=== PATIENT | male | born 1980 | race Caucasian/White ===

== ENCOUNTER 2018-07-06 21:19 | Emergency (ER) | payer SELFPAY ==
[2018-07-06 21:27] VITALS: BP 118/73; PULSE 105; RESP 15; TEMP 36.1; O2SAT 96
--- NOTE | 2018-07-06 21:52 | ED_ITS ---
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 He states he was not wearing a vascular glasses at the time. He states he has just been closing his eyes when he did the welding. He states that he thinks that there is a different type of metal in the welding handle that was burning much hotter than normal. He states that there was not 1 specific incident that caused him to have eye pain. He states that he got home from work and had gradually worsening discomfort in both of his eyes. Related Data Previous Rx's Medication Instructions Recorded tramadol 50 mg PO Q6HP PRN #20 tab 01/11/17 carboxymethylcellulose sodium 1 drop EYE-BOTH .as needed #50 each 07/06/18 [Refresh Plus] erythromycin 0.5 inch EYE-BOTH TID 3 Days #1 07/06/18 gram Allergies Allergy/AdvReac Type Severity Reaction Status Date / Time Sulfa (Sulfonamide Allergy Unknown Unverified 05/26/17 12:13 Antibiotics) [SULFA (SULFONAMIDE ANTIBIOTICS)] Review of Systems Constitutional Denies chills, Denies fatigue and Denies headache(s) Eyes Denies eye discharge, Reports irritation, Reports eye pain, Denies seeing flashes and Reports photophobia ENT Ears, Nose, Mouth, and Throat: Denies vertigo, Denies facial pain and Denies headache(s) Cardiovascular Denies chest pain and Denies dyspnea Respiratory Denies dyspnea Integumentary/Breasts Denies rash Neurologic Denies vertigo and Denies headache(s) Endocrine Denies fatigue Hematologic/Lymphatic Denies easy bleeding and Denies easy bruising REPLACED BY [facility] Medical History Patient denies medical problems (Acute) Social History Smoking Status: Current every day smoker Social History Smoking Status: Current every day smoker Exam Initial Vital Signs Initial Vital Signs: Vital Signs Temperature 97.0 F L 07/06/18 21:27 Pulse Rate 105 H 07/06/18 21:27 Respiratory Rate 15 07/06/18 21:27 Blood Pressure 118/73 07/06/18 21:27 Pulse Oximetry 96 07/06/18 21:27 Const General: No comfortable (On comfortable) Orientation: alert, awake and oriented x3 HENMT Head: normal to inspection and normocephalic Face and sinus: normal facial exam Eyes Periorbital: periorbital findings abnormal (Redness the skin around the eyes) Eyelids: other (Redness around the eyelids) Conjunctivae: conjunctivae normal Cornea: corneas abnormal bilaterally fluorescein used and abrasion diffuse and fluorescein used Pupils: PERRL EOM: EOM intact bilaterally Resp Effort & Inspection: normal respiratory effort Cardio Rate: tachycardic Rhythm: regular rhythm Skin Other: Redness of the skin on his face and eyelids and upper chest and hands. Neuro General: alert and awake Speech: speech normal Extrem General: normal to inspection and capillary refill normal Course Orders Ordered: Discontinued Medications Hydrocodone Bitart/Acetaminophen (Vicodin Prepack) 1 bottle MISC SEEINSTR ONE Stop: 07/06/18 22:58 Last Admin: 07/06/18 23:10 Dose: 1 bottle Hydrocodone Bitart/Acetaminophen ([place] 5/325) 1 tab PO NOW ONE Stop: 07/06/18 22:58 Last Admin: 07/06/18 23:10 Dose: 1 tab Erythromycin (Erythromycin Ophth Oint) 1 applic EYE-BOTH NOW ONE Stop: 07/06/18 22:58 Last Admin: 07/06/18 23:10 Dose: 1 applic Vital Signs - 8 hr 07/06/18 21:27 07/06/18 23:06 Temperature 97.0 F L Pulse Rate 105 H 58 L Respiratory Rate 15 17 Blood Pressure 118/73 Blood Pressure [Left Arm] 129/86 Pulse Oximetry 96 100 MDM - Eye Problem MDM Narrative Medical decision making narrative: Patient was some improvement after the tetracaine eyedrops. There is no foreign bodies noted on exam. Visual acuity is noted. He does have redness of his face and upper chest and arms which I suspect is the heat from the welding today. I do suspect that he has prado to his eyes evident by the diffuse abrasions with the fluorescein staining. I did discuss the case with the on-call vacuum applicator operator at [facility] who recommended copious amounts of refresh tears and also erythromycin ointment. She stated that as long as the patient's symptoms improved in the next couple days he did not necessarily need follow-up with Ophthalmology. Patient was given the phone number for the ophthalmology group here in the area just in case. Also sent home with pain medication. Patient does not were contacts. No prior eye surgeries. He was given return precautions and follow-up instructions. He expressed understanding and agreement with plan. Discharge Plan Departure Patient Disposition: Home Clinical Impression: Bilateral corneal abrasions Qualifiers: Encounter type: initial encounter Qualified Code(s): S05.01XA - Injury of conjunctiva and corneal abrasion without foreign body, right eye, initial encounter Discharge Date/Time: 07/06/18 23:22 Interventions: ED Discharge Assessment Last Done: 07/06/18 23:20 Instructions: DI for Corneal Abrasion Activity Restrictions/Additional Instructions: Use the antibiotic ointment as directed. Also use the refresh tears as directed. If your symptoms are not improving in the next couple days please contact the ophthalmology clinic here at the hospital at [phone]. Return to the emergency department for any new or worsening symptoms Prescriptions: New erythromycin 5 mg/gram (0.5 %) ointment 0.5 inch EYE-BOTH TID 3 Days Qty: 1 RF: 0 Refresh Plus 0.5 % dropperette 1 drop EYE-BOTH .as needed Qty: 50 RF: 0 No Action tramadol 50 MG tablet 50 mg PO Q6HP PRNQty: 20 RF: 0 Referrals: Andreina Chen ARNP [Primary Care Provider] -
[2018-07-06 23:06] VITALS: BP 129/86; PULSE 58; RESP 17; O2SAT 100
[2018-07-06] MEDS: HYDROCODONE/ACET 5/325 TABLET 1 TAB PO (23:10)
[2018-07-06] MEDS: HYDROCODONE/ACET 5/325 PREPACK 1 BOTTLE MISC (23:10)
[2018-07-06] MEDS: ERYTHROMYCIN OPHTH 1 GM OINT 1 APPLIC EYE-BOTH (23:10)
== END 2018-07-06 23:22 | disposition home or self-care (01) ==
PROVIDERS: Emergency Provider Emergency Medicine; PCP Nurse Practitioner Family
DX: S05.01XA Injury of conjunctiva and corneal abrasion without foreign body, right eye, initial encounter (principal); Y93.89 Activity, other specified
CPT/HCPCS: 99283

== ENCOUNTER 2019-11-14 18:55 | Emergency (ER) | payer SELFPAY ==
[2019-11-14 18:59] VITALS: BP 125/72; PULSE 78; RESP 18; TEMP 36.3; O2SAT 99
[2019-11-14 19:33] LABS: COVID19 -Nasal RAPID Negative (Negative)
--- NOTE | 2019-11-14 20:45 | ED.GENADULT ---
HPI - General Adult General Chief complaint: Upper Respiratory Symptoms Stated complaint: COUGH THROAT SWELLING Time Seen by Provider: 11/14/19 20:40 Source: patient Mode of arrival: Ambulatory Limitations: no limitations History of Present Illness HPI narrative: 39-year-old male here for evaluation of a cough and sore throat a problems breathing. No fevers. This evening on the past couple days. Patient is asking for a COVID-19 test. Related Data Previous Rx's Medication Instructions Recorded tramadol 50 mg PO Q6HP PRN #20 tab 01/11/17 carboxymethylcellulose sodium 1 drop EYE-BOTH .as needed #50 each 07/06/18 [Refresh Plus] Allergies Allergy/AdvReac Type Severity Reaction Status Date / Time Sulfa (Sulfonamide Allergy Unknown Unverified 05/26/17 12:13 Antibiotics) [SULFA (SULFONAMIDE ANTIBIOTICS)] Review of Systems Constitutional Constitutional: Reports chills, Reports fatigue and Denies headache(s) ENT Ears, Nose, Mouth, and Throat: Denies headache(s), Denies sinus pain and Reports sore throat Cardiovascular Cardiovascular: Reports dyspnea Respiratory Respiratory: Denies cough and Reports dyspnea Musculoskeletal Musculoskeletal: Denies myalgias Integumentary/Breasts Skin/Breast: Denies lesions and Denies rash Neurologic Neurologic: Denies headache(s) Endocrine Endocrine: Reports fatigue Hematologic/Lymphatic Hematologic/Lymphatic: Denies easy bleeding and Denies easy bruising Patient History Medical History Patient denies medical problems (Acute) Social History Smoking Status: Current every day smoker Smoking Status: Current every day smoker alcohol intake frequency: holidays/special occasions only Substance Use Type: crack/cocaine and other Exam Initial Vital Signs Initial Vital Signs: Vital Signs Temperature 97.3 F L 11/14/19 18:59 Pulse Rate 78 11/14/19 18:59 Respiratory Rate 18 11/14/19 18:59 Blood Pressure 125/72 11/14/19 18:59 Pulse Oximetry 99 11/14/19 18:59 Const General: cooperative and comfortable Limitations: mental status not altered HENMT Head: normal to inspection and normocephalic Ears: TM's normal bilaterally Nose: external nose normal Teeth and gingiva: dentition normal Throat: posterior oropharynx normal Resp Effort & Inspection: normal respiratory effort Auscultation: clear to auscultation bilaterally Cardio Rate: regular rate Rhythm: regular rhythm Skin Lesions: no lesions Rashes: no rashes Extrem General: normal to inspection and capillary refill normal Psych Appearance: grossly normal and well kempt Course Orders Ordered: ED Orders 11/14/19 19:04 COVID19 -ED/INPAT/OR/L&D Stat Discontinued Medications Albuterol (Ventolin Hfa Prepack) 1 box MISC SEEINSTR ONE Stop: 11/14/19 20:46 Last Admin: 11/14/19 20:58 Dose: 1 box Documented by: KIP Vital Signs Vital signs: Vital Signs - 8 hr 11/14/19 20:56 Pulse Rate 72 Respiratory Rate 19 Blood Pressure 123/74 Pulse Oximetry 98 Medical Decision Making Lab Data Lab results reviewed: Yes I reviewed the patient's lab results. Labs: Lab Results 11/14/19 Range/Units 19:04 COVID-19 PCR Negative (Negative) MDM Narrative Medical decision making narrative: Patient has a benign exam. No objective findings concerning for infection. His COVID-19 test was negative. Patient was informed of this. Again hold on further workup for now. Patient was given return precautions and follow-up instructions. He expressed understanding and agreement. Discharge Plan Departure Patient Disposition: Home Clinical Impression: Upper respiratory infection Qualifiers: URI type: unspecified URI Qualified Code(s): J06.9 - Acute upper respiratory infection, unspecified Discharge Date/Time: 11/14/19 20:55 Activity Restrictions/Additional Instructions: Use the albuterol as needed. Your coronavirus test today was negative. I recommend that you start taking an antihistamine such as Claritin or Jasmin or Zyrtec. You can purchase these [id number]. Return to the emergency department for any new or worsening symptoms Prescriptions: No Action tramadol 50 MG tablet 50 mg PO Q6HP PRNQty: 20 RF: 0 Refresh Plus 0.5 % dropperette 1 drop EYE-BOTH .as needed Qty: 50 RF: 0 Referrals: Andreina Chen ARNP [Primary Care Provider] -
--- NOTE | 2019-11-14 20:50 | PC.NURSE ---
RT in room to give pt MDI spacer and prepack.
[2019-11-14 20:56] VITALS: BP 123/74; PULSE 72; RESP 19; O2SAT 98
[2019-11-14] MEDS: ALBUTEROL HFA PREPACK 1 BOX MISC (20:58)
== END 2019-11-14 20:55 | disposition home or self-care (01) ==
PROVIDERS: Emergency Provider Emergency Medicine; PCP Nurse Practitioner Family
DX: J06.9 Acute upper respiratory infection, unspecified (principal)
CPT/HCPCS: 87635; 99281; 99283

== ENCOUNTER 2021-03-03 19:00 | Emergency (ER) | payer OTHER, MEDICAID, SELFPAY ==
[2021-03-03 19:33] VITALS: BP 124/96; PULSE 94; RESP 18; TEMP 36.6; O2SAT 97; BMI 28.8
--- NOTE | 2021-03-03 19:53 | ED_ITS ---
HPI - Animal Bite General Chief Complaint: Animal Bite Stated Complaint: Snake Bite, Water [place] Time Seen by Provider: 03/03/21 19:50 Source: patient Mode of arrival: Ambulatory History of Present Illness HPI narrative: Patient is a 32-year-old male who presents with left hand pain. He states he drove his car up from [place] was working on the engine yesterday. He instantly felt sharp something his left pinky finger. He felt like it swelled up immediately. He said there were 2 holes. he squeezed and hard stuff came out of the holes. The truck came up from [place].The director marketing analytics thought it might be a water moccasin snake however no snake was actually seen. And that no rodent or insect was seen either. He had instant pain and is having increasing pain and numbness in his hand. No fever or chills. Both hands are extremely red and covered and engine grime. Both hands are quite erythematous, he states it is from soaking his hands in red Gatorade. He said he did not have water nearby after he was bit, so he used the red Gatoradeto soak and clean. Admits that he does smoke methamphetamine occasionally. Related Data Previous Rx's Medication Instructions Recorded tramadol 50 mg tablet 50 mg PO Q6HP PRN #20 tab 01/11/17 carboxymethylcellulose sodium 0.5 1 drop EYE-BOTH .as needed #50 each 07/06/18 % eye drops in a dropperette (Refresh Plus) doxycycline hyclate 100 mg capsule 100 mg PO BID #20 cap 03/03/21 Allergies Allergy/AdvReac Type Severity Reaction Status Date / Time Sulfa (Sulfonamide Allergy Unknown Verified 03/03/21 20:02 Antibiotics) [SULFA (SULFONAMIDE ANTIBIOTICS)] Review of Systems Review of Systems Narrative: GENERAL: Denies chills,fever HEENT: Denies throat pain RESPIRATORY: Denies dyspnea, cough, wheezing CARDIOVASCULAR: Denies chest pain, palpitations GASTROINTESTINAL: Denies nausea, vomiting MUSCULOSKELETAL: Denies extremity pain, injury SKIN: See HPI NEUROLOGIC: Denies weakness, dizziness, headache, numbness 8 point review of systems is negative except for those stated above and HPI Patient History Medical History Patient denies medical problems Social History Smoking Status: Current every day smoker Smoking Status: Current every day smoker alcohol intake frequency: holidays/special occasions only Substance Use Type: crack/cocaine and other Exam Initial Vital Signs Initial Vital Signs: Vital Signs Temperature 97.9 F 03/03/21 19:33 Pulse Rate 94 H 03/03/21 19:33 Respiratory Rate 18 03/03/21 19:33 Blood Pressure 124/96 H 03/03/21 19:33 Pulse Oximetry 97 03/03/21 19:33 GENERAL: Well-appearing, well-nourished and in no acute distress. CARDIOVASCULAR: peripheral pulses in tact, cap refill <2 sec RESPIRATORY: No respiratory distress, speaks in full sentences without difficulty EXTREMITIES: Normal range of motion, no clubbing or edema. Neurovascularly intact Left hand little finger between MCP and PIP is swollen no gross drainage he is able to move MCP and PIP and the IP however range of motion is significantly decreased. His hand is scrubbed and cleaned and soaked. No laceration NEUROLOGICAL: Cranial nerves II through XII grossly intact. Normal gait and speech. SKIN: Wound as described above. No laceration no significant fluctuation no drainage. No surrounding erythema Course Orders Ordered: Discontinued Medications Hydromorphone HCl (Hydromorphone 1 Mg Inj) 1 mg IV NOW ONE Stop: 03/03/21 19:55 Last Admin: 03/03/21 20:03 Dose: 1 mg Documented by: SHANTE Vital Signs Vital signs: Vital Signs - 8 hr 03/03/21 23:12 Pulse Rate 68 Respiratory Rate 18 Blood Pressure 119/63 Pulse Oximetry 100 MDM - Animal Bite Lab Data Result diagrams: 03/03/21 19:58 03/03/21 19:58 Labs: Lab Results 03/03/21 03/03/21 03/03/21 Range/Units 19:58 19:58 19:58 WBC 9.7 (4.5-11.0) X10^3/uL RBC 4.84 (4.5-5.9) X10^6/uL Hgb 14.9 (13.5-17.5) g/dL Hct 43.1 (41-53) % MCV 88.9 (80-100) fL MCH 30.8 (26-34) PG MCHC 34.6 (30-36) % RDW 12.9 (11.6-14.8) % Plt Count 248 (150-400) X10^3/uL Neut % (Auto) 64.5 (50-75) % Lymph % (Auto) 22.6 L (25-40) % [place] % (Auto) 7.8 (3-14) % Eos % (Auto) 4.2 H (2-4) % Baso % (Auto) 0.9 (0-2) % Neut # (Auto) 6300 (0142-1917) /uL Lymph # (Auto) 2200 (7083-1206) /uL [place] # (Auto) 800 (0-900) /uL Eos # (Auto) 400 (0-450) /uL Baso # (Auto) 100 (0-100) /uL PT 11.4 (10.1-12.7) SECONDS INR 1.0 (0.9-1.3) APTT 35 (26.4-36.2) SECONDS Fibrinogen 297 (211-428) mg/dL Sodium 137 (137-145) mmol/L Potassium 4.4 (3.4-5.1) mmol/L Chloride 102 (98-107) mmol/L Carbon Dioxide 30 (22-32) mmol/L BUN 21 H (9-20) mg/dL Creatinine 0.88 (0.66-1.25) mg/dL Estimated GFR > 60.0 (>60) mL/min BUN/Creatinine Ratio 23.9 H (6-22) Glucose 108 H (70-100) mg/dL Calcium 9.6 (8.4-10.2) mg/dL Total Bilirubin 1.3 (0.2-1.3) mg/dL AST 81 H (17-59) IU/L ALT 111 H (<50) IU/L Alkaline Phosphatase 89 (38-126) U/L Total Creatine Kinase 278 H (55-170) U/L Total Protein 8.0 (6.3-8.2) g/dL Albumin 4.3 (3.5-5.0) g/dL Globulin 3.7 (1.7-4.1) g/dL Albumin/Globulin Ratio 1.2 (1.0-2.8) MDM Narrative Medical decision making narrative: Patient does have a wound noted in his left pinky MCP on the palmar side. No abscess. No sign of flexor tenosynovitis. Blood work looks okay. Poison Control was contacted. Their recommendations were followed including blood work. At this time patient has no systemic infections of possible poisonous snake bite. Fibrinogen and coagulation and platelets are within normal limits. There are multitude of other things that this could be. Will start him on antibiotics. 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 Discharge Plan Departure Patient Disposition: Home Clinical Impression: Bite by animal Instructions: DI for Spider Bites, DI for Snake Bite Activity Restrictions/Additional Instructions: *You have been diagnosed with bite left hand *What to do: It is unclear what you were bit by. He will be started on antibiotics. Please keep arm elevated to allow for drainage. Apply ice 20-30 minutes as needed *Continue to take medications as directed Doxycycline 100 mg twice a day for or 10 days *Follow up with your primary care provider in 2-3 days or call [phone] *Return to ER if you should have increased pain her swelling in finger, decreased range of motion, inability to bend finger, fever, abnormal bruising bleeding or any new, worsening or concerning symptoms Prescriptions: New doxycycline hyclate 100 mg capsule 100 mg PO BID Qty: 20 0RF No Action tramadol 50 MG tablet 50 mg PO Q6HP PRNQty: 20 0RF Refresh Plus 0.5 % dropperette 1 drop EYE-BOTH .as needed Qty: 50 0RF
[2021-03-03] MEDS: HYDROMORPHONE 1 MG INJ IV (20:03)
[2021-03-03 20:09] LABS: Add Manual Diff / Slide Review NO; Basophils Absolute Auto 100 /uL (0-100); Basophils Percent Auto 0.9 % (0-2); Eosinophils Absolute Auto 400 /uL (0-450); Eosinophils Percent Auto 4.2 % (2-4); Hematocrit 43.1 % (41-53); Hemoglobin 14.9 g/dL (13.5-17.5); Lymphocytes Absolute Auto 2200 /uL (1100-4500); Lymphocytes Percent Auto 22.6 % (25-40); Mean Corpuscular HGB Conc 34.6 % (30-36); Mean Corpuscular Hemoglobin 30.8 PG (26-34); Mean Corpuscular Volume 88.9 fL (80-100); Monocytes Absolute Auto 800 /uL (0-900); Monocytes Percent Auto 7.8 % (3-14); Neutrophils Absolute Auto 6300 /uL (1500-7000); Neutrophils Percent Auto 64.5 % (50-75); Platelet Count 248 X10^3/uL (150-400); Red Blood Cell Count 4.84 X10^6/uL (4.5-5.9); Red Cell Distribution Width 12.9 % (11.6-14.8); White Blood Cell Count 9.7 X10^3/uL (4.5-11.0)
[2021-03-03 20:15] LABS: Prothrombin Time 11.4 SECONDS (10.1-12.7)
[2021-03-03 20:16] LABS: Alanine Aminotransferase 111 IU/L (<50); Albumin 4.3 g/dL (3.5-5.0); Albumin Globulin Ratio 1.2 (1.0-2.8); Alkaline Phosphatase 89 U/L (38-126); Aspartate Aminotransferase 81 IU/L (17-59); BUN Creatinine Ratio 23.9 (6-22); Bilirubin Total 1.3 mg/dL (0.2-1.3); Blood Urea Nitrogen 21 mg/dL (9-20); Calcium 9.6 mg/dL (8.4-10.2); Carbon Dioxide 30 mmol/L (22-32); Chloride 102 mmol/L (98-107); Creatine Kinase 278 U/L (55-170); Estimated Glomerular Filt Rate > 60.0 mL/min (>60); Fibrinogen 297 mg/dL (211-428); Globulin 3.7 g/dL (1.7-4.1); Glucose 108 mg/dL (70-100); HEMOLYSIS 22 (0-50); Potassium 4.4 mmol/L (3.4-5.1); Sodium 137 mmol/L (137-145)
[2021-03-03 20:18] LABS: PTT Partial Thromboplastin Tim 35 SECONDS (26.4-36.2)
[2021-03-03 23:12] VITALS: BP 119/63; PULSE 68; RESP 18; O2SAT 100
== END 2021-03-03 23:25 | disposition home or self-care (01) ==
PROVIDERS: Emergency Provider Emergency Medicine
DX: S61.257A Open bite of left little finger without damage to nail, initial encounter (principal); X58.XXXA Exposure to other specified factors, initial encounter
CPT/HCPCS: 36415; 80053; 82550; 85025; 85384; 85610; 85730; 96374; 99284; J1170

== ENCOUNTER 2021-03-07 00:23 | Inpatient (IN) | payer OTHER, MEDICAID, SELFPAY ==
[2021-03-07] VITALS (12 sets, daily range): BP systolic 105–170; BP diastolic 56–90; PULSE 68–88; RESP 11–99; TEMP 36.2–37.1; O2SAT 11–100; BMI 28.8
--- NOTE | 2021-03-07 00:38 | DI.CT.S_ITS ---
PROCEDURE: CT UE LT W CON INDICATIONS: 5th finger probable abcess TECHNIQUE: After the administration of intravenous contrast, 3 mm axial sections acquired of the left hand and wrist, with coronal and sagittal reformats. COMPARISON: None. FINDINGS: Image quality: Excellent. Bones: Alignment of left distal forearm, wrist and left hand is anatomic. There is no acute fracture or dislocation. Likely old healed injury involving 1st distal phalangeal tuft is seen with well corticated fragment. No gross bony erosive changes. No suspicious intraosseous lesion. Soft tissues: Significant soft tissue swelling and edema surrounding ulnar aspect of left hand extending from distal 5th metacarpal shaft through tip of 5th finger with skin thickening. No discrete drainable fluid collection is identified. No full-thickness extensor or flexor tendon rupture. IMPRESSION: 1. Cellulitis involving left 5th finger. No discrete drainable abscess collection is seen. 2. No acute left hand fracture or dislocation. No evidence of osteomyelitis. Old healed injury involving 1st distal phalangeal tuft. Dictated by: Richi No M.D. on 03/07/2021 at 1:31 Approved by: Richi No M.D. on 03/07/2021 at 1:35
[2021-03-07] MEDS: LORazepam 2 MG/ML INJ 1 MG IV (00:53)
[2021-03-07] MEDS: cefTRIAXone 1,000 MG in SODIUM CHLORIDE 0.9% 100 ML 200 ML IV ×2 (00:53→22:38)
[2021-03-07] MEDS: HYDROMORPHONE 1 MG INJ IV (00:53)
[2021-03-07 01:04] LABS: Lactate (Lactic Acid) 1.8 mmol/L (0.7-2.1)
[2021-03-07 01:09] LABS: Add Manual Diff / Slide Review NO; Basophils Absolute Auto 100 /uL (0-100); Basophils Percent Auto 0.9 % (0-2); Eosinophils Absolute Auto 400 /uL (0-450); Eosinophils Percent Auto 3.3 % (2-4); Hemoglobin 14.6 g/dL (13.5-17.5); Lymphocytes Absolute Auto 1900 /uL (1100-4500); Lymphocytes Percent Auto 16.5 % (25-40); Mean Corpuscular HGB Conc 33.9 % (30-36); Mean Corpuscular Hemoglobin 30.7 PG (26-34); Mean Corpuscular Volume 90.5 fL (80-100); Monocytes Absolute Auto 1200 /uL (0-900); Monocytes Percent Auto 10.4 % (3-14); Neutrophils Absolute Auto 8000 /uL (1500-7000); Neutrophils Percent Auto 68.9 % (50-75); Platelet Count 256 X10^3/uL (150-400); Red Blood Cell Count 4.75 X10^6/uL (4.5-5.9); Red Cell Distribution Width 12.9 % (11.6-14.8); White Blood Cell Count 11.6 X10^3/uL (4.5-11.0)
[2021-03-07 01:23] LABS: Alanine Aminotransferase 92 IU/L (<50); Albumin 4.1 g/dL (3.5-5.0); Albumin Globulin Ratio 1.2 (1.0-2.8); Alkaline Phosphatase 83 U/L (38-126); Aspartate Aminotransferase 52 IU/L (17-59); Blood Urea Nitrogen 13 mg/dL (9-20); C-Reactive Protein Quant 3.6 mg/dL (<1.0); Carbon Dioxide 33 mmol/L (22-32); Chloride 103 mmol/L (98-107); Estimated Glomerular Filt Rate > 60.0 mL/min (>60); Globulin 3.5 g/dL (1.7-4.1); Glucose 92 mg/dL (70-100); HEMOLYSIS < 15 (0-50); Potassium 4.4 mmol/L (3.4-5.1); Sodium 139 mmol/L (137-145); Total Protein 7.6 g/dL (6.3-8.2)
[2021-03-07 01:33] LABS: Erythrocyte Sedimentation Rate 10 MM/HR (0-15)
[2021-03-07 01:37] LABS: Procalcitonin 0.13 ng/mL (<0.5)
--- NOTE | 2021-03-07 01:40 | ED_ITS ---
HPI - Extremity Injury (Upper) General Chief Complaint: Extremity Injury, Upper Stated Complaint: blood clot left arm/pain cannot stand Time Seen by Provider: 03/07/21 00:30 Source: patient Mode of arrival: Wheelchair History of Present Illness HPI narrative: Patient is a 40-year-old male who had with to using methamphetamine and smoking heroin presenting today with worsening left hand pain and redness. He was initially seen and evaluated 4 days ago. He was working on his engine when he thought he was bit by a snake however is no be actually saw a snake or anything else that could have bit him. He denies injecting into that finger. He was put on doxycycline which he states he been taking, however he has had worsening pain swelling and redness. He has significant decreased range of motion in his the pinky. Pain seems to be quite a bit out of control at this time. He is not sure if he had any fever or chills. He has been smoking heroin to help with the pain. Patient has is covered and white elder he says that he has been soaking it and baking soda or baking powder. It is also washed off. Related Data Previous Rx's Medication Instructions Recorded doxycycline hyclate 100 mg capsule 100 mg PO BID #20 cap 03/03/21 Allergies Allergy/AdvReac Type Severity Reaction Status Date / Time Sulfa (Sulfonamide Allergy Unknown Verified 03/03/21 20:02 Antibiotics) [SULFA (SULFONAMIDE ANTIBIOTICS)] Review of Systems Review of Systems Narrative: GENERAL: Denies chills, fatigue, malaise, fever, sweats, travel HEENT: Denies sinus pain, ear pain, sore throat, difficulty swallowing, neck pain RESPIRATORY: Denies dyspnea, cough, wheezing, hemoptysis, sputum. CARDIOVASCULAR: Denies chest pain, palpitations, orthopnea, edema GASTROINTESTINAL: Denies nausea, vomiting, abdominal pain, diarrhea, constipation, melena. : Denies dysuria, frequency, incontinence, hematuria, urinary retention, flank pain. MUSCULOSKELETAL: Denies weakness, joint pain, or bony pain SKIN: See HPI NEUROLOGIC: Denies weakness, dizziness, headache, numbness, change in speech, confusion PSYCHIATRIC: Polysubstance use 12 point review of systems is negative except for those stated above and HPI Patient History Medical History (Updated 03/07/21 @ 01:55 by Kalyn Jimenez DO) Patient denies medical problems Social History household members: significant other Smoking Status: Current every day smoker alcohol intake: never Smoking Status: Current every day smoker alcohol intake frequency: holidays/special occasions only Substance Use Type: crack/cocaine, heroin and methamphetamine Exam Initial Vital Signs Initial Vital Signs: Vital Signs Temperature 98 F 03/07/21 00:31 Pulse Rate 88 03/07/21 00:31 Respiratory Rate 20 03/07/21 00:31 Blood Pressure 170/72 H 03/07/21 00:31 Pulse Oximetry 100 03/07/21 00:31 GENERAL: Alert 40-year-old male appears to be in severe pain HEENT: Head atraumatic,EOMI, pupils reactive, face symmetric, moist mucous membranes CARDIOVASCULAR: R no cyanosis peripheral pulses intact RESPIRATORY: No respiratory distress EXTREMITIES: Normal range of motion, no clubbing or edema. Neurovascularly intact NEUROLOGICAL: Alert and oriented x4. SKIN: Significant erythema noted on left hand mostly little finger however it is spreading over the dorsum of the hand quite a bit. Possible abscess between MCP and PIP. No actual drainage Course Orders Ordered: ED Orders 03/07/21 00:38 CT UE LT w con Stat 03/07/21 00:40 Lactate (Lactic Acid) Stat 03/07/21 00:55 Blood Culture Stat CBC Auto Diff [Complete Blood Count AUTO DIFF] Stat CMP [Comprehensive Metabolic Panel] Stat CRP [C-Reactive Protein Quant] Stat ESR [Erythrocyte Sedimentation Rate] Stat Procalcitonin Stat Discontinued Medications Hydromorphone HCl (Hydromorphone 1 Mg Inj) 1 mg IV NOW ONE Stop: 03/07/21 00:39 Last Admin: 03/07/21 00:53 Dose: 1 mg Documented by: URIAH Vancomycin HCl (Vancomycin) 1,250 mg in 250 mls @ 250 mls/hr IV NOW ONE Stop: 03/07/21 01:38 Last Infusion: 03/07/21 02:53 Dose: 0 mls/hr Documented by: Admin: 03/07/21 01:42 Dose: 250 mls/hr Documented by: LOUISE Ceftriaxone Sodium 1,000 mg/ (Sodium Chloride) 100 mls @ 200 mls/hr IV NOW ONE Stop: 03/07/21 00:39 Last Infusion: 03/07/21 01:41 Dose: 0 mls/hr Documented by: Admin: 03/07/21 00:53 Dose: 200 mls/hr Documented by: URIAH Lorazepam (Lorazepam 2 Mg/Ml Inj) 1 mg IV NOW ONE Stop: 03/07/21 00:39 Last Admin: 03/07/21 00:53 Dose: 1 mg Documented by: URIAH Vital Signs Vital signs: Vital Signs - 8 hr 03/07/21 00:31 03/07/21 01:33 Temperature 98 F Pulse Rate 88 84 Respiratory Rate 20 16 Blood Pressure 170/72 H 147/71 H Pulse Oximetry 100 98 MDM - Extremity Injury (Upper) Lab Data Result diagrams: 03/07/21 00:55 03/07/21 00:55 Labs: Lab Results 03/07/21 03/07/21 03/07/21 Range/Units 00:40 00:55 00:55 WBC 11.6 H (4.5-11.0) X10^3/uL RBC 4.75 (4.5-5.9) X10^6/uL Hgb 14.6 (13.5-17.5) g/dL Hct 43.0 (41-53) % MCV 90.5 (80-100) fL MCH 30.7 (26-34) PG MCHC 33.9 (30-36) % RDW 12.9 (11.6-14.8) % Plt Count 256 (150-400) X10^3/uL Neut % (Auto) 68.9 (50-75) % Lymph % (Auto) 16.5 L (25-40) % [place] % (Auto) 10.4 (3-14) % Eos % (Auto) 3.3 (2-4) % Baso % (Auto) 0.9 (0-2) % Neut # (Auto) 8000 H (4363-4331) /uL Lymph # (Auto) 1900 (7204-7982) /uL [place] # (Auto) 1200 H (0-900) /uL Eos # (Auto) 400 (0-450) /uL Baso # (Auto) 100 (0-100) /uL ESR 10 (0-15) MM/HR Sodium 139 (137-145) mmol/L Potassium 4.4 (3.4-5.1) mmol/L Chloride 103 (98-107) mmol/L Carbon Dioxide 33 H (22-32) mmol/L BUN 13 (9-20) mg/dL Creatinine 1.08 (0.66-1.25) mg/dL Estimated GFR > 60.0 (>60) mL/min BUN/Creatinine Ratio 12.0 (6-22) Glucose 92 (70-100) mg/dL Lactate 1.8 (0.7-2.1) mmol/L Calcium 9.0 (8.4-10.2) mg/dL Total Bilirubin 1.0 (0.2-1.3) mg/dL AST 52 (17-59) IU/L ALT 92 H (<50) IU/L Alkaline Phosphatase 83 (38-126) U/L C-Reactive Protein 3.6 H (<1.0) mg/dL Total Protein 7.6 (6.3-8.2) g/dL Albumin 4.1 (3.5-5.0) g/dL Globulin 3.5 (1.7-4.1) g/dL Albumin/Globulin Ratio 1.2 (1.0-2.8) Procalcitonin 0.13 (<0.5) ng/mL Imaging Data CT UE : Radiologist's Impression: PROCEDURE:? CT UE LT W CON ? INDICATIONS:? 5th finger probable abcess ? TECHNIQUE:? After the administration of intravenous contrast, 3 mm axial sections acquired of the left hand and wrist, with coronal and sagittal reformats. ? ? COMPARISON:? None. ? FINDINGS:? Image quality:? Excellent.? ? Bones:? Alignment of left distal forearm, wrist and left hand is anatomic.? There is no acute fracture or dislocation.? Likely old healed injury involving 1st distal phalangeal tuft is seen with well corticated fragment.? No gross bony erosive changes.? No suspicious intraosseous lesion. ? Soft tissues:? Significant soft tissue swelling and edema surrounding ulnar aspect of left hand extending from distal 5th metacarpal shaft through tip of 5th finger with skin thickening.? No discrete drainable fluid collection is identified.? No full- thickness extensor or flexor tendon rupture. ? IMPRESSION:? 1. Cellulitis involving left 5th finger.? No discrete drainable abscess collection is seen. 2. No acute left hand fracture or dislocation.? No evidence of osteomyelitis.? Old healed injury involving 1st distal phalangeal tuft.? ? Dictated by: Richi No M.D. on 03/07/2021 at 1:31 ? ? Approved by: Richi No M.D. on 03/07/2021 at 1:35? [facility] Narrative Medical decision making narrative: Patient is an pain out of proportion. He does have significant erythema and swelling of his left hand. Little finger has significantly decreased range of motion. It is held in why slight flexion concern for flexor tenosynovitis possible abscess this well. CT does not show abscess. He is afebrile with mild leukocytosis and elevated ESR. Pain is better with Dilaudid and Ativan. He is given Rocephin and vancomycin. Dr. No orthopedics has been updated on patient's symptoms test results and my concerns. At this time he agrees with IV antibiotics recommends NPO and MRI in the morning. Dr. Basilio, hospitalist updated patient's symptoms test results and orthopedic recommendations Discharge Plan Departure Patient Disposition: Admitted As Inpatient Clinical Impression: Cellulitis of hand Admit Date/Time: 03/07/21 01:59 Admit Provider: Alan Basilio
[2021-03-07] MEDS: VANCOMYCIN 1,250 MG/250 ML PIGGYBACK 250 MG IV (01:42)
[2021-03-07] MEDS: DEXTROSE 5%-0.9% NS 1,000 ML 100 ML IV (03:44)
[2021-03-07] MEDS: ZOLPIDEM 5 MG TABLET PO (03:44)
--- NOTE | 2021-03-07 03:55 | PC.NURSE ---
Pt. admitted from ER via wheelchair,diagnosed with left hand & fingers cellulitis. He was accompanied by his significant other Darline Devlin who will be staying in his room this morning. 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 C/O insomnia & pain, notified Dr. Basilio & order received, will implement orders PRN. Will cont. POC & monitor.
[2021-03-07] MEDS: HYDROMORPHONE 2 MG INJ 1 MG IV ×4 (04:39→23:55)
--- NOTE | 2021-03-07 06:09 | P.HP_ITS ---
History of Present Illness History of Present Illness Date Patient Seen: 03/07/21 Time Patient Seen: 06:09 Chief complaint: blood clot left arm/pain cannot stand Narrative: This is a 40 year old male with a left hand infection. He has no known past medical history. He has recently received Ambien and hydromorphone so is struggling to communicate at 5:00 a.m. today. His girlfriend is in the room and indicates that she is not aware of any other medical history. He does have chronically swollen hands and has been complaining to her about his hands hurting for some months. He was working on a car with his hand in an area that he could not see when he felt a sudden pain that he interpreted to be a ?bite?. No insect or snake or other animal capable of biting was seen. He was seen for this in the emergency department 5 days ago and was started on doxycycline. He returns last evening with increasing pain and swelling. His CRP is 3.6 with a white blood count of 11 and a normal ESR of 10. A CT scan of the left hand shows no discrete fluid collection. He was discussed with orthopedics who recommended that he undergo an MRI today and be kept NPO pending possible need for surgery. He has never had an infection like this before but his hands are c aked in grease and appear quite swollen bilaterally. Patient History Medical History (Updated 03/07/21 @ 06:23 by Alan Basilio MD) No pertinent past medical history Patient denies medical problems Surgical History (Updated 03/07/21 @ 06:23 by Alan Basilio MD) No significant past surgical history Family & Social History Family History (Updated 03/07/21 @ 06:24 by Alan Basilio MD) Mother No active medical problems Social History: household members significant other Prior Living Arrangements Mobile home Safety & Behavioral: Feels Safe in Current Yes Environment Been Physically Hurt or No Threatened By a Person Suicidal Ideation Description None Suicide Plan Description No Plan Tobacco & Substance use: Smoking Status Current every day smoker Smoking packs per day 1 alcohol intake never alcohol intake frequency holiday/special occasion Substance Use Type crack/cocaine,heroin,methamphetamine Comment: He lives alone in an on friend's property. His girlfriend, Darline Devlin, lives in her own home in [place]. 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 His hands are caked in grease. Meds Home Medications and Allergies Home Medications Medication Instructions Recorded Confirmed Type doxycycline hyclate 100 mg capsule 100 mg PO BID #20 cap 03/03/21 03/07/21 Rx Allergies Allergy/AdvReac Type Severity Reaction Status Date / Time Sulfa (Sulfonamide Allergy Unknown Verified 03/03/21 20:02 Antibiotics) [SULFA (SULFONAMIDE ANTIBIOTICS)] Review of Systems Review of Systems Narrative: Positive for bilateral hand swelling. Positive for left hand pain and infection Negative for fevers, chills, sweats, nausea, vomiting, abdominal pain, chest pain, dysuria, bleeding, rash, joint pain, seizures, headaches, new allergies. Exam Vital Signs (past 8 hours): - 03/07/21 00:31 03/07/21 01:33 03/07/21 03:10 Temperature 98 F 98.1 F Pulse Rate 88 84 81 Respiratory Rate 20 16 18 Blood Pressure 170/72 H 147/71 H 160/90 H Pulse Oximetry 100 98 99 Oxygen Delivery Method Room Air Narrative Exam Narrative: He is alert and oriented x3. No apparent distress He has recently received both Ambien and hydromorphone so appears quite sedated and is mumbling and difficult to understand. His girlfriend is sitting next to him and is able to interpret what he says and add to the history. Pupils are equally round and reactive to light and accommodation. Extraocular muscles are intact. Sclerae are pink and nonicteric Throat looks normal except for an enlarged tongue. No lymph nodes are felt head, neck, supraclavicular area. JVD is less than 6 cm No carotid bruits are heard Heart is regular rate and rhythm without murmur Lungs are clear to auscultation bilaterally Abdomen is soft, nontender, no organomegaly. Extremities there is no ankle edema or foot swelling Both hands are very puffy and swollen The back of the left hand as to healed scratches and has several areas of slight pink discoloration. This does not really localize well. This extends up to the forearm somewhat. He is guarding against movement of the left hand and is unable to make fist. Neurological exam. The patient is obtunded due to recent medication Cranial nerves 2-12 test intact There is no lateralizing of symmetry There is no tremor Motor function is 4/[address] Hand: Radiologist's impression: FINDINGS:? Image quality:? Excellent.? ? Bones:? Alignment of left distal forearm, wrist and left hand is anatomic.? There is no acute fracture or dislocation.? Likely old healed injury involving 1st distal phalangeal tuft is seen with well corticated fragment.? No gross bony erosive changes.? No suspicious intraosseous lesion. ? Soft tissues:? Significant soft tissue swelling and edema surrounding ulnar aspect of left hand extending from distal 5th metacarpal shaft through tip of 5th finger with skin thickening.? No discrete drainable fluid collection is identified.? No full-thickness extensor or flexor tendon rupture. ? IMPRESSION:? 1. Cellulitis involving left 5th finger.? No discrete drainable abscess collection is seen. 2. No acute left hand fracture or dislocation.? No evidence of osteomyelitis.? Old healed injury involving 1st distal phalangeal tuft.? ? Dictated by: Richi No M.D. on 03/07/2021 at 1:31 ? Labs Result Diagrams: 03/07/21 00:55 03/07/21 00:55 Labs: Laboratory Results - last 24 hr 03/07/21 03/07/21 03/07/21 00:40 00:55 00:55 WBC 11.6 H RBC 4.75 Hgb 14.6 Hct 43.0 MCV 90.5 MCH 30.7 MCHC 33.9 RDW 12.9 Plt Count 256 Neut % (Auto) 68.9 Lymph % (Auto) 16.5 L [place] % (Auto) 10.4 Eos % (Auto) 3.3 Baso % (Auto) 0.9 Neut # (Auto) 8000 H Lymph # (Auto) 1900 [place] # (Auto) 1200 H Eos # (Auto) 400 Baso # (Auto) 100 ESR 10 Sodium 139 Potassium 4.4 Chloride 103 Carbon Dioxide 33 H BUN 13 Creatinine 1.08 Estimated GFR > 60.0 BUN/Creatinine Ratio 12.0 Glucose 92 Lactate 1.8 Calcium 9.0 Total Bilirubin 1.0 AST 52 ALT 92 H Alkaline Phosphatase 83 C-Reactive Protein 3.6 H Total Protein 7.6 Albumin 4.1 Globulin 3.5 Albumin/Globulin Ratio 1.2 Procalcitonin 0.13 Assessment & Plan Assessment & Plan narrative: This is a 40-year-old previously healthy male with recent onset of bilateral hand pain and swelling who now presents with acute pain/swelling in the left hand after a ?bite? 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 Left hand cellulitis, present on admission. Active. -worsening despite 4-5 days of oral doxycycline. -CRP elevated at 3.6 with ESR of 10 and white blood count of 11. -begin vancomycin and ceftriaxone IV -hand MRI pending -orthopedic consult pending, patient is now NPO as a precaution for possible need for debridement. Bilateral hand swelling, present on admission. Active. -repeat CRP, check growth hormone -rule out rheumatologic disorder No Lovenox indicated so far as patient is mobile in the room without expected prolonged immobilization. Time Spent With Patient Critical Care time: I spent a total of [] minutes of critical care time on this patient's care today; this time is exclusive of procedural time. Quality VTE Deep Vein Thrombosis/Pulmonary Embolism Present on Admission: No
--- NOTE | 2021-03-07 06:34 | DI.MRI.S_ITS ---
PROCEDURE: MR HAND LT WO/W CON INDICATIONS: hand abscess TECHNIQUE: Noncontrast coronal T1 spin echo and STIR, sagittal T1 spin echo with fat saturation and STIR, axial T1 spin echo and T2 fast spin echo with fat saturation. After the administration of contrast, axial/sagittal/coronal T1 spin echo with fat saturation through the left hand. COMPARISON: [facility], CT, CT UE LT W CON, 03/07/2021, 0:41. [facility], CR, HAND 3V LEFT, 08/09/2014, 21:50. FINDINGS: Image quality: There is inhomogeneous fat saturation limiting evaluation. Bones: No acute fracture. There is an old fracture of the 5th distal phalanx. There is also a small chronic fracture fragment adjacent to the 1st distal phalanx. There is suspected minimal edema and enhancement within the 5th middle phalanx suspicious for osteomyelitis. No discrete bony erosions. No joint effusions. Soft tissues: There is diffuse soft tissue edema and enhancement of the 5th digit as well as the ulnar aspect of the 4th digit and the ulnar aspect of the hand consistent with cellulitis. No discrete drainable abscess collection is identified. There is mild associated edema and enhancement of the ulnar sided musculature in the hand compatible with mild myositis. Visualized flexor and extensor tendons appear intact. There is mild peritendinous edema and enhancement along the flexor tendons of the 5th digit compatible with peritendinitis. IMPRESSION: 1. Soft tissue edema and enhancement involving the 5th digit as well as the ulnar aspect of the 4th digit and ulnar aspect of the hand compatible with cellulitis. No discrete abscess collection identified. 2. Suggestion of minimal edema and enhancement within the 5th middle phalanx suspicious for osteomyelitis. No discrete bony erosions identified. Dictated by: Joshua De Luna M.D. on 03/07/2021 at 16:48 Approved by: Joshua De Luna M.D. on 03/07/2021 at 16:57
[2021-03-07] MEDS: VANCOMYCIN PER PHARMACY 1 REQUEST MISC (07:10)
[2021-03-07 07:32] LABS: Add Manual Diff / Slide Review NO; Basophils Absolute Auto 100 /uL (0-100); Basophils Percent Auto 0.7 % (0-2); Eosinophils Absolute Auto 400 /uL (0-450); Eosinophils Percent Auto 3.3 % (2-4); Hematocrit 43.3 % (41-53); Hemoglobin 14.9 g/dL (13.5-17.5); Lymphocytes Absolute Auto 1900 /uL (1100-4500); Lymphocytes Percent Auto 15.1 % (25-40); Mean Corpuscular HGB Conc 34.3 % (30-36); Mean Corpuscular Hemoglobin 30.8 PG (26-34); Mean Corpuscular Volume 89.8 fL (80-100); Monocytes Absolute Auto 1000 /uL (0-900); Monocytes Percent Auto 8.2 % (3-14); Neutrophils Absolute Auto 9300 /uL (1500-7000); Neutrophils Percent Auto 72.7 % (50-75); Platelet Count 269 X10^3/uL (150-400); Red Blood Cell Count 4.82 X10^6/uL (4.5-5.9); Red Cell Distribution Width 12.8 % (11.6-14.8); White Blood Cell Count 12.7 X10^3/uL (4.5-11.0)
[2021-03-07 07:39] LABS: C-Reactive Protein Quant 4.6 mg/dL (<1.0)
[2021-03-07] MEDS: KETOROLAC 30 MG/ML VIAL IV ×2 (07:41→16:44)
[2021-03-07] MEDS: VANCOMYCIN 1,250 MG/250 ML PIGGYBACK 200 MG IV ×2 (07:42→14:19)
--- NOTE | 2021-03-07 08:40 | P.CONS_ITS ---
History of Present Illness Consult details Date Patient Seen: 03/07/21 Time Patient Seen: 08:41 Chief complaint: left hand pain and swelling Reason for consult: Hand infection Requesting provider: Alan Basilio Narrative: Patient is very somnolent and difficult to arouse on my visit today; presume this is due to Ambien and Dilaudid he received around 0400. Based on hospital records, he presented to the ED here on 03/03/21 thinking that he may have been bitten by a snake; workup was not consistent with a poisonous bite. He has a history of IVDA. He was discharged with doxycycline - which he says he was taki ng as directed - and tramadol. He came back to the ED last night complaining of increased pain and decreased function in left hand. He was smoking heroin for pain control. He denied that the puncture site on his left fifth finger MCP was from an injection. Meds Home Medications and Allergies Home Medications Medication Instructions Recorded Confirmed Type doxycycline hyclate 100 mg capsule 100 mg PO BID #20 cap 03/03/21 03/07/21 Rx Allergies Allergy/AdvReac Type Severity Reaction Status Date / Time Sulfa (Sulfonamide Allergy Unknown Verified 03/03/21 20:02 Antibiotics) [SULFA (SULFONAMIDE ANTIBIOTICS)] Review of Systems Review of Systems Narrative: Unable to keep pt awake for more detailed interview. Exam Vital Signs (past 8 hours): - 03/07/21 01:33 03/07/21 03:10 Temperature 98.1 F Pulse Rate 84 81 Respiratory Rate 16 18 Blood Pressure 147/71 H 160/90 H Pulse Oximetry 98 99 Oxygen Delivery Method Room Air Narrative Exam Narrative: His CRP is 4.6 with a white blood count of 12.7 and a normal ESR of 10.? A CT scan of the left hand shows no discrete fluid collection.?Currently on vancomycin and ceftriaxone. Const General: cooperative and healthy appearing Orientation: oriented to person and other (Difficult to arouse, follows commands and answers questions appropriately) Extrem Other: Left hand is markedly swollen, particularly on the lateral side. Thumb and index finger are not as swollen as other digits. Swelling does not appear to involve the wrist. 5/5 palmar and dorsiflexion of wrist. Complains of little pain throughout hand, but pain to palpation around puncture site on palmar side of 5th digit MCP. Unable to feel light touch throughout rest of 5th digit. 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 Objective Labs Result Diagrams: 03/07/21 07:11 03/07/21 00:55 Labs: Laboratory Results - last 24 hr 03/07/21 03/07/21 03/07/21 00:40 00:55 00:55 WBC 11.6 H RBC 4.75 Hgb 14.6 Hct 43.0 MCV 90.5 MCH 30.7 MCHC 33.9 RDW 12.9 Plt Count 256 Neut % (Auto) 68.9 Lymph % (Auto) 16.5 L [place] % (Auto) 10.4 Eos % (Auto) 3.3 Baso % (Auto) 0.9 Neut # (Auto) 8000 H Lymph # (Auto) 1900 [place] # (Auto) 1200 H Eos # (Auto) 400 Baso # (Auto) 100 ESR 10 Sodium 139 Potassium 4.4 Chloride 103 Carbon Dioxide 33 H BUN 13 Creatinine 1.08 Estimated GFR > 60.0 BUN/Creatinine Ratio 12.0 Glucose 92 Lactate 1.8 Calcium 9.0 Total Bilirubin 1.0 AST 52 ALT 92 H Alkaline Phosphatase 83 C-Reactive Protein 3.6 H Total Protein 7.6 Albumin 4.1 Globulin 3.5 Albumin/Globulin Ratio 1.2 Procalcitonin 0.13 03/07/21 03/07/21 07:11 07:11 WBC 12.7 H RBC 4.82 Hgb 14.9 Hct 43.3 MCV 89.8 MCH 30.8 MCHC 34.3 RDW 12.8 Plt Count 269 Neut % (Auto) 72.7 Lymph % (Auto) 15.1 L [place] % (Auto) 8.2 Eos % (Auto) 3.3 Baso % (Auto) 0.7 Neut # (Auto) 9300 H Lymph # (Auto) 1900 [place] # (Auto) 1000 H Eos # (Auto) 400 Baso # (Auto) 100 ESR Sodium Potassium Chloride Carbon Dioxide BUN Creatinine Estimated GFR BUN/Creatinine Ratio Glucose Lactate Calcium Total Bilirubin AST ALT Alkaline Phosphatase C-Reactive Protein 4.6 H Total Protein Albumin Globulin Albumin/Globulin Ratio Procalcitonin [facility] Medical History (Updated 03/07/21 @ 06:23 by Alan Basilio MD) No pertinent past medical history Patient denies medical problems Surgical History (Updated 03/07/21 @ 06:23 by Alan Basilio MD) No significant past surgical history Family History (Updated 03/07/21 @ 06:24 by Alan Basilio MD) Mother No active medical problems Social History household members: significant other Tobacco & Substance Use Smoking Status: Current every day smoker alcohol intake: never substance use type: heroin, IV drugs and methamphetamine (per hospital provider notes) Assessment & Plan Assessment and plan (1) Cellulitis of hand: Status: Acute Plan MRI of left hand scheduled for 1430 today. Case discussed with Dr Cummings. Will await results and continue NPO today in the event that surgery is indicated. Time Spent With Patient Critical Care time: I spent a total of [] minutes of critical care time on this patient's care today; this time is exclusive of procedural time.
--- NOTE | 2021-03-07 11:11 | CM.DANOTE ---
DCP: Case received, EMR reviewed. Patient has been somnolent, and currently unable to interview. Was able to get some information from nursing, since his significant other was recently here, as well as further information in EMR. DCP assessment completed based upon information currently available. Patient is a 40 year old male who admitted early this morning to the care of the hospitalist team. PCP: None noted. Insurance: None, was given Apple application from admission counselors. Patient came to the hospital via private vehicle secondary to having left hand pain and redness. According to notes, patient had been seen about 4 days ago. He had been working on his engine in his car, thought that he was bitten by a snake, and did not physically see the snake. He had noted increased pain to his left hand, 5th finger. He was diagnosed with cellulitis involving left 5th finger. He is scheduled for an MRI this afternoon. Patient has history of IV drug use, and had been smoking heroin for the pain. His mother, Penelope Tran, had called and spoke to the nursing indicating that patient is developmentally delayed. He resides with his significant other, Darline Devlin. 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 Patient had been sleeping, and now is crying out from his room, and nursing is in the room. His significant other is not currently here, but expected to be back later. According to notes, patient resides alone in an on friend's property, and his girl friend lives in her own home in [place]. 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 P: DCP to continue to follow for any needs. He will be having MRI today to rule out osteomyelitis. Plan is home when medically stable. Will attempt to meet with patient or significant later on today when patient is more stable for conversation. Patricia Burris RN/Adjustment Clerk Discharge Planning/Care Management Advanced directive, confirm from FAMILY Start: 03/07/21 03:10 Freq: Q24H Status: Active Protocol: Document 03/07/21 03:10 MP (Rec: 03/07/21 04:50 MP [id number]) Advance Directive, confirm on record Time 04:50 Person contacted pt. Copy received No Copy received No Advanced directive available on record No CM Discharge Assessment Start: 03/07/21 11:09 Freq: Status: Active Protocol: Document 03/07/21 11:09 (Rec: 03/07/21 11:11 [id number]) Discharge Planning Assessment Assigned Financial Report Service Sales Agent Patricia Burris RN/Adjustment Clerk Advance Directives? No Advance Directives on File No History Provided By Patient,Family Member,Medical Record Prior Living Arrangements Mobile home Household Members significant other Type of transporation used prior to Drives own vehicle admit Independent with ADL's Yes Is patient alert and oriented? Yes Caregiver for Another No Barriers to Discharge Yes Comment Patient has no primary care provider, no insurance as well . He has history of IV Drug user. Discharge Plan Home Referrals Initiated None needed Review Status In Process Next Review Type Continued Stay Review
[2021-03-07] MEDS: HYDROCODONE/ACET 5/325 TABLET 2 TAB PO ×3 (11:27→23:01)
--- NOTE | 2021-03-07 17:09 | PM.PREOP ---
Pre-operative Note COVID-19 COVID-19 status: Negative Criteria for continued procedure: Expected advancement of disease process, Possibility delay results in more complex future surgery or treatment, Increased loss of function, Continuing or worsening of significant or severe pain, Deterioration of the patient's condition or overall health and Non-surgical alternatives not available or appropriate per current SOC Interval Note History & Physical reviewed/Exam performed by Physician: Yes Changes to H&P: No
--- NOTE | 2021-03-07 17:29 | SUR.OPER ---
Supine on padded OR bed, head on pillow, nonoperative arm secured on padded arm board at <90 degrees abduction, operative arm on hand table, legs uncrossed, safety belt at thigh, tape over blanket over lower legs.
[2021-03-07 17:41] LABS: COVID19 -Nasal RAPID POSITIVE (Negative)
[2021-03-07] MEDS: BUPIVACAINE 0.25% (PF) 30 ML, EPINEPHrine 0.15 MG INJ (18:52)
--- NOTE | 2021-03-07 19:07 | PC.NURSE ---
Pt taken for surgery via bed at 1800. NPO he states for >24 hours.
--- NOTE | 2021-03-07 19:21 | PM.OP.1 ---
Operative Date/Time/Diagnoses Date of procedure: 03/07/21 Time of procedure: 19:21 Pre-op diagnosis: 1. Flexor tenosynovitis left finger-small finger 2. Finger abscess left index finger 3. COVID-19 positive 4. History of IV drug use Post-op diagnosis: same Procedure & Clinicians Procedure: 1. Irrigation debridement and drainage flexor tendon sheath left 5th digit, small finger CPT code 34887 -F4 2. Drainage abscess left index finger CPT code 61905- F 1-59 Same procedure as scheduled: Yes Indications: Patient is a 40-year-old [id number]-[id number] male with a history of IV drug use that recently moved to the area that presents with several days history of left hand swelling and pain. He reportedly was working and reaching around the motor of his car when he felt acute sharp pain. He thought this was an animal bite because is follow-up right away but it may have been a puncture. He was seen in the emergency room for pain and swelling initially prescribed outpatient antibiotics and discharged. Return to the ER yesterday with increased pain and swelling and was admitted with cellulitis. He has been on IV antibiotics overnight without improvement. CT scan did not show any discernible drainable abscess. MRI demonstrated the same but on clinical examination the patient has fusiform swelling of the left small finger with a pointed particularly swollen area over the volar proximal phalanx region of the small finger consistent with abscess at the site of the puncture wound. Also has a focal pointed area consistent with abscess along the dorsum of the left index finger. The patient does give a history of some thick white cottage cheese like material coming out of the puncture wound a day or 2 ago when he squeezed it. Presentation is consistent with flexor tenosynovitis was separate abscess on the left index finger. Patient has been indicated for operative drainage and debridement of the small finger flexor tenosynovitis and index finger abscess. The risks and benefits of the procedure have been discussed with the patient given the opportunity to ask questions. The risks of surgery include but are not limited to infection, need for additional procedures, stiffness,persistence of pain, damage to nerves and blood vessels, posttraumatic arthritis, DVT, PE, cardiopulmonary complications and . The patient expressed a thorough understanding of the risks and benefits of surgery and has elected to proceed. Consent was signed. Surgeon: Callie Elias Click Yes if Unassisted: Yes Anesthesia Type: General and Local Operative Notes Findings: Gross purulence abscess and infectious flexor tenosynovitis left small finger-cultures were sent, no foreign body was found. Gross purulence dorsal abscess left index finger Wounds were irrigated thoroughly including the flexor tendon sheath of the 5th finger. Packing was placed. One loose suture was placed in each incision for the 5th finger Closure Type: non-primary Specimen(s): other (Culture swabs for microbiology) Estimated Blood Loss (mL): 10 Tourniquet time (min): 20 Procedure in detail: Patient was brought directly from the floor to the operating room after he was found to be COVID positive on preop testing Appropriate COVID positive patient precautions were taken. Patient was brought into the operating room where surgical consent and site markings were confirmed. Of note the patient's mental status was obtunded and markedly different from just 1/2 an hour before when he was seen on the floor. Last hospital administered narcotics were close to an hour prior. There was a visitor present in the patient's room just prior to bringing him down to the operating room. There was concern for in-hospital on authorized use of narcotics-the hospital floor was notified. The patient was positioned all bony prominences were well padded. A hand table was placed on the left side. A brachial tourniquet was placed. SCDs were on the lower extremities. Once the patient was prepped induction was completed. The patient was prepped and draped in the standard sterile fashion. Formal time-out was performed confirming the patient's side and site of surgery. Patient was on scheduled antibiotics from the floor. All were in agreement. Attention was turned to the left arm gravity exsanguination was utilized and the brachial tourniquet elevated to 250 mmHg. Incisions were marked out on the left hand. The pointed puncture wound on the volar surface of the proximal phalanx of the 5th digit was marked out and diagonal half of a Abiel limb incision fashion. This was made directly through the skin and there was immediate expression of purulence. Cultures were taken. This did go all the way down to the flexor tendon sheath which was violated and additionally was spreading subcutaneously on the volar digit. Therefore a counter incision over the A1 betty was made and the flexor tendon sheath entered. Copious irrigation was utilized and a Angiocath was administered into the flexor tendon she is due for through sheath irrigation. Flexor tendons were inspected and intact. After copious irrigation was completed the proximal and distal wounds were packed with 1 quarter-inch packing gauze and 1 loose suture was placed in each wound in order to keep them relatively open for easy drainage. Attention was then turned to the left index finger where there was a separate pointed abscess over the dorsum of the middle phalanx just proximal to the D IP joint. Longitudinal incision was made directly over the area of prominence and again purulence was immediately encountered. This was a small abscess with no apparent proximal tracking. The abscess was debrided and irrigated and again packed with quarter-inch packing. No sutures were used. Prior to placing the packing and dressing the tourniquet was released. Hemostasis was achieved. The digits pinked up well. Local anesthetic was administered. The wounds were dressed with Xeroform gauze Kerlix. Drapes were removed. The surgeon and scrub left the room and anesthesia was terminated and the patient was recovered in the OR as part of the [facility] COVID-19 positive protocol. Complications: none Post-operative Condition: stable Disposition: Acute Care Plan for aftercare: Patient will return to the floor after he has been recovered in the operating room. He will start b.i.d. warm soapy soaks and packing changes to his left hand postop day 1. He should soak for about 15 minutes in warm soapy water and then the packing should be replaced just a small wick in each wound to keep them open. He will have cultures pending. Antibiotics can be tailored to these as available. With the purulence the intraoperative appearance likely a staph. There was concern for narcotic use. Recommend close observation and the patient will require COVID 19 positive precautions.
--- NOTE | 2021-03-07 19:45 | SUR.PHASEI ---
PACU nurse recovering patient in OR [address] number 4 due to COVID positive status of patient. Report received from Anesthesia and OR nursing staff. VSS. Dressing to left hand clean, dry and intact with strong radial pulse palpated.
--- NOTE | 2021-03-07 19:53 | SUR.PHASEI ---
Patient arousable to verbal stimuli and taking ice chips without difficulty.
[2021-03-08 00:15] VITALS: BP 120/71; PULSE 78; RESP 14; TEMP 36.8; O2SAT 96
[2021-03-08] MEDS: VANCOMYCIN TROUGH 1 REQUEST MISC (01:10)
[2021-03-08] MEDS: VANCOMYCIN 1,250 MG/250 ML PIGGYBACK 200 MG IV ×4 (01:11→23:25)
[2021-03-08 01:15] VITALS: BP 124/73; PULSE 76; RESP 16; TEMP 37.1; O2SAT 96
[2021-03-08] MEDS: VANCOMYCIN PEAK 1 REQUEST MISC (03:25)
[2021-03-08] MEDS: KETOROLAC 30 MG/ML VIAL IV ×4 (03:38→23:25)
[2021-03-08 03:41] LABS: Vancomycin Peak 25.1 ug/mL (20-40)
[2021-03-08 03:52] LABS: Acinetobacter baumannii Not Detected (Not Detect); Candida albicans Not Detected (Not Detect); Candida glabrata Not Detected (Not Detect); Candida krusei Not Detected (Not Detect); Candida parapsilosis Not Detected (Not Detect); Candida tropicalis Not Detected (Not Detect); E. coli Not Detected (Not Detect); Enterobacter cloacae complex Not Detected (Not Detect); Enterobacteriaceae species Not Detected (Not Detect); Enterococcus species Not Detected (Not Detect); Haemophilus influenzae Not Detected (Not Detect); Listeria monocytogenes Not Detected (Not Detect); Neisseria meningitidis Not Detected (Not Detect); Proteus species Not Detected (Not Detect); Pseudomonas aeruginosa Not Detected (Not Detect); Serratia marcescens Not Detected (Not Detect); Staphylococcus species Not Detected (Not Detect); Streptococcus agalactiae (Gr B Not Detected (Not Detect); Streptococcus pneumonia Not Detected (Not Detect); Streptococcus pyogenes (Gr A) Not Detected (Not Detect); Streptococcus species Not Detected (Not Detect)
--- NOTE | 2021-03-08 03:56 | PC.NURSE ---
Addendum entered by Jossy Nice R.N. 03/08/21 05:49: 0530: Spoke with pt's mother, Penelope Tran, and gave post-op updates. She is concerned about what will happen when he leaves the hospital because she states pt is homeless and will have difficulty with transportation to any follow up appointments and cannot afford to pay for medications or necessary supplies for wound care. Will notify oncoming nurse at shift change and relay to social work/case management so that a safe and effective plan for discharge can be made. Addendum entered by Jossy Nice R.N. 03/08/21 03:58: 0355: Call received from lab, pt has positive blood culture in one bottle, which shows gram positive cocci in clusters. Will notify MD per protocol. Original Note: 2014: Pt returned from OR for I&D of left hand. Pt A&O,3, complains of pain in left hand, denies other complaints. Dressing intact to left hand, pulses adequate, cap refill <2 seconds.
[2021-03-08 06:53] LABS: Add Manual Diff / Slide Review NO; Basophils Absolute Auto 100 /uL (0-100); Eosinophils Absolute Auto 400 /uL (0-450); Eosinophils Percent Auto 3.7 % (2-4); Hematocrit 38.8 % (41-53); Hemoglobin 13.3 g/dL (13.5-17.5); Lymphocytes Absolute Auto 1900 /uL (1100-4500); Lymphocytes Percent Auto 19.3 % (25-40); Mean Corpuscular HGB Conc 34.3 % (30-36); Mean Corpuscular Hemoglobin 31.1 PG (26-34); Mean Corpuscular Volume 90.7 fL (80-100); Monocytes Absolute Auto 900 /uL (0-900); Monocytes Percent Auto 9.1 % (3-14); Neutrophils Absolute Auto 6600 /uL (1500-7000); Neutrophils Percent Auto 66.9 % (50-75); Platelet Count 248 X10^3/uL (150-400); Red Blood Cell Count 4.28 X10^6/uL (4.5-5.9); Red Cell Distribution Width 12.7 % (11.6-14.8); White Blood Cell Count 9.8 X10^3/uL (4.5-11.0)
[2021-03-08 07:05] LABS: Blood Urea Nitrogen 20 mg/dL (9-20); Calcium 8.8 mg/dL (8.4-10.2); Carbon Dioxide 31 mmol/L (22-32); Chloride 101 mmol/L (98-107); Estimated Glomerular Filt Rate > 60.0 mL/min (>60); Glucose 122 mg/dL (70-100); HEMOLYSIS < 15 (0-50); Potassium 3.9 mmol/L (3.4-5.1); Sodium 135 mmol/L (137-145)
[2021-03-08 08:00] VITALS: BP 133/74; PULSE 78; RESP 17; TEMP 37.3; O2SAT 98
--- NOTE | 2021-03-08 08:05 | PM.PN.1 ---
Subjective Subjective Date Patient Seen: 03/08/21 Interval history: He is seen in his room today to follow-up the left hand cellulitis, bilateral hand swelling and history of polysubstance use. He is also now diagnosed with asymptomatic COVID. My visit with him today was a visualization through the glass door to his room. He appeared to be comfortable. A dressing was observed on the left hand consistent with his recent surgical procedure. Exam Vital Signs (past 8 hours): - 03/08/21 00:15 03/08/21 01:15 Temperature 98.2 F 98.8 F Pulse Rate 78 76 Respiratory Rate 14 16 Blood Pressure 120/71 124/73 Pulse Oximetry 96 96 Oxygen Delivery Method Room Air Oxygen Flow Rate 0 Narrative Exam Narrative: He is alert, resting in bed, not experiencing any evidence of COVID pneumonia symptoms. Both hands appear less swollen The left hand is covered in an appropriate clean dressing related to his recent surgery. Objective Labs Result Diagrams: 03/08/21 05:25 03/08/21 05:25 Labs: Laboratory Results - last 24 hr 03/07/21 03/07/21 03/07/21 00:55 17:20 23:55 WBC RBC Hgb Hct MCV MCH MCHC RDW Plt Count Neut % (Auto) Lymph % (Auto) [place] % (Auto) Eos % (Auto) Baso % (Auto) Neut # (Auto) Lymph # (Auto) [place] # (Auto) Eos # (Auto) Baso # (Auto) Sodium Potassium Chloride Carbon Dioxide BUN Creatinine Estimated GFR BUN/Creatinine Ratio Glucose Calcium C-Reactive Protein Vancomycin Peak Vancomycin Trough 13.0 A. baumannii (PCR) Not detected Amira albicans (PCR) Not detected C. glabrata (PCR) Not detected C. krusei (PCR) Not detected C. parapsilosis (PCR) Not detected C. tropicalis (PCR) Not detected SARS-CoV-2 (PCR) Positive H Enterobacteriac sp PCR Not detected E. cloacae complex PCR Not detected Enterococcus sp PCR Not detected E. coli (PCR) Not detected H. influenzae (PCR) Not detected Klebsiella oxytoca PCR Not detected Klebsiella pneumoniae Not detected List. monocytogenes PCR Not detected N. meningitidis (PCR) Not detected Proteus species (PCR) Not detected Serratia marcescens PCR Not detected Staphylococcus sp PCR Not detected Staph aureus (PCR) Not detected mecA-Methicil Res Gene Not Reportable Streptococcus sp PCR Not detected Group A Strep (PCR) Not detected Strep agalactiae (PCR) Not detected Strep pneumoniae (PCR) Not detected P. aeruginosa (PCR) Not detected Cris/B-Vanco Res Genes Not Reportable KPC-Carbap Res Gene PCR Not Reportable 03/08/21 03/08/21 03/08/21 03:15 05:25 05:25 WBC 9.8 RBC 4.28 L Hgb 13.3 L Hct 38.8 L MCV 90.7 MCH 31.1 MCHC 34.3 RDW 12.7 Plt Count 248 Neut % (Auto) 66.9 Lymph % (Auto) 19.3 L [place] % (Auto) 9.1 Eos % (Auto) 3.7 Baso % (Auto) 1.0 Neut # (Auto) 6600 Lymph # (Auto) 1900 [place] # (Auto) 900 Eos # (Auto) 400 Baso # (Auto) 100 Sodium 135 L Potassium 3.9 Chloride 101 Carbon Dioxide 31 BUN 20 Creatinine 1.05 Estimated GFR > 60.0 BUN/Creatinine Ratio 19.0 Glucose 122 H Calcium 8.8 C-Reactive Protein Vancomycin Peak 25.1 Vancomycin Trough A. baumannii (PCR) Amira albicans (PCR) C. glabrata (PCR) C. krusei (PCR) C. parapsilosis (PCR) C. tropicalis (PCR) SARS-CoV-2 (PCR) Enterobacteriac sp PCR E. cloacae complex PCR Enterococcus sp PCR E. coli (PCR) H. influenzae (PCR) Klebsiella oxytoca PCR Klebsiella pneumoniae List. monocytogenes PCR N. meningitidis (PCR) Proteus species (PCR) Serratia marcescens PCR Staphylococcus sp PCR Staph aureus (PCR) mecA-Methicil Res Gene Streptococcus sp PCR Group A Strep (PCR) Strep agalactiae (PCR) Strep pneumoniae (PCR) P. aeruginosa (PCR) Cris/B-Vanco Res Genes KPC-Carbap Res Gene PCR 03/08/21 05:25 WBC RBC Hgb Hct MCV MCH MCHC RDW Plt Count Neut % (Auto) Lymph % (Auto) [place] % (Auto) Eos % (Auto) Baso % (Auto) Neut # (Auto) Lymph # (Auto) [place] # (Auto) Eos # (Auto) Baso # (Auto) Sodium Potassium Chloride Carbon Dioxide BUN Creatinine Estimated GFR BUN/Creatinine Ratio Glucose Calcium C-Reactive Protein 6.0 H Vancomycin Peak Vancomycin Trough A. baumannii (PCR) Amira albicans (PCR) C. glabrata (PCR) C. krusei (PCR) C. parapsilosis (PCR) C. tropicalis (PCR) SARS-CoV-2 (PCR) Enterobacteriac sp PCR E. cloacae complex PCR Enterococcus sp PCR E. coli (PCR) H. influenzae (PCR) Klebsiella oxytoca PCR Klebsiella pneumoniae List. monocytogenes PCR N. meningitidis (PCR) Proteus species (PCR) Serratia marcescens PCR Staphylococcus sp PCR Staph aureus (PCR) mecA-Methicil Res Gene Streptococcus sp PCR Group A Strep (PCR) Strep agalactiae (PCR) Strep pneumoniae (PCR) P. aeruginosa (PCR) Cris/B-Vanco Res Genes KPC-Carbap Res Gene PCR PFSH Medical History (Updated 03/07/21 @ 17:53 by Callie Elias MD) No pertinent past medical history Patient denies medical problems Surgical History (Updated 03/07/21 @ 06:23 by Alan Basilio MD) No significant past surgical history Family History (Updated 03/07/21 @ 06:24 by Alan Basilio MD) Mother No active medical problems Social History household members: significant other Smoking Status: Current every day smoker alcohol intake: never substance use type: heroin, IV drugs and methamphetamine (per hospital provider notes) Assessment & Plan Assessment & Plan narrative: This is a 40-year-old previously healthy male with recent onset of bilateral hand pain and swelling who now presents with acute pain/swelling in the left hand after a ?bite? 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 Left hand cellulitis, present on admission.? Active.? -worsened despite 4-5 days of oral doxycycline.? -CRP elevated at 3.6 with ESR of 10 and white blood count of 11 on admission. -CRP continues to climb, from 3.0-4.6 and now 6.0. -continue vancomycin and ceftriaxone IV: Wound culture growing Gram-positive cocci in clusters -now status post orthopedic hand incision and drainage, left 5th finger dorsum, 03/07/2021. Bilateral hand swelling, present on admission.? Active.? -repeat CRP is rising, now 6.0. Growth hormone level is pending -rule out rheumatologic disorder No Lovenox indicated so far as patient is mobile in the room without expected prolonged immobilization. Time Spent With Patient Critical Care time: I spent a total of [] minutes of critical care time on this patient's care today; this time is exclusive of procedural time. Quality VTE Deep Vein Thrombosis/Pulmonary Embolism Present on Admission: No
--- NOTE | 2021-03-08 10:09 | PM.PNPO.1 ---
Subjective Subjective Date Patient Seen: 03/08/21 Time Patient Seen: 10:10 Interval history: Pt lying in bed, follows commands and mumbles answers to questions. Dr Elias took him for I&D of left small finger d/t flexor tenosynovitis and I&D of left index finger d/t abscess. Exam Vital Signs (past 8 hours): - 03/08/21 08:00 Temperature 99.2 F Pulse Rate 78 Respiratory Rate 17 Blood Pressure 133/74 Pulse Oximetry 98 Oxygen Delivery Method Room Air Oxygen Flow Rate 0 Narrative Exam Narrative: Moves all fingers. Sensation to light touch intact to fingertips. Brisk capillary refill all fingers. Dressing CDI. Const General: comfortable Objective Labs Result Diagrams: 03/08/21 05:25 03/08/21 05:25 Labs: Laboratory Results - last 24 hr 03/07/21 03/07/21 03/07/21 00:55 17:20 23:55 WBC RBC Hgb Hct MCV MCH MCHC RDW Plt Count Neut % (Auto) Lymph % (Auto) [place] % (Auto) Eos % (Auto) Baso % (Auto) Neut # (Auto) Lymph # (Auto) [place] # (Auto) Eos # (Auto) Baso # (Auto) Sodium Potassium Chloride Carbon Dioxide BUN Creatinine Estimated GFR BUN/Creatinine Ratio Glucose Calcium C-Reactive Protein Vancomycin Peak Vancomycin Trough 13.0 A. baumannii (PCR) Not detected Amira albicans (PCR) Not detected C. glabrata (PCR) Not detected C. krusei (PCR) Not detected C. parapsilosis (PCR) Not detected C. tropicalis (PCR) Not detected SARS-CoV-2 (PCR) Positive H Enterobacteriac sp PCR Not detected E. cloacae complex PCR Not detected Enterococcus sp PCR Not detected E. coli (PCR) Not detected H. influenzae (PCR) Not detected Klebsiella oxytoca PCR Not detected Klebsiella pneumoniae Not detected List. monocytogenes PCR Not detected N. meningitidis (PCR) Not detected Proteus species (PCR) Not detected Serratia marcescens PCR Not detected Staphylococcus sp PCR Not detected Staph aureus (PCR) Not detected mecA-Methicil Res Gene Not Reportable Streptococcus sp PCR Not detected Group A Strep (PCR) Not detected Strep agalactiae (PCR) Not detected Strep pneumoniae (PCR) Not detected P. aeruginosa (PCR) Not detected Cris/B-Vanco Res Genes Not Reportable KPC-Carbap Res Gene PCR Not Reportable 03/08/21 03/08/21 03/08/21 03:15 05:25 05:25 WBC 9.8 RBC 4.28 L Hgb 13.3 L Hct 38.8 L MCV 90.7 MCH 31.1 MCHC 34.3 RDW 12.7 Plt Count 248 Neut % (Auto) 66.9 Lymph % (Auto) 19.3 L [place] % (Auto) 9.1 Eos % (Auto) 3.7 Baso % (Auto) 1.0 Neut # (Auto) 6600 Lymph # (Auto) 1900 [place] # (Auto) 900 Eos # (Auto) 400 Baso # (Auto) 100 Sodium 135 L Potassium 3.9 Chloride 101 Carbon Dioxide 31 BUN 20 Creatinine 1.05 Estimated GFR > 60.0 BUN/Creatinine Ratio 19.0 Glucose 122 H Calcium 8.8 C-Reactive Protein Vancomycin Peak 25.1 Vancomycin Trough A. baumannii (PCR) Amira albicans (PCR) C. glabrata (PCR) C. krusei (PCR) C. parapsilosis (PCR) C. tropicalis (PCR) SARS-CoV-2 (PCR) Enterobacteriac sp PCR E. cloacae complex PCR Enterococcus sp PCR E. coli (PCR) H. influenzae (PCR) Klebsiella oxytoca PCR Klebsiella pneumoniae List. monocytogenes PCR N. meningitidis (PCR) Proteus species (PCR) Serratia marcescens PCR Staphylococcus sp PCR Staph aureus (PCR) mecA-Methicil Res Gene Streptococcus sp PCR Group A Strep (PCR) Strep agalactiae (PCR) Strep pneumoniae (PCR) P. aeruginosa (PCR) Cris/B-Vanco Res Genes KPC-Carbap Res Gene PCR 03/08/21 05:25 WBC RBC Hgb Hct MCV MCH MCHC RDW Plt Count Neut % (Auto) Lymph % (Auto) [place] % (Auto) Eos % (Auto) Baso % (Auto) Neut # (Auto) Lymph # (Auto) [place] # (Auto) Eos # (Auto) Baso # (Auto) Sodium Potassium Chloride Carbon Dioxide BUN Creatinine Estimated GFR BUN/Creatinine Ratio Glucose Calcium C-Reactive Protein 6.0 H Vancomycin Peak Vancomycin Trough A. baumannii (PCR) Amira albicans (PCR) C. glabrata (PCR) C. krusei (PCR) C. parapsilosis (PCR) C. tropicalis (PCR) SARS-CoV-2 (PCR) Enterobacteriac sp PCR E. cloacae complex PCR Enterococcus sp PCR E. coli (PCR) H. influenzae (PCR) Klebsiella oxytoca PCR Klebsiella pneumoniae List. monocytogenes PCR N. meningitidis (PCR) Proteus species (PCR) Serratia marcescens PCR Staphylococcus sp PCR Staph aureus (PCR) mecA-Methicil Res Gene Streptococcus sp PCR Group A Strep (PCR) Strep agalactiae (PCR) Strep pneumoniae (PCR) P. aeruginosa (PCR) Cris/B-Vanco Res Genes KPC-Carbap Res Gene PCR PFSH Medical History (Updated 03/07/21 @ 17:53 by Callie Elias MD) No pertinent past medical history Patient denies medical problems Surgical History (Updated 03/07/21 @ 06:23 by Alan Basilio MD) No significant past surgical history Family History (Updated 03/07/21 @ 06:24 by Alan Basilio MD) Mother No active medical problems Social History household members: significant other Smoking Status: Current every day smoker alcohol intake: never substance use type: heroin, IV drugs and methamphetamine (per hospital provider notes) Assessment & Plan Post-op Postoperative Procedures: Procedures Operation Date: 03/07/21 18:00 Actual Procedure Side Surgeon p Incision and Debridement left hand infection, 2nd and 5th fingers Left Callie Elias MD Postoperative day: 1 Postoperative plan narrative: He will start b.i.d. warm soapy soaks and packing changes to his left hand today. He should soak for about 15 minutes in warm soapy water and then the packing should be replaced just a small wick in each wound to keep them open. Final antibiotic treatment pending culture and sensitivity. Quality VTE Deep Vein Thrombosis/Pulmonary Embolism Present on Admission: No
[2021-03-08] MEDS: HYDROMORPHONE 2 MG INJ 1 MG IV (10:52)
[2021-03-08 11:39] VITALS: BP 129/66; PULSE 78; RESP 14; TEMP 37.3; O2SAT 98
[2021-03-08 16:00] VITALS: BP 97/55; PULSE 77; RESP 17; TEMP 37.3; O2SAT 98
[2021-03-08] MEDS: HYDROMORPHONE 1 MG INJ IV ×2 (17:21→23:25)
[2021-03-08 18:36] LABS: Growth Hormone 0.1 ng/mL (0.0-10.0)
[2021-03-08 19:50] VITALS: BP 122/65; PULSE 62; RESP 18; TEMP 36.9; O2SAT 96
[2021-03-08] MEDS: cefTRIAXone 1,000 MG in SODIUM CHLORIDE 0.9% 100 ML 200 ML IV (22:06)
[2021-03-09 03:56] VITALS: BP 124/68; PULSE 63; RESP 18; TEMP 36.7; O2SAT 97
[2021-03-09 05:36] LABS: C-Reactive Protein Quant 4.9 mg/dL (<1.0)
[2021-03-09] MEDS: HYDROMORPHONE 1 MG INJ IV ×3 (06:49→18:31)
[2021-03-09] MEDS: KETOROLAC 30 MG/ML VIAL IV ×3 (06:49→18:31)
[2021-03-09] MEDS: VANCOMYCIN 1,250 MG/250 ML PIGGYBACK 200 MG IV ×2 (06:49→17:44)
[2021-03-09 08:58] VITALS: BP 127/68; PULSE 63; RESP 15; TEMP 36.2; O2SAT 97
--- NOTE | 2021-03-09 09:19 | DI.ECHO.S_ITS ---
[facility] +---------+ Hospital +---------+ : : [address] : : : : [id number] : : : : Phone: [phone]+ Echocardiogram Report + + :Name: MARÍA FLOWERS Study Date: 03/10/2021 Height: 69 in : :[facility] ReadingLocation: Weight: 195 lb : : Gender: Male BSA: 2.0 m2 : :: 1980 Age: 41 yrs BP: 127/68 mmHg: :Reason For Study: ENDOCARDITIS : :Ordering Physician: JAJA, : :SHANIQUA Performed By: Ashley Hua : :Referring: SHANIQUA WILKINSON : + + Interpretation Summary Normal sinus rhythm. Normal LV size, wall thickness, wall motion and LV systolic function. EF is 60-65%. No valvular abnormalities. No evidence of endocarditis. No prior study available for comparison. Procedure: A two-dimensional transthoracic echocardiogram with color flow and Doppler was performed. The study quality was technically adequate. There is no prior echocardiogram noted for this patient. The patient was in sinus rhythm with heart rates between 64-77 bpm during the exam. Left Ventricle: The left ventricle is normal in size and wall thickness. The ejection fraction is estimated to be 60-65%. Right Ventricle: The right ventricle is normal in size and function. Atria: The left atrial size is normal. Right atrial size is normal. There is no Doppler evidence for an interatrial shunt. Mitral Valve: The mitral valve is normal in structure and function. There is no mitral regurgitation noted. Aortic Valve: The aortic valve is trileaflet. The aortic valve opens well. There is no aortic valve stenosis. No aortic regurgitation is present. Tricuspid Valve: The tricuspid valve is normal in structure and function. There is trace tricuspid regurgitation. Pulmonary artery pressures cannot be estimated because of the lack of a measurable TR jet velocity but the IVC suggests a CVP of around 3 mmHg. Pulmonic Valve: The pulmonic valve leaflets are thin and pliable; valve motion is normal. There is no pulmonic valvular regurgitation. Great Vessels: The aortic root is normal size. The dimensions of the ascending aorta are normal. The IVC is of normal diameter and collapses greater than 50% with a sniff. This suggests a low right atrial pressure of 3 mm Hg. Pericardium/ Pleura There is no pericardial effusion. There is no pleural effusion. MMode/2D Measurements & Calculations LVIDd: 5.5 cm LVOT diam: 2.0 cm LVIDs: 3.6 cm Ao root diam: 2.7 cm FS: 34.8 % asc Aorta Diam: 3.0 cm IVSd: 0.77 cm Ao Arch Diam (Prox Trans): 2.6 cm LVPWd: 0.77 cm LV rosas. diameter/BSA (cm/m^2): 2.7 LV sys. diameter/BSA (cm/m^2): 1.7 LA A2 area: 18.3 cm2 RA long axis: 4.4 cm LA A4 area: 14.8 cm2 RA area: 12.6 cm2 LA length (vol): 4.6 cm RA vol: 30.9 ml LA vol: 49.6 ml RA : 15.1 ml/m2 LA vol index: 24.3 ml/m2 IVC diam: 1.6 cm RVD1 (basal): 3.6 cm RVD2 (mid): 3.3 cm TAPSE: 2.5 cm Doppler Measurements & Calculations Ao V2 max: 146.0 cm/sec LVOT Max Km: 114.4 cm/sec Ao V2 mean: 99.8 cm/sec LV V1 max P.2 mmHg Ao max P.5 mmHg LV V1 VTI: 21.1 cm Ao mean P.6 mmHg SHAUNNA(I,D): 2.3 cm2 Ao V2 VTI: 28.1 cm SHAUNNA(V,D): 2.4 cm2 sev ratio: 0.75 SHAUNNA indexed to BSA (cm^2/m^2): 1.1 MV E max km: 87.2 cm/sec PA V2 max: 105.7 cm/sec MV A max km: 46.3 cm/sec PA V2 mean: 72.0 cm/sec MV E/A: 1.9 PA mean P.4 mmHg Med Peak E' Km: 13.3 cm/sec PA pr(Accel): 24.2 mmHg E/E' med: 6.5 Lat Peak E' Km: 15.6 cm/sec E/E' lat: 5.6 E/e' average: 6.1 MV dec time: 0.30 sec SV([facility]): 64.6 ml Electronically signed by: Vicki Gonzalez M.D. on Reading Physician:03/10/2021 05:26 PM
[2021-03-09] MEDS: DOCUSATE 100 MG CAPSULE PO ×2 (09:24→21:48)
--- NOTE | 2021-03-09 10:18 | PM.PNPO.1 ---
Subjective Subjective Date Patient Seen: 03/09/21 Time Patient Seen: 10:22 Interval history: Continues to be sleepy but easy to arouse, cooperative, responds appropriately to questions and commands. Exam Vital Signs (past 8 hours): - 03/09/21 03:56 03/09/21 08:58 Temperature 98.1 F 97.1 F L Pulse Rate 63 63 Respiratory Rate 18 15 Blood Pressure 124/68 127/68 Pulse Oximetry 97 97 Oxygen Delivery Method Room Air Oxygen Flow Rate 0 Narrative Exam Narrative: Hand culture grew MRSA, he has blood cultures pending. Currently continues on IV ceftriaxone and vancomycin. More responsive today than he has been since I've seen him since admission. Significant pain with palpation of left small finger, no pain around the rest of digits or hand. Swelling decreased throughout hand, but remains hesitant with flexion and extension. Sensation to touch intact throughout. Post-op dressing with minimal blood at small finger, otherwise clean. Wound soaking was not started yesterday, should start today. Objective Labs Result Diagrams: 03/08/21 05:25 03/08/21 05:25 Labs: Laboratory Results - last 24 hr 03/07/21 03/09/21 07:11 05:08 C-Reactive Protein 4.9 H Growth Hormone (ICMA) 0.1 PFSH Medical History (Updated 03/07/21 @ 17:53 by Callie Elias MD) No pertinent past medical history Patient denies medical problems Surgical History (Updated 03/07/21 @ 06:23 by Alan Basilio MD) No significant past surgical history Family History (Updated 03/07/21 @ 06:24 by Alan Basilio MD) Mother No active medical problems Social History household members: significant other Smoking Status: Current every day smoker alcohol intake: never substance use type: heroin, IV drugs and methamphetamine (per hospital provider notes) Assessment & Plan Post-op Postoperative Procedures: Procedures Operation Date: 03/07/21 18:00 Actual Procedure Side Surgeon p Incision and Debridement left hand infection, 2nd and 5th fingers Left Callie Elias MD Postoperative day: 2 Postoperative status narrative: Recovery as expected following I&D of small and index finger abscesses on left hand. Postoperative plan narrative: He will start b.i.d. warm soapy soaks and packing changes to his left hand today. He should soak for about 15 minutes in warm soapy water and then the packing should be replaced just a small wick in each wound to keep them open. Antibiotic treatment per hospitalist. Quality VTE Deep Vein Thrombosis/Pulmonary Embolism Present on Admission: No
[2021-03-09 12:20] VITALS: BP 109/67; PULSE 68; RESP 17; TEMP 36.2; O2SAT 98
--- NOTE | 2021-03-09 13:29 | PM.PN.1 ---
Subjective Subjective Date Patient Seen: 03/09/21 Time Patient Seen: 08:00 Interval history: Today he continues to have hand swelling. His little finger is quite tender. Exam Vital Signs (past 8 hours): - 03/09/21 08:58 Temperature 97.1 F L Pulse Rate 63 Respiratory Rate 15 Blood Pressure 127/68 Pulse Oximetry 97 Oxygen Delivery Method Room Air Oxygen Flow Rate 0 Narrative Exam Narrative: GEN: no acute distress PULM: clear bilaterally EXT: L hand bandaged, left fifth finger very tender to touch and swollen Objective Labs Result Diagrams: 03/08/21 05:25 03/08/21 05:25 Labs: Laboratory Results - last 24 hr 03/07/21 03/09/21 07:11 05:08 C-Reactive Protein 4.9 H Growth Hormone (ICMA) 0.1 PFSH Medical History (Updated 03/07/21 @ 17:53 by Callie Elias MD) No pertinent past medical history Patient denies medical problems Surgical History (Updated 03/07/21 @ 06:23 by Alan Basilio MD) No significant past surgical history Family History (Updated 03/07/21 @ 06:24 by Alan Basilio MD) Mother No active medical problems Social History household members: significant other Smoking Status: Current every day smoker alcohol intake: never substance use type: heroin, IV drugs and methamphetamine (per hospital provider notes) Assessment & Plan Assessment & Plan narrative: This is a 40-year-old previously healthy male with recent onset of bilateral hand pain and swelling who now presents with acute pain/swelling in the left hand after a ?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 Left hand cellulitis, present on admission.? Active.? -worsened despite 4-5 days of oral doxycycline.? -CRP elevated at 3.6 with ESR of 10 and white blood count of 11 on admission.? -CRP continues to climb, from 3.0-4.6 and now 6.0. -continue vancomycin, stop ceftriaxone -now status post orthopedic hand incision and drainage, left 5th finger dorsum, 03/07/2021. -cultures growing back MRSA, will need minimum two weeks IV antibiotics with vanco or dapto -repeat blood cultures, order echo to rule out endocarditis Bilateral hand swelling, present on admission.? Active.? -repeat CRP is rising, now 6.0.? Growth hormone level is pending -rule out rheumatologic disorder COVID positive -no symptoms noted -no treatment indicated currently -monitor respiratory status Time Spent With Patient Critical Care time: I spent a total of [] minutes of critical care time on this patient's care today; this time is exclusive of procedural time. Quality VTE Deep Vein Thrombosis/Pulmonary Embolism Present on Admission: No
--- NOTE | 2021-03-09 15:25 | CM.DPC ---
DCP Continued: CM spoke with Dr. Schaefer this afternoon and was told that the patient has a MRSA infection and will need two weeks of IV abx. patient is an active drug user so DC planning for IV abx at home will be challenging. CM attempted to meet with the patient but he was sleeping and not waking up to CM. CM called patients mother and left her a VM to discuss DC planning. CM Called and LVM with [facility] to see if they will review the patients information for possible admission to there SNF but the patient does not have any insurance so this is a shot in the dark if the patient cannot pay for SNF placement. Patient was given Medicaid application at admission. CM department will continue to follow to help work on safe DC plan for this patient. Sophie Da Silva RNdye box operator
--- NOTE | 2021-03-09 18:26 | PC.NURSE ---
Day Shift Note Patient A&O, VSS, RA. Dressing change done at 1200 after premedication with IV Dilaudid/Toradol. Wounds soaked for 15min, able to removed packing with some resistant. Patient in severe pain, tearful and refused repacking of wounds. Hand with 3 plus edema, red, serosanguineous drainage, incision wounds tight. Patient agreeable to packing on next dressing change with premedication.
[2021-03-09 22:15] VITALS: BP 120/67; PULSE 71; RESP 14; TEMP 36.4; O2SAT 97
[2021-03-10] MEDS: KETOROLAC 30 MG/ML VIAL IV ×3 (01:47→13:13)
[2021-03-10] MEDS: VANCOMYCIN 1,250 MG/250 ML PIGGYBACK 200 MG IV ×3 (01:47→17:41)
[2021-03-10] MEDS: HYDROMORPHONE 1 MG INJ IV ×4 (01:48→20:17)
[2021-03-10 02:00] VITALS: BP 126/72; PULSE 64; RESP 14; TEMP 37.3; O2SAT 100
--- NOTE | 2021-03-10 02:56 | PC.NURSE ---
Vaco was retimed d/t late start on 1500 dose. Dressing change completed at 0200 after premedicating with IV Dilaudid/Toradol and clustering care with next dose of Vanco. Wounds soaked for 15min, Dressing came off easily after soaking, hand has 3+ edema, appears red, with dry skin throughout hand. The incision wounds are very tight and patient refused to allow this RN to attempt packing. Wound on pinkey has scant amounts of serosanguineous drainage while other wounds do not appear to have any drainage. Gauze was placed between the fingers as patient stated that it feels better to have some space between his fingers for the separation.
[2021-03-10 05:09] LABS: Hematocrit 38.5 % (41-53); Hemoglobin 13.2 g/dL (13.5-17.5); Mean Corpuscular HGB Conc 34.2 % (30-36); Mean Corpuscular Hemoglobin 30.6 PG (26-34); Mean Corpuscular Volume 89.5 fL (80-100); Platelet Count 238 X10^3/uL (150-400); Red Blood Cell Count 4.31 X10^6/uL (4.5-5.9); Red Cell Distribution Width 12.7 % (11.6-14.8); White Blood Cell Count 6.2 X10^3/uL (4.5-11.0)
[2021-03-10 05:16] LABS: BUN Creatinine Ratio 18.8 (6-22); Blood Urea Nitrogen 18 mg/dL (9-20); Calcium 8.6 mg/dL (8.4-10.2); Carbon Dioxide 30 mmol/L (22-32); Chloride 104 mmol/L (98-107); Estimated Glomerular Filt Rate > 60.0 mL/min (>60); Glucose 117 mg/dL (70-100); HEMOLYSIS < 15 (0-50); Potassium 4.2 mmol/L (3.4-5.1); Sodium 136 mmol/L (137-145)
[2021-03-10 08:00] VITALS: BP 102/47; PULSE 66; RESP 14; TEMP 36.7; O2SAT 96
[2021-03-10] MEDS: SODIUM CHLORIDE 0.9% FLUSH 10 ML IV ×2 (08:20→20:17)
[2021-03-10] MEDS: DOCUSATE 100 MG CAPSULE PO ×2 (08:20→20:17)
--- NOTE | 2021-03-10 08:42 | PM.PNPO.1 ---
Subjective Subjective Date Patient Seen: 03/10/21 Time Patient Seen: 08:42 Interval history: Lying in bed, much more awake and responsive than he has been since I have seen him. Asked to evaluate hand by nurse who started soaks yesterday and said patient had increased pain and swelling. However, on exam today both she and patient feel hand looks much better. Exam Vital Signs (past 8 hours): - 03/10/21 02:00 Temperature 99.1 F Pulse Rate 64 Respiratory Rate 14 Blood Pressure 126/72 Pulse Oximetry 100 Oxygen Delivery Method Room Air Oxygen Flow Rate 0 Narrative Exam Narrative: Swelling and erythema throughout hand have decreased. Small finger remains swollen but less so than on admission; pt states tip of this finger is numb but finger is no longer extremely painful to touch. Other digits with intact sensation throughout. Blood culture results still pending, echo ordered. Objective Labs Result Diagrams: 03/10/21 04:51 03/10/21 04:51 Labs: Laboratory Results - last 24 hr 03/10/21 03/10/21 04:51 04:51 WBC 6.2 RBC 4.31 L Hgb 13.2 L Hct 38.5 L MCV 89.5 MCH 30.6 MCHC 34.2 RDW 12.7 Plt Count 238 Sodium 136 L Potassium 4.2 Chloride 104 Carbon Dioxide 30 BUN 18 Creatinine 0.96 Estimated GFR > 60.0 BUN/Creatinine Ratio 18.8 Glucose 117 H Calcium 8.6 PFSH Medical History (Updated 03/07/21 @ 17:53 by Callie Elias MD) No pertinent past medical history Patient denies medical problems Surgical History (Updated 03/07/21 @ 06:23 by Alan Basilio MD) No significant past surgical history Family History (Updated 03/07/21 @ 06:24 by Alan Basilio MD) Mother No active medical problems Social History household members: significant other Smoking Status: Current every day smoker alcohol intake: never substance use type: heroin, IV drugs and methamphetamine (per hospital provider notes) Assessment & Plan Post-op Postoperative Procedures: Procedures Operation Date: 03/07/21 18:00 Actual Procedure Side Surgeon p Incision and Debridement left hand infection, 2nd and 5th fingers Left Callie Elias MD Postoperative day: 3 Postoperative status narrative: Recovery as expected following I&D of small and index finger abscesses on left hand. Postoperative plan narrative: Continue b.i.d. warm soapy soaks and packing changes to his left hand today. He should soak for about 15 minutes in warm soapy water and then the packing should be replaced just a small wick in each wound to keep them open. MRSA wound culture, will need to continue IV vancomycin. Quality VTE Deep Vein Thrombosis/Pulmonary Embolism Present on Admission: No
--- NOTE | 2021-03-10 09:15 | CM.DPC ---
Addendum entered by Patricia Burris R.N. 03/10/21 14:58: Left message with [facility]-u clinic here in [place] to see if they are taking new patients and if they take Gray, and left a message with [facility] on [address]. Addendum entered by Patricia Burris R.N. 03/10/21 14:44: Called some medical provider offices in [place] to see if they take Gray. Attempted the [facility] walk in on [address], and they indicated that they do not take Gray. Called [facility] on [address], and confirmed that they do not take Gray. Called [facility] in [place], and left them a message to see if they take Gray. Attempted [facility] on [address], and was kept on hold. Called [facility], spoke to Elizabeth, and they do take Gray. They are booked out until August. Asked her if nurse practitioner can see patient as long as patient has an upcoming appointment, and she indicated that this would depend upon the practitioner. Berry from [facility] called while this DC production control planner was out and stated that he did receive the referral. Addendum entered by Patricia Burris R.N. 03/10/21 13:24: It is noted that patient now has [place] [employer]/Medicaid. Called Kellie at [facility] to see if they can possibly review patient. Let her know about his insurance. Asked her about the [facility] Program, since patient does not yet have access to a primary care provider. She indicated, she can review, and if he did qualify for the [facility] program, their provider can follow for a couple of weeks, as long as he is set up with a provider. Sent Kellie over the referral, including updated face sheet, H&P,med list. Called [facility] and left Berry a message regarding patient. Went ahead and faxed over same documentation, included current labs. Addendum entered by Patricia Burris R.N. 03/10/21 11:11: Lizette, admission counselor had received permission from patient to contact his mother regarding establishing insurance. She will update this case folder as soon as it is know if patient qualifies for [employer]. Original Note: DCP Cont: It is noted that patient is now COVID positive. Sent an email to the admission counselors asking about status of [employer] application. According to notes, patient's mother had expressed concerns to nursing about discharge, since he has no PCP, and no transportation to go to see providers, as well as not having a primary care provider. Message had been left by KARLENE BarriosP production control planner, for patient's mother to call back. Lizette, admission counselor, responded and indicate that the [employer] application was given when patient was in the ER, and she is processing it. She indicated that if he does not qualify for insurance, then a hailee application would be given. Asked Lizette to update this production control planner on status, in order to move forward with assisting patient in getting provider, and so he can get his medications. The barrier is the need for patient to have two weeks of ABO, secondary to not having insurance, and his drug history. If patient does qualify for Medicaid, is would also be challenging, to locate a Medic[facility] bed, and many swing beds are full. P: DCP to continue to follow and work on discharge plan. Will be able to work on plans once it is known if patient qualifies for insurance. Patricia Burris RN/Dirt Shoveler
[2021-03-10] MEDS: ENOXAPARIN 40 MG/0.4 ML SYRINGE SUBCUT (13:13)
[2021-03-10] MEDS: MAGNESIUM HYDROXIDE 30 ML UDC PO (13:13)
--- NOTE | 2021-03-10 13:16 | PM.PN.1 ---
Subjective Subjective Date Patient Seen: 03/10/21 Time Patient Seen: 08:00 Interval history: He notes today he has quite a bit less pain in his hand. Exam Vital Signs (past 8 hours): - 03/10/21 08:00 Temperature 98.0 F Pulse Rate 66 Respiratory Rate 14 Blood Pressure 102/47 L Pulse Oximetry 96 Oxygen Delivery Method Room Air Oxygen Flow Rate 0 Narrative Exam Narrative: GEN: no acute distress PULM: clear bilaterally EXT: L hand bandaged, left fifth still swollen but improving and no longer very tender to touch Objective Labs Result Diagrams: 03/10/21 04:51 03/10/21 04:51 Labs: Laboratory Results - last 24 hr 03/10/21 03/10/21 04:51 04:51 WBC 6.2 RBC 4.31 L Hgb 13.2 L Hct 38.5 L MCV 89.5 MCH 30.6 MCHC 34.2 RDW 12.7 Plt Count 238 Sodium 136 L Potassium 4.2 Chloride 104 Carbon Dioxide 30 BUN 18 Creatinine 0.96 Estimated GFR > 60.0 BUN/Creatinine Ratio 18.8 Glucose 117 H Calcium 8.6 PFSH Medical History (Updated 03/07/21 @ 17:53 by Callie Elias MD) No pertinent past medical history Patient denies medical problems Surgical History (Updated 03/07/21 @ 06:23 by Alan Basilio MD) No significant past surgical history Family History (Updated 03/07/21 @ 06:24 by Alan Basilio MD) Mother No active medical problems Social History household members: significant other Smoking Status: Current every day smoker alcohol intake: never substance use type: heroin, IV drugs and methamphetamine (per hospital provider notes) Assessment & Plan Assessment & Plan narrative: This is a 40-year-old previously healthy male with recent onset of bilateral hand pain and swelling who now presents with acute pain/swelling in the left hand after a ?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 Left hand cellulitis, present on admission.? Active.? -worsened despite 4-5 days of oral doxycycline.? -CRP elevated at 3.6 with ESR of 10 and white blood count of 11 on admission.? -CRP continues to climb, from 3.0-4.6 and now 6.0. -continue vancomycin, stop ceftriaxone -now status post orthopedic hand incision and drainage, left 5th finger dorsum, 03/07/2021. -cultures growing back MRSA, will need minimum two weeks IV antibiotics with vanco or dapto -repeat blood cultures, order echo to rule out endocarditis Bilateral hand swelling, present on admission.? Active.? -repeat CRP is rising, now 6.0.? Growth hormone level is pending -rule out rheumatologic disorder COVID positive -no symptoms noted -no treatment indicated currently -monitor respiratory status Time Spent With Patient Critical Care time: I spent a total of [] minutes of critical care time on this patient's care today; this time is exclusive of procedural time. Quality VTE Deep Vein Thrombosis/Pulmonary Embolism Present on Admission: No
[2021-03-10 15:22] LABS: Vancomycin Trough 16.8 ug/mL (10-20)
[2021-03-10 16:00] VITALS: BP 122/59; PULSE 62; RESP 20; TEMP 36.8; O2SAT 97
[2021-03-10] MEDS: HYDROCODONE/ACET 5/325 TABLET 2 TAB PO (17:41)
[2021-03-10 19:21] VITALS: O2SAT 97
--- NOTE | 2021-03-10 19:32 | PC.NURSE ---
Evening Shift Note This RN requested PA to assess patients wound due to increase swelling and inability to repack wounds on prior dressing change on 03/09. PA at bedside with this RN, during assessment it was noted that swelling had dramatically decreased from the prior dressing change. This RN unable to repack wounds due to swelling and pain despite premedication. PA aware that this RN unable to pack wounds, per PA RN to continue to soak wounds BID and redress without packing.
[2021-03-10 21:45] LABS: Vancomycin Peak 23.1 ug/mL (20-40)
--- NOTE | 2021-03-10 21:52 | PC.NURSE ---
Unable to repack wounds due to swelling and patient not tolerating pain. Pain medication given per MAR, repack attempted again, and was unsuccessful. Soaking and redressing completed.
[2021-03-11 00:11] VITALS: BP 113/59; PULSE 65; RESP 18; TEMP 36.8; O2SAT 97
[2021-03-11] MEDS: KETOROLAC 30 MG/ML VIAL IV ×3 (00:26→18:17)
[2021-03-11] MEDS: VANCOMYCIN 1,250 MG/250 ML PIGGYBACK 200 MG IV ×3 (01:31→18:16)
--- NOTE | 2021-03-11 02:01 | PC.NURSE ---
Patient yelling out get this f-ing thing out of me, get it out repeatedly. Went into room and patient stated the IV was making him feel awful and like he couldn't get up and breathe. Vancomycin was running at the time. Stopped IV and flushed, half remaining. O2 95%, RR 28, HR 101. HR and RR decreased over two or three minutes as I talked with and calmed patient down. Patient stated they just wanted to be left alone to which I complied. Patient now resting comfortably. Continuing to monitor.
--- NOTE | 2021-03-11 05:16 | PC.NURSE ---
Pt shouting and could be heard from nurses station with door to room closed. Clinical Study Manager entered room and asked pt if he had concerns that needed addressed. Pt was on the telephone speaking with his mother, Penelope Tran. Pt then began shouting at freelance copywriter, saying I am not getting the same meds I got when I came in, I can taste the difference. I am ready to get the fuck out of here because they're not treating me for covid and not giving me the same medications. I want to leave this place. Clinical Study Manager explained to patient that he is not receiving covid treatments because he is asymptomatic. Clinical Study Manager explained that he is being treated for sepsis related to the severe infection in his hand. Clinical Study Manager explained that leaving against medical advice could be potentially life-threatening and that patient needs to continue receiving IV antibiotic therapy for the infection. Clinical Study Manager offered to review the medications he has received during his hospital stay and pt refused. Clinical Study Manager asked if there was anything the pt needed to address his concerns and pt refused. Clinical Study Manager asked if there was anything she could do to make pt feel at ease with his hospital stay and pt said get me out of here. Clinical Study Manager again explained rationale for admission and administration of IV antibiotics. Pt appeared calmer at this point and freelance copywriter exited room. Pt's mother then called and spoke with freelance copywriter, stating that pt is afraid and expresses feelings of fear and anxiety thru angry outbursts. Pt's mother also said he has not been sleeping well and asked that care be clustered during daytime hours so he may rest at night. Pt's mother said pt suffers from emotional lability (mood swings, according to mother) and asked that staff be gentle when dealing with him. She said pt will agree to stay another day in the hospital and asked that staff notify her of any changes during the day today.
[2021-03-11 08:00] VITALS: BP 129/75; PULSE 64; RESP 18; TEMP 37.4; O2SAT 98
--- NOTE | 2021-03-11 09:57 | P.PN_ITS ---
Subjective Subjective Date Patient Seen: 03/11/21 Time Patient Seen: 09:59 Interval history: Patient denies pain. No fever chills. He notes the swelling and redness in the finger has diminished. Otherwise without complaints. Exam Vital Signs (past 8 hours): - 03/11/21 08:00 Temperature 99.4 F Pulse Rate 64 Respiratory Rate 18 Blood Pressure 129/75 Pulse Oximetry 98 Oxygen Delivery Method Room Air Oxygen Flow Rate 0 Narrative Exam Narrative: 41-year-old male resting comfortably in bed in no apparent distress. Left 5th finger is mildly swollen and erythematous over the dorsum. He is nontender to palpation. With gentle flexion and extension of the finger he has no pain. Sensation grossly intact distally. Const General: cooperative Objective Labs Result Diagrams: 03/10/21 04:51 03/10/21 04:51 Labs: Laboratory Results - last 24 hr 03/10/21 03/10/21 14:31 21:10 Vancomycin Peak 23.1 Vancomycin Trough 16.8 ORDERED: WOUND Cx and GS COMMENTS: Comment culture & sensitivity, gram stain Procedure Result Verified Site Gram Stain Final 03/07/21- 2157 No Organism Seen No organisms seen White blood cells Occasional WBC seen Epithelial cells None seen Aerobic Culture for wounds Final 03/09/21- 41 Organism 1 Methicillin Resis Staph Aureus Growth MODERATE Called To: DARCY MRSA? YES 1. Methicillin Resis Staph Aureus M.I.C. RX --------- --- * Daptomycin 0.25 S * Vancomycin 1 S * Ciprofloxacin >=8 R * Clindamycin >=4 R * Doxycycline 2 S * Erythromycin >=8 R * Gentamicin <=0.5 S * Levofloxacin 4 I * Linezolid 2 S * Moxifloxacin 1 S * Oxacillin Mckinley >=4 R * Rifampin <=0.5 S * Tetracycline >=16 R * Trimethoprim/Sulfamethoxazole >=320 R Anaerobic Culture Final 03/11/21- 927 No growth. [facility] Medical History No pertinent past medical history Patient denies medical problems Surgical History No significant past surgical history Family History Mother No active medical problems Social History household members: significant other Smoking Status: Current every day smoker alcohol intake: never substance use type: heroin, IV drugs and methamphetamine (per hospital provider notes) Assessment & Plan Post-op Postoperative Procedures: Procedures Operation Date: 03/07/21 18:00 Actual Procedure Side Surgeon p Incision and Debridement left hand infection, 2nd and 5th fingers Left Callie Elias MD Postoperative day: 4 Postoperative status narrative: Improving Postoperative plan narrative: b.i.d. warm soapy soaks and packing changes to his left hand. He should soak for about 15 minutes in warm soapy water cultures growing back MRSA, will need minimum two weeks IV antibiotics with vanco. Disposition to be determined Quality VTE Deep Vein Thrombosis/Pulmonary Embolism Present on Admission: No
[2021-03-11 10:03] LABS: Vancomycin Trough 10.8 ug/mL (10-20)
--- NOTE | 2021-03-11 10:07 | CM.DPC ---
Addendum entered by Patricia Burris R.N. 03/11/21 15:19: Contacted Kellie at [facility] and she indicated, due to drug history, will not be able to see patient. Addendum entered by Patricia Burris R.N. 03/11/21 15:15: Called Medicaid transport through [facility]. The number is: . Spoke to Dov. He indicated, patient will be eligible for benefits. He stated that he can take advantage of free bus service in [facility]. Let him know that he may possibly need to go to [place] or [place] for primary provider, and patient can call this number. He will be eligible for gas vouchers, as well as bus passes, or taxis if needed. Addendum entered by Patricia Burris R.N. 03/11/21 14:32: Called [facility] and spoke to Gaye at the wound clinic. Asked her if they take Gray, she indicated that they would need to get the auth, or through the primary care. Let her know that patient does not yet have a primary care provider, have attempted most providers in [place], and attempted [facility]. Let her know that [facility] takes [facility], has appointments as soon as Mar 31. Gaye indicated, patient needs to be established with a primary care provider before they can see him. Addendum entered by Patricia Burris R.N. 03/11/21 13:09: Hallie from [facility], called back. She confirmed that they do take Gray, and they are booked up until approximately the Mar. Their provider is SUKHDEV Humphreys. She indicated that if patient is interested, he can go to the web site and fill out a form for new patient. Socialize, and can fill out new provider form and email back. It is unclear at this time if patient has any type of internet where he is. Can also disclose their phone number for them. It is questionable if patient will follow up to establish a new provider, but want to have thr resource available for him. It is noted that he received a PICC line today. Addendum entered by Patricia Burris R.N. 03/11/21 12:42: Called [facility] in [place], [place]. They no longer take swing beds. Addendum entered by Patricia Burris R.N. 03/11/21 11:33: Called [facility] in [place], they have primary care and walk in there. They are accepting new patients, but do not take Gray. Called [facility] on [facility], and was placed on hold for a while, and tried [facility] in [facility] and was placed on hold. Can try again later. Addendum entered by Patricia Burris R.N. 03/11/21 11:13: Berry from [facility] called and spoke to assistant Nuris, as this rehabilitation case coordinator was out of the office. He indicated that their nurse reviewed patient and can't accept due to drug use. Original Note: DCP Cont: Called [facility] in [place], and spoke to new admissions staff, Eriberto. Asked him if he had any beds available. He indicated, they have a long wait list of over a week. He did indicated that they do take Gray. Discussed patient during team rounds and hospitalist indicated, patient will need IV ABO until next Wednesday, which is the Mar. In the meantime, will continue to look for placement. Consulted with Kathrin GRECO, and indicated that [facility] may be a place to look into for primary care needs, as well as [facility]. P: DCP to continue to work on placement for IV therapy. Patricia Burris RN/Paper Folding Machine Operator
--- NOTE | 2021-03-11 10:20 | DI.RAD.S_ITS ---
PROCEDURE: XR CHEST 1V INDICATIONS: PIC Line placement TECHNIQUE: One view of the chest was acquired. COMPARISON: None. FINDINGS: Surgical changes and devices: Right upper extremity PICC is visualized with the distal tip projecting near the lower SVC. Lungs and pleura: Visualized portions of the lungs are clear. No right-sided pleural effusion or pneumothorax. Bones and chest wall: No suspicious bony lesions. Overlying soft tissues appear unremarkable. IMPRESSION: Right upper extremity PICC appears in place with the distal tip projecting over the lower SVC. Dictated by: Jamel Jin M.D. on 03/11/2021 at 11:24 Approved by: Jamel Jin M.D. on 03/11/2021 at 11:26
[2021-03-11] MEDS: DOCUSATE 100 MG CAPSULE PO ×2 (10:27→22:08)
[2021-03-11] MEDS: ENOXAPARIN 40 MG/0.4 ML SYRINGE SUBCUT (10:27)
[2021-03-11] MEDS: SODIUM CHLORIDE 0.9% FLUSH 10 ML IV ×2 (10:28→22:09)
[2021-03-11] MEDS: HYDROMORPHONE 1 MG INJ IV ×2 (11:20→18:17)
[2021-03-11 12:00] VITALS: BP 139/70; PULSE 63; RESP 18; TEMP 36.6; O2SAT 97
[2021-03-11] MEDS: NICOTINE 21 MG PATCH TOP (12:00)
[2021-03-11] MEDS: BISACODYL 5 MG TABLET 10 MG PO ×2 (15:50→18:16)
[2021-03-11] MEDS: MAGNESIUM HYDROXIDE 30 ML UDC PO (15:50)
[2021-03-11 17:00] VITALS: BP 136/82; PULSE 64; RESP 18; TEMP 36.4; O2SAT 98
--- NOTE | 2021-03-11 17:01 | P.PN_ITS ---
Subjective Subjective Date Patient Seen: 03/11/21 Time Patient Seen: 08:00 Interval history: Today he felt his hand pain is improving. He really wants to go home. Exam Vital Signs (past 8 hours): - 03/11/21 12:00 Temperature 97.8 F Pulse Rate 63 Respiratory Rate 18 Blood Pressure 139/70 Pulse Oximetry 97 Oxygen Delivery Method Room Air Oxygen Flow Rate 0 Narrative Exam Narrative: GEN: no acute distress PULM: clear bilaterally EXT: L hand bandaged, left fifth still swollen but improving and no longer very tender to touch Objective Labs Result Diagrams: 03/10/21 04:51 03/10/21 04:51 Labs: Laboratory Results - last 24 hr 03/10/21 03/11/21 21:10 09:25 Vancomycin Peak 23.1 Vancomycin Trough 10.8 PFSH Medical History No pertinent past medical history Patient denies medical problems Surgical History No significant past surgical history Family History Mother No active medical problems Social History household members: significant other Smoking Status: Current every day smoker alcohol intake: never substance use type: heroin, IV drugs and methamphetamine (per hospital provider notes) Assessment & Plan Assessment & Plan narrative: This is a 40-year-old previously healthy male with recent onset of bilateral hand pain and swelling who now presents with acute pain/swelling in the left hand after a ?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 Left hand cellulitis, present on admission.? Active.? -worsened despite 4-5 days of oral doxycycline.? -CRP elevated at 3.6 with ESR of 10 and white blood count of 11 on admission.? -CRP continues to climb, from 3.0-4.6 and now 6.0. -continue vancomycin, stop ceftriaxone -now status post orthopedic hand incision and drainage, left 5th finger dorsum, 03/07/2021. -cultures growing back MRSA, will need minimum two weeks IV antibiotics with van co or dapto -repeat blood cultures, order echo to rule out endocarditis Bilateral hand swelling, present on admission.? Active.? -repeat CRP is rising, now 6.0.? Growth hormone level is pending -rule out rheumatologic disorder COVID positive -no symptoms noted -no treatment indicated currently -monitor respiratory status Time Spent With Patient Critical Care time: I spent a total of [] minutes of critical care time on this patient's care today; this time is exclusive of procedural time. Quality VTE Deep Vein Thrombosis/Pulmonary Embolism Present on Admission: No MIPS - Admit I confirm the patient?s Advance Care Plan is present, Code status is documented, Surrogate decision maker is in patient?s record [If Yes, STOP here]: Yes
--- NOTE | 2021-03-11 18:41 | PC.NURSE ---
GI: Reporting constipation. made aware. Pt received mom and ducolox, had sm hard results. Given another dose of ducolox. Hopefully will have some results now or in the am. SUKHDEV Chang changed dressing to the lt hand. Cont with same care for now. Ortho will check pt again in the am.
[2021-03-11 20:10] VITALS: O2SAT 98
[2021-03-11] MEDS: HYDROCODONE/ACET 5/325 TABLET 2 TAB PO (22:08)
[2021-03-12] MEDS: HYDROMORPHONE 1 MG INJ IV ×4 (00:32→19:48)
[2021-03-12 01:00] VITALS: BP 143/85; PULSE 68; RESP 18; TEMP 36.3; O2SAT 98
[2021-03-12] MEDS: VANCOMYCIN 1,250 MG/250 ML PIGGYBACK 200 MG IV ×3 (01:28→19:05)
[2021-03-12 07:25] VITALS: BP 107/52; PULSE 64; RESP 18; TEMP 36.6; O2SAT 96
--- NOTE | 2021-03-12 10:30 | PM.PNPO.1 ---
Subjective Subjective Date Patient Seen: 03/12/21 Time Patient Seen: 10:30 Interval history: Patient's pain has been [id number]. Denies fever or chills. No nausea or vomiting. Exam Vital Signs (past 8 hours): Oxygen Delivery Method Room Air Oxygen Flow Rate 0 Narrative Exam Narrative: 41-year-old male resting comfortably in bed in no apparent distress. Dressing is removed. Very scant serosanguineous drainage noted. Left fifth finger is slightly swollen and less erythematous than yesterday. There is no fluctuance or new areas of concern about the left hand and fingers. Fingers are nontender to palpation. He is able to move all fingers without pain. Const General: cooperative and comfortable Orientation: alert Objective Labs Result Diagrams: 03/10/21 04:51 03/10/21 04:51 Labs: [facility] CLIA ID [id number] [address] [place] [id number] RUN DATE: 03/12/21 Specimen Inquiry PAGE 1 RUN TIME: 1033 Name: Remy Ramirez Jr Age/Sex: 41/M Attend Dr: Alan Basilio MD Unit#: [id number] : 1980Location: 224-1 Re03/07/21 Disch: Status: ADM IN SPEC #: [id number] REINA: 03/07/21 STATUS: COMP REQ #: [id number] SPDESC: RECD: 03/07/[address]: Callie Elias MD SOURCE: Hand Lt ENTR: 03/07/[address]: Alan Basilio MD FAX TO: ORDERED: WOUND Cx and GS COMMENTS: Comment culture & sensitivity, gram stain Procedure Result Verified Site Gram Stain Final 03/07/21-2157 No Organism Seen No organisms seen White blood cells Occasional WBC seen Epithelial cells None seen Aerobic Culture for wounds Final 03/09/21-840 Organism 1 Methicillin Resis Staph Aureus Growth MODERATE Called To: DARCY MRSA? YES 1. Methicillin Resis Staph Aureus M.I.C. RX --------- --- * Daptomycin 0.25 S * Vancomycin 1 S * Ciprofloxacin >=8 R * Clindamycin >=4 R * Doxycycline 2 S * Erythromycin >=8 R * Gentamicin <=0.5 S * Levofloxacin 4 I * Linezolid 2 S * Moxifloxacin 1 S * Oxacillin Mckinley >=4 R * Rifampin <=0.5 S * Tetracycline >=16 R * Trimethoprim/Sulfamethoxazole >=320 R Anaerobic Culture Final 03/11/21-927 No growth. [facility] Medical History No pertinent past medical history Patient denies medical problems Surgical History No significant past surgical history Family History Mother No active medical problems Social History household members: significant other Smoking Status: Current every day smoker alcohol intake: never substance use type: heroin, IV drugs and methamphetamine (per hospital provider notes) Assessment & Plan Post-op Postoperative Procedures: Procedures Operation Date: 03/07/21 18:00 Actual Procedure Side Surgeon p Incision and Debridement left hand infection, 2nd and 5th fingers Left Callie Elias MD Postoperative status: doing well Postoperative status narrative: Patient improving, status post irrigation debridement and drainage flexor tendon sheath left 5th digit, drainage abscess left index finger March 07, 2021 Postoperative plan narrative: Continue IV antibiotics B.i.d. warm soapy soaks and packing changes left hand Disposition to be determined Quality VTE Deep Vein Thrombosis/Pulmonary Embolism Present on Admission: No
[2021-03-12] MEDS: HYDROCODONE/ACET 5/325 TABLET 2 TAB PO (11:01)
[2021-03-12] MEDS: DOCUSATE 100 MG CAPSULE PO ×2 (11:01→20:59)
[2021-03-12] MEDS: SODIUM CHLORIDE 0.9% FLUSH 10 ML IV ×2 (11:02→20:59)
[2021-03-12] MEDS: ENOXAPARIN 40 MG/0.4 ML SYRINGE SUBCUT (11:02)
[2021-03-12 12:09] LABS: Vancomycin Trough 11.9 ug/mL (10-20)
--- NOTE | 2021-03-12 14:03 | PM.PN.1 ---
Subjective Subjective Date Patient Seen: 03/12/21 Time Patient Seen: 08:00 Interval history: Today he has no complaints. His pain is well controlled. Exam Vital Signs (past 8 hours): - 03/12/21 07:25 Temperature 97.8 F Pulse Rate 64 Respiratory Rate 18 Blood Pressure 107/52 L Pulse Oximetry 96 Oxygen Delivery Method Room Air Oxygen Flow Rate 0 Narrative Exam Narrative: GEN: no acute distress PULM: clear bilaterally EXT: L hand bandaged, left fifth still swollen but improving and no longer very tender to touch Objective Labs Result Diagrams: 03/10/21 04:51 03/10/21 04:51 Labs: Laboratory Results - last 24 hr 03/12/21 10:30 Vancomycin Trough 11.9 PFSH Medical History No pertinent past medical history Patient denies medical problems Surgical History No significant past surgical history Family History Mother No active medical problems Social History household members: significant other Smoking Status: Current every day smoker alcohol intake: never substance use type: heroin, IV drugs and methamphetamine (per hospital provider notes) Assessment & Plan Assessment & Plan narrative: This is a 40-year-old previously healthy male with recent onset of bilateral hand pain and swelling who now presents with acute pain/swelling in the left hand after a ?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 Left hand cellulitis, present on admission.? Active.? -worsened despite 4-5 days of oral doxycycline.? -CRP elevated at 3.6 with ESR of 10 and white blood count of 11 on admission.? -CRP continues to climb, from 3.0-4.6 and now 6.0. -continue vancomycin, stop ceftriaxone -now status post orthopedic hand incision and drainage, left 5th finger dorsum, 03/07/2021. -ECHO shows no evidence of endocarditis -cultures growing back MRSA, will need minimum two weeks IV antibiotics with vanco or dapto -repeat blood cultures, order echo to rule out endocarditis no growth to date Bilateral hand swelling, present on admission.? Active.? -repeat CRP is rising, now 6.0.? Growth hormone level is pending COVID positive -no symptoms noted -no treatment indicated currently -monitor respiratory status Patient is medically stable to discharge with IV antibiotics with vancomycin or daptomycin through 03/22. Dispo pending due to history of substance abuse. Time Spent With Patient Critical Care time: I spent a total of [] minutes of critical care time on this patient's care today; this time is exclusive of procedural time. Quality VTE Deep Vein Thrombosis/Pulmonary Embolism Present on Admission: No
[2021-03-12 15:11] LABS: Vancomycin Peak 24.2 ug/mL (20-40)
[2021-03-12 16:00] VITALS: BP 119/53; PULSE 60; RESP 18; TEMP 36.3; O2SAT 97
[2021-03-12 20:15] VITALS: BP 111/67; PULSE 67; RESP 20; TEMP 36.6; O2SAT 97
[2021-03-13] VITALS (7 sets, daily range): BP systolic 104–120; BP diastolic 47–72; PULSE 62–73; RESP 16–18; TEMP 36.2–36.7; O2SAT 96–98
[2021-03-13] MEDS: HYDROCODONE/ACET 5/325 TABLET 2 TAB PO ×2 (00:27→13:31)
[2021-03-13] MEDS: VANCOMYCIN 1,250 MG/250 ML PIGGYBACK 200 MG IV ×3 (01:13→17:54)
[2021-03-13] MEDS: DOCUSATE 100 MG CAPSULE PO ×2 (08:51→21:00)
[2021-03-13] MEDS: ENOXAPARIN 40 MG/0.4 ML SYRINGE SUBCUT (08:51)
[2021-03-13] MEDS: HYDROMORPHONE 1 MG INJ IV ×2 (08:51→17:54)
[2021-03-13] MEDS: SODIUM CHLORIDE 0.9% FLUSH 10 ML IV ×2 (08:52→21:00)
--- NOTE | 2021-03-13 08:57 | PM.PNPO.1 ---
Subjective Subjective Date Patient Seen: 03/13/21 Time Patient Seen: 08:57 Interval history: Doing well. Would like to discharge. States he has someone who can bring him to the hospital daily for IV antibiotic treatment. Exam Vital Signs (past 8 hours): - 03/13/21 02:34 Temperature 97.2 F L Pulse Rate 62 Respiratory Rate 18 Blood Pressure 120/53 L Pulse Oximetry 98 Oxygen Delivery Method Room Air Oxygen Flow Rate 0 Narrative Exam Narrative: Continued decreased in swelling and erythema of hand. Left small finger with open wound, able to express a minimal amount of purulent drainage. Pain only with palpation. Unable to fully flex or extend fingers, but movement and sensation grossly intact. Says he feels like there is a 'boot' on tip of small finger. Objective Labs Result Diagrams: 03/10/21 04:51 03/10/21 04:51 Labs: Laboratory Results - last 24 hr 03/12/21 03/12/21 10:30 13:20 Vancomycin Peak 24.2 Vancomycin Trough 11.9 PFSH Medical History No pertinent past medical history Patient denies medical problems Surgical History No significant past surgical history Family History Mother No active medical problems Social History household members: significant other Smoking Status: Current every day smoker alcohol intake: never substance use type: heroin, IV drugs and methamphetamine (per hospital provider notes) Assessment & Plan Post-op Postoperative Procedures: Procedures Operation Date: 03/07/21 18:00 Actual Procedure Side Surgeon p Incision and Debridement left hand infection, 2nd and 5th fingers Left Callie Elias MD Postoperative day: 6 Postoperative status: doing well Postoperative status narrative: Per medicine, stable to discharge with IV vanco or daptomycin through 03/22/2021. Quality VTE Deep Vein Thrombosis/Pulmonary Embolism Present on Admission: No
--- NOTE | 2021-03-13 11:07 | PM.PN.1 ---
Subjective Subjective Date Patient Seen: 03/13/21 Time Patient Seen: 08:00 Interval history: His hand continues to improve. He has minimal pain. Exam Vital Signs (past 8 hours): - 03/13/21 09:25 Temperature 97.4 F L Pulse Rate 69 Respiratory Rate 16 Blood Pressure 104/56 L Pulse Oximetry 96 Oxygen Delivery Method Room Air Oxygen Flow Rate 0 Narrative Exam Narrative: GEN: no acute distress EXT: L hand slightly swollen but improved, incision clean and dry, hand with no tenderness, and good range of motion Objective Labs Result Diagrams: 03/10/21 04:51 03/10/21 04:51 Labs: Laboratory Results - last 24 hr 03/12/21 03/12/21 10:30 13:20 Vancomycin Peak 24.2 Vancomycin Trough 11.9 PFSH Medical History No pertinent past medical history Patient denies medical problems Surgical History No significant past surgical history Family History Mother No active medical problems Social History household members: significant other Smoking Status: Current every day smoker alcohol intake: never substance use type: heroin, IV drugs and methamphetamine (per hospital provider notes) Assessment & Plan Assessment & Plan narrative: This is a 40-year-old previously healthy male with recent onset of bilateral hand pain and swelling who now presents with acute pain/swelling in the left hand after a ?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 Left hand cellulitis, present on admission.? Active.? -worsened despite 4-5 days of oral doxycycline.? -CRP elevated at 3.6 with ESR of 10 and white blood count of 11 on admission.? -CRP continues to climb, from 3.0-4.6 and now 6.0. -continue vancomycin, stop ceftriaxone -now status post orthopedic hand incision and drainage, left 5th finger dorsum, 03/07/2021. -ECHO shows no evidence of endocarditis -cultures growing back MRSA, will need minimum two weeks IV antibiotics with vanco or dapto -repeat blood cultures, order echo to rule out endocarditis no growth to date Bilateral hand swelling, present on admission.? Active.? -repeat CRP is rising, now 6.0.? Growth hormone level is pending COVID positive -no symptoms noted -no treatment indicated currently -monitor respiratory status Patient is medically stable to discharge with IV antibiotics with vancomycin or daptomycin through 03/22. Dispo pending due to history of substance abuse to find appropriate outpatient plan. Time Spent With Patient Critical Care time: I spent a total of [] minutes of critical care time on this patient's care today; this time is exclusive of procedural time. Quality VTE Deep Vein Thrombosis/Pulmonary Embolism Present on Admission: No
[2021-03-14] MEDS: HYDROMORPHONE 1 MG INJ IV ×4 (00:11→21:33)
[2021-03-14 01:53] VITALS: BP 131/89; PULSE 65; RESP 18; TEMP 36.2; O2SAT 98
[2021-03-14] MEDS: VANCOMYCIN 1,250 MG/250 ML PIGGYBACK 200 MG IV ×3 (02:38→18:50)
[2021-03-14] MEDS: HYDROCODONE/ACET 5/325 TABLET 2 TAB PO ×3 (02:46→18:59)
[2021-03-14 08:20] VITALS: BP 92/54; PULSE 66; RESP 16; TEMP 36.5; O2SAT 97
[2021-03-14] MEDS: ENOXAPARIN 40 MG/0.4 ML SYRINGE SUBCUT (09:51)
[2021-03-14] MEDS: DOCUSATE 100 MG CAPSULE PO ×2 (09:51→20:54)
[2021-03-14] MEDS: SODIUM CHLORIDE 0.9% FLUSH 10 ML IV ×2 (09:52→20:54)
--- NOTE | 2021-03-14 13:38 | P.PN_ITS ---
Subjective Subjective Interval history: The patient is a 40 year old male with a left hand infection. He has no known past medical history. He has a chronically swollen hands and has been complaining of his hands hurting for some months. He he tought he felt a?bite? when he was working on a car. he did not see an insect or snake or other animal capable of biting him. He was seen for this in the ED 5 days CERTIFIED OPTICIAN and was started on doxycycline. He returns evening C[employer]IED OPTICIAN with increasing pain and swelling. His CRP is 3.6 with a white blood count of 11 and a normal ESR of 10. A CT scan of the left hand shows no discrete fluid collection. He was discussed with orthopedics who recommended that he undergo an MRI. MRI hand reveals soft tissue edema and enhancement involving the 5th digit as well as the ulnar aspect of the 4th digit and ulnar aspect of the hand compatible with cellulitis. No discrete abscesses noted. Change of the 5th middle phalanx suspicious for osteomyelitis. Patient was seen by Orthopedics And surgical debridement of the left hand both at the 5th digit in at the dorsum of the index digit was recommended. The patient was taken to the OR 03/07/2021 for I and D of the flexor tendon sheath left 5th digit, and drainage abscess of left index finger When seen by this practitioner this morning and there are no new issues no new complaints. The pain of the hand had this markedly decreased. Exam Vital Signs (past 8 hours): - 03/14/21 08:20 Temperature 97.7 F Pulse Rate 66 Respiratory Rate 16 Blood Pressure 92/54 L Pulse Oximetry 97 Oxygen Delivery Method Room Air Oxygen Flow Rate 0 Narrative Exam Narrative: CONSTITUTIONAL: NAD HEENT: N/C A/T EOMI PERRLA SCLERA NONICTERIC CONJUNCTIVA CLEAR OROPHARYNX CLEAR Oropharynx clear NECK: Supple without thyromegaly bruits or jugular venous distention CARDIAC: Heart is regular rate and rhythm without murmur PULMONARY: Lungs are clear to auscultation bilaterally GASTROINTESTINAL: Abdomen is soft, nontender, no organomegaly. MUSCULOSKELETAL: L hand slightly swollen but improved, good range of motion, bandage is dry clean and intact NEUROLOGIC: Grossly physiologic Motor function is 4/5 throughout PSYCH: Mood and affect normal. Awake, alert, oriented x3. SKIN: Unremarkable other than as affected hand Objective Labs Result Diagrams: 03/10/21 04:51 03/10/21 04:51 [facility] Medical History No pertinent past medical history Patient denies medical problems Surgical History No significant past surgical history Family History Mother No active medical problems Social History household members: significant other Smoking Status: Current every day smoker alcohol intake: never substance use type: heroin, IV drugs and methamphetamine (per hospital provider notes) Assessment & Plan Assessment & Plan narrative: This is a 40-year-old previously healthy male with recent onset of bilateral hand pain and swelling who now presents with acute pain/swelling in the left hand after a ?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 Left hand cellulitis, present on admission.? Active.? -worsened despite 4-5 days of oral doxycycline.? -CRP elevated at 3.6 with ESR of 10 and white blood count of 11 on admission.? -CRP continues to climb, from 3.0-4.6 and now 6.0. -continue vancomycin, stop ceftriaxone -now status post orthopedic hand incision and drainage, left 5th finger dorsum, 03/07/2021. -ECHO shows no evidence of endocarditis -cultures growing back MRSA, will need minimum two weeks IV antibiotics with vanco or dapto -repeat blood cultures, no growth to date Bilateral hand swelling, present on admission.? Active.? -repeat CRP is rising, now 6.0.? Growth hormone level is pending COVID positive -no symptoms noted -no treatment indicated currently -monitor respiratory status No Lovenox indicated so far as patient is mobile in the room without expected prolonged immobilization. Time Spent With Patient Critical Care time: I spent a total of [] minutes of critical care time on this patient's care today; this time is exclusive of procedural time. Quality VTE Deep Vein Thrombosis/Pulmonary Embolism Present on Admission: No
--- NOTE | 2021-03-14 14:43 | P.PN_ITS ---
Subjective Subjective Date Patient Seen: 03/14/21 Time Patient Seen: 14:43 Interval history: Lying in bed, excited to talk about the [place] he's planning to rebuild. Exam Vital Signs (past 8 hours): - 03/14/21 08:20 Temperature 97.7 F Pulse Rate 66 Respiratory Rate 16 Blood Pressure 92/54 L Pulse Oximetry 97 Oxygen Delivery Method Room Air Oxygen Flow Rate 0 Narrative Exam Narrative: Left small finger continues to have some purulent drainage and erythema but otherwise hand is minimally swollen and not erythematous. Sensation to touch intact throughout. Continuing BID soaks himself.. Objective Labs Result Diagrams: 03/10/21 04:51 03/10/21 04:51 [facility] Medical History No pertinent past medical history Patient denies medical problems Surgical History No significant past surgical history Family History Mother No active medical problems Social History household members: significant other Smoking Status: Current every day smoker alcohol intake: never substance use type: heroin, IV drugs and methamphetamine (per hospital provider notes) Assessment & Plan Post-op Postoperative Procedures: Procedures Operation Date: 03/07/21 18:00 Actual Procedure Side Surgeon p Incision and Debridement left hand infection, 2nd and 5th fingers Left Callie Elias MD Postoperative day: 7 Postoperative status narrative: Continues on IV antibiotics for MRSA. Postoperative plan narrative: Continuing IV antibiotics until 03/22/2021. Remove sutures on 03/19/2021 if pt still hospitalized. Can follow up in orthopedic clinic w/ Dr Elias or a physician regional administrative assistant 2 weeks after discharge for wound check. Ortho will sign off; please reconsult if necessary. Quality VTE Deep Vein Thrombosis/Pulmonary Embolism Present on Admission: No
[2021-03-14 21:03] VITALS: BP 125/59; PULSE 65; RESP 17; TEMP 36.3; O2SAT 100
[2021-03-15] MEDS: VANCOMYCIN 1,250 MG/250 ML PIGGYBACK 200 MG IV ×2 (01:33→10:15)
[2021-03-15] MEDS: HYDROMORPHONE 1 MG INJ IV ×4 (04:01→20:16)
[2021-03-15 05:00] VITALS: BP 111/65; PULSE 64; RESP 18; TEMP 36.3; O2SAT 99
[2021-03-15] MEDS: ENOXAPARIN 40 MG/0.4 ML SYRINGE SUBCUT (09:47)
[2021-03-15] MEDS: SODIUM CHLORIDE 0.9% FLUSH 10 ML IV ×2 (09:48→20:17)
[2021-03-15] MEDS: VANCOMYCIN TROUGH 1 REQUEST MISC (09:48)
[2021-03-15 10:02] LABS: Estimated Glomerular Filt Rate > 60.0 mL/min (>60)
[2021-03-15 10:13] LABS: Vancomycin Trough 17.9 ug/mL (10-20)
[2021-03-15] MEDS: HYDROCODONE/ACET 5/325 TABLET 2 TAB PO ×3 (11:43→22:59)
[2021-03-15] MEDS: VANCOMYCIN PEAK 1 REQUEST MISC (12:25)
--- NOTE | 2021-03-15 13:01 | P.PN_ITS ---
Subjective Subjective Interval history: The patient is a 40 year old male with a left hand infection.? He has no known past medical history.? He has a chronically swollen hands and has been complaining of his hands hurting for some months.? He he tought he felt a?bite? when he was working on a car.? he did not see an insect or snake or other animal capable of biting him.? He was seen for this in the ED? 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 His CRP is 3.6 with a white blood count of 11 and a normal ESR of 10.? A CT scan of the left hand shows no discrete fluid collection.? He was discussed with orthopedics who recommended that he undergo an MRI. ? MRI hand reveals soft tissue edema and enhancement involving the 5th digit as well as the ulnar aspect of the 4th digit and ulnar aspect of the hand compatible with cellulitis.? No discrete abscesses noted.? Change of the 5th middle phalanx suspicious for osteomyelitis.? Patient was seen by Orthopedics And surgical debridement of the left hand both at the 5th digit in at the dorsum of the index digit was recommended.? The patient was taken to the OR 03/07/2021 for I and D of the flexor tendon sheath left 5th digit, and drainage abscess of left index finger 03/14 When seen by this practitioner this morning and there are no new issues no new complaints.? The pain of the hand had this markedly decreased. 03/15 he states continue improved. There is less swelling of the hand he has able to move all fingers and partially make a fist. Exam Vital Signs (past 8 hours): Oxygen Delivery Method Room Air Oxygen Flow Rate 0 Narrative Exam Narrative: CONSTITUTIONAL: NAD HEENT: N/C A/T EOMI? PERRLA SCLERA NONICTERIC CONJUNCTIVA CLEAR OROPHARYNX CLEAR? ? Oropharynx clear NECK:? Supple without thyromegaly bruits or jugular venous distention CARDIAC:? Heart is regular rate and rhythm without murmur PULMONARY:? Lungs are clear to auscultation bilaterally GASTROINTESTINAL:? Abdomen is soft, nontender, no organomegaly. MUSCULOSKELETAL: L hand slightly swollen but improved, good range of motion, bandage is dry clean and intact NEUROLOGIC:? Grossly physiologic Motor function is 4/5 throughout PSYCH:? Mood and affect normal.? Awake, alert, oriented x3. Objective Labs Result Diagrams: 03/10/21 04:51 03/15/21 09:48 Labs: Laboratory Results - last 24 hr 03/15/21 03/15/21 09:48 09:48 Creatinine 1.03 Estimated GFR > 60.0 Vancomycin Trough 17.9 PFSH Medical History No pertinent past medical history Patient denies medical problems Surgical History No significant past surgical history Family History Mother No active medical problems Social History household members: significant other Smoking Status: Current every day smoker alcohol intake: never substance use type: heroin, IV drugs and methamphetamine (per hospital provider notes) Assessment & Plan Assessment & Plan narrative: [address] [address] Progress Note Patient: Remy Ramirez Jr MR#: [id number] : 1980 Acct:[id number] Age/Sex: 41 / M ? Date of Service: 03/07/21 Provider:?Eloy Navas MD Subjective Subjective Interval history: The patient is a 40 year old male with a left hand infection.? He has no known past medical history.? He has a chronically swollen hands and has been complaining of his hands hurting for some months.? He he tought he felt a?bite? when he was working on a car.? he did not see an insect or snake or other animal capable of biting him.? He was seen for this in the ED? 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 His CRP is 3.6 with a white blood count of 11 and a normal ESR of 10.? A CT scan of the left hand shows no discrete fluid collection.? He was discussed with orthopedics who recommended that he undergo an MRI. ? MRI hand reveals soft tissue edema and enhancement involving the 5th digit as well as the ulnar aspect of the 4th digit and ulnar aspect of the hand compatible with cellulitis.? No discrete abscesses noted.? Change of the 5th middle phalanx suspicious for osteomyelitis.? Patient was seen by Orthopedics And surgical debridement of the left hand both at the 5th digit in at the dorsum of the index digit was recommended.? The patient was taken to the OR 03/07/2021 for I and D of the flexor tendon sheath left 5th digit, and drainage abscess of left index finger When seen by this practitioner this morning and there are no new issues no new complaints.? The pain of the hand had this markedly decreased. Exam Vital Signs (past 8 hours): - ? 03/14/21 08:20 Temperature 97.7 F Pulse Rate 66 Respiratory Rate 16 Blood Pressure 92/54 L Pulse Oximetry 97 Oxygen Delivery Method? Room Air? Oxygen Flow Rate? 0 ? Narrative Exam Narrative: CONSTITUTIONAL: NAD HEENT: N/C A/T EOMI? PERRLA SCLERA NONICTERIC CONJUNCTIVA CLEAR OROPHARYNX CLEAR ? ? Oropharynx clear NECK:? Supple without thyromegaly bruits or jugular venous distention CARDIAC:? Heart is regular rate and rhythm without murmur PULMONARY:? Lungs are clear to auscultation bilaterally GASTROINTESTINAL:? Abdomen is soft, nontender, no organomegaly. MUSCULOSKELETAL: L hand slightly swollen but improved, good range of motion, bandage is dry clean and intact NEUROLOGIC:? Grossly physiologic Motor function is 4/5 throughout PSYCH:? Mood and affect normal.? Awake, alert, oriented x3. SKIN:? Unremarkable other than as affected hand Objective Labs Result Diagrams: 03/10/21 04:51? 03/10/21 04:51? PFSH Medical History? No pertinent past medical history Patient denies medical problems Surgical History? No significant past surgical history Family History? Mother No active medical problems Social History? household members:? significant other Smoking Status:? Current every day smoker alcohol intake:? never substance use type:? heroin, IV drugs and methamphetamine (per hospital provider notes) Assessment & Plan Assessment & Plan narrative: This is a 40-year-old previously healthy male with recent onset of bilateral hand pain and swelling who now presents with acute pain/swelling in the left hand after a ?bite? 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 Left hand cellulitis, present on admission.? Active.? -worsened despite 4-5 days of oral doxycycline.? -CRP elevated at 3.6 with ESR of 10 and white blood count of 11 on admission.? -CRP Maximal bump 6.0 trending downward - I&D left hand infection, 2nd and 5th fingers 03/07/2021 -continue vancomycin, stop ceftriaxone -ECHO shows no evidence of endocarditis -cultures growing back MRSA, will need minimum two weeks IV antibiotics with vanco or dapto - 2 weeks of IV antibiotics last day 03/21/2019 to -Ortho will sign off; -repeat blood cultures, no growth to date Bilateral hand swelling, present on admission.? Active.? - improved COVID positive -no symptoms noted -no treatment indicated currently -monitor respiratory status DISPO per ortho.Remove sutures on 03/19/2021 if pt still hospitalized.? Can follow up in orthopedic clinic w/ Dr Elias or a physician budget assistant 2 weeks after discharge for wound check.? Time Spent With Patient Critical Care time: I spent a total of [] minutes of critical care time on this patient's care today; this time is exclusive of procedural time. Quality VTE Deep Vein Thrombosis/Pulmonary Embolism Present on Admission: No
--- NOTE | 2021-03-15 13:18 | PC.NURSE ---
repeat Covid test done at 1310
[2021-03-15 13:21] LABS: Vancomycin Peak 28.7 ug/mL (20-40)
[2021-03-15 13:57] LABS: COVID19 -Nasal RAPID Negative (Negative)
[2021-03-15 16:26] VITALS: BP 115/70; PULSE 66; RESP 19; TEMP 36.6; O2SAT 99
[2021-03-15 19:57] VITALS: O2SAT 97
[2021-03-15] MEDS: DOCUSATE 100 MG CAPSULE PO (20:17)
[2021-03-15 20:22] VITALS: BP 128/86; PULSE 71; RESP 18; TEMP 36.2; O2SAT 100
[2021-03-15] MEDS: VANCOMYCIN 1,500 MG/300 ML PIGGYBACK 200 MG IV (21:16)
[2021-03-16] MEDS: HYDROMORPHONE 1 MG INJ IV ×4 (01:59→22:21)
[2021-03-16 04:50] VITALS: BP 101/49; PULSE 63; RESP 19; TEMP 35.9; O2SAT 97
[2021-03-16] MEDS: HYDROCODONE/ACET 5/325 TABLET 2 TAB PO ×2 (06:42→15:10)
[2021-03-16 08:00] VITALS: BP 109/50; PULSE 66; RESP 18; TEMP 36.6; O2SAT 98
[2021-03-16 09:30] VITALS: PULSE 66; RESP 18; O2SAT 98
[2021-03-16] MEDS: DOCUSATE 100 MG CAPSULE PO ×2 (09:57→21:40)
[2021-03-16] MEDS: NICOTINE 21 MG PATCH TOP (09:57)
[2021-03-16] MEDS: ENOXAPARIN 40 MG/0.4 ML SYRINGE SUBCUT (09:57)
[2021-03-16] MEDS: SODIUM CHLORIDE 0.9% FLUSH 10 ML IV ×3 (09:58→21:40)
[2021-03-16] MEDS: VANCOMYCIN 1,500 MG/300 ML PIGGYBACK 200 MG IV ×2 (10:53→22:06)
[2021-03-16 11:26] LABS: COVID19 - ADMIT (NP swab/PCR) Negative (Negative)
[2021-03-16 13:00] VITALS: BP 110/70; PULSE 88; RESP 17; TEMP 36.6; O2SAT 99
--- NOTE | 2021-03-16 13:12 | PM.PN.1 ---
Subjective Subjective Interval history: The patient is a 40 year old male with a left hand infection.? He has no known past medical history.? He has a chronically swollen hands and has been complaining of his hands hurting for some months.? He he tought he felt a?bite? when he was working on a car.? he did not see an insect or snake or other animal capable of biting him.? He was seen for this in the ED? 5 days [employer]PRESENT[employer] [facility] and was started on doxycycline.? He returns evening [employer] with increasing pain and swelling.? His CRP is 3.6 with a white blood count of 11 and a normal ESR of 10.? A CT scan of the left hand shows no discrete fluid collection.? He was discussed with orthopedics who recommended that he undergo an MRI. ? MRI hand reveals soft tissue edema and enhancement involving the 5th digit as well as the ulnar aspect of the 4th digit and ulnar aspect of the hand compatible with cellulitis.? No discrete abscesses noted.? Change of the 5th middle phalanx suspicious for osteomyelitis.? Patient was seen by Orthopedics And surgical debridement of the left hand both at the 5th digit in at the dorsum of the index digit was recommended.? The patient was taken to the OR 03/07/2021 for I and D of the flexor tendon sheath left 5th digit, and drainage abscess of left index finger 03/14 When seen by this practitioner this morning and there are no new issues no new complaints.? The pain of the hand had this markedly decreased. 03/15 he? states continue improved.? There is less swelling of the hand he has able to move all fingers and partially make a fist. 03/16 under been no new issues no new problems in the past 24 hours. As before patient states pain and swelling of hand is less and he has more movement. His COVID-19 PCR was positive on 03/07/2021. It has now been negative x2 01/13/2022 and again this morning 03/16/2019 to Exam Vital Signs (past 8 hours): - 03/16/21 08:00 03/16/21 09:30 Temperature 97.8 F Pulse Rate 66 66 Respiratory Rate 18 18 Blood Pressure 109/50 L Pulse Oximetry 98 98 Oxygen Delivery Method Room Air Oxygen Flow Rate 0 Narrative Exam Narrative: CONSTITUTIONAL: NAD HEENT: N/C A/T EOMI? PERRLA SCLERA NONICTERIC CONJUNCTIVA CLEAR OROPHARYNX CLEAR? ? Oropharynx clear NECK:? Supple without thyromegaly bruits or jugular venous distention CARDIAC:? Heart is regular rate and rhythm without murmur PULMONARY:? Lungs are clear to auscultation bilaterally GASTROINTESTINAL:? Abdomen is soft, nontender, no organomegaly. MUSCULOSKELETAL: L hand slightly swollen but improved, better range of motion, bandage is dry clean and intact NEUROLOGIC:? Grossly physiologic Motor function is 4/5 throughout PSYCH:? Mood and affect normal.? Awake, alert, oriented x3. SKIN:? Unremarkable other than as affected hand Objective Labs Result Diagrams: 03/10/21 04:51 03/15/21 09:48 Labs: Laboratory Results - last 24 hr 03/15/21 03/15/21 03/16/21 12:20 13:10 10:15 Vancomycin Peak 28.7 SARS-CoV-2 (PCR) Negative Negative [facility] Medical History No pertinent past medical history Patient denies medical problems Surgical History No significant past surgical history Family History Mother No active medical problems Social History household members: significant other Smoking Status: Current every day smoker alcohol intake: never substance use type: heroin, IV drugs and methamphetamine (per hospital provider notes) Assessment & Plan Assessment & Plan narrative: This is a 40-year-old previously healthy male with recent onset of bilateral hand pain and swelling who now presents with acute pain/swelling in the left hand after a ?bite? 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 Left hand cellulitis, present on admission.? Active.? -worsened despite 4-5 days of oral doxycycline.? -CRP elevated at 3.6 with ESR of 10 and white blood count of 11 on admission.? -CRP ? Maximal bump 6.0 trending downward - I&D left hand infection, 2nd and 5th fingers? 03/07/2021 -continue vancomycin -ECHO shows no evidence of endocarditis -cultures growing back MRSA, will need minimum two weeks IV antibiotics with vanco or dapto - 2 weeks of IV antibiotics last day 03/21/2021 -Ortho hasl sign off; -repeat blood cultures, no growth to date Bilateral hand swelling, present on admission.? Active.? - improved COVID positive - his PCR was positive on admission. Two PCRs 1 yesterday and 1 today are both negative DISPO per ortho.Remove sutures on 03/19/2021 if pt still hospitalized.? Can follow up in orthopedic clinic w/ Dr Elias or a physician evaluation assistant 2 weeks after discharge for wound check.? Time Spent With Patient Critical Care time: I spent a total of [] minutes of critical care time on this patient's care today; this time is exclusive of procedural time. Quality VTE Deep Vein Thrombosis/Pulmonary Embolism Present on Admission: No
[2021-03-16 20:04] VITALS: BP 125/79; PULSE 64; RESP 16; TEMP 36.6; O2SAT 99
[2021-03-17] MEDS: HYDROMORPHONE 1 MG INJ IV ×4 (05:17→23:20)
[2021-03-17 08:00] VITALS: BP 116/56; PULSE 68; RESP 18; TEMP 36.6; O2SAT 97
[2021-03-17 08:26] VITALS: PULSE 63; RESP 20; O2SAT 96
[2021-03-17] MEDS: HYDROCODONE/ACET 5/325 TABLET 2 TAB PO ×3 (08:43→20:14)
[2021-03-17] MEDS: ENOXAPARIN 40 MG/0.4 ML SYRINGE SUBCUT (08:43)
[2021-03-17] MEDS: SODIUM CHLORIDE 0.9% FLUSH 10 ML IV ×4 (08:45→21:00)
[2021-03-17 10:07] LABS: Vancomycin Trough 11.5 ug/mL (10-20)
[2021-03-17] MEDS: VANCOMYCIN 1,500 MG/300 ML PIGGYBACK 200 MG IV ×2 (10:17→22:29)
[2021-03-17 14:03] LABS: Vancomycin Peak 29.1 ug/mL (20-40)
--- NOTE | 2021-03-17 15:05 | PM.PN.1 ---
Subjective Subjective Date Patient Seen: 03/17/21 Time Patient Seen: 08:00 Interval history: He has some moderate hand pain, primarily at the base of the fifth finger. It improves with pain medications. Exam Vital Signs (past 8 hours): - 03/17/21 08:00 03/17/21 08:26 Temperature 97.8 F Pulse Rate 68 63 Respiratory Rate 18 20 Blood Pressure 116/56 L Pulse Oximetry 97 96 Oxygen Delivery Method Room Air Oxygen Flow Rate 0 Narrative Exam Narrative: GEN: no acute distress CARDIAC:? Heart is regular rate and rhythm without murmur PULMONARY:? Lungs are clear to auscultation bilaterally MUSCULOSKELETAL: L hand slightly swollen but improved, better range of motion, no fluctuance Objective Labs Result Diagrams: 03/10/21 04:51 03/15/21 09:48 Labs: Laboratory Results - last 24 hr 03/17/21 03/17/21 09:30 13:05 Vancomycin Peak 29.1 Vancomycin Trough 11.5 PFSH Medical History No pertinent past medical history Patient denies medical problems Surgical History No significant past surgical history Family History Mother No active medical problems Social History household members: significant other Smoking Status: Current every day smoker alcohol intake: never substance use type: heroin, IV drugs and methamphetamine (per hospital provider notes) Assessment & Plan Assessment & Plan narrative: 40-year-old previously healthy male with recent onset of bilateral hand pain and swelling who now presents with acute pain/swelling in the left hand after a ?bite? 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 1. Left hand cellulitis, present on admission.? Active.? -worsened despite 4-5 days of oral doxycycline.? -CRP elevated at 3.6 with ESR of 10 and white blood count of 11 on admission.? -CRP maximal bump 6.0 trending downward - I&D left hand infection, 2nd and 5th fingers? 03/07/2021 -continue vancomycin -ECHO shows no evidence of endocarditis -cultures growing back MRSA, will need minimum two weeks IV antibiotics with vanco or dapto -2 weeks of IV antibiotics last day 03/22/21 -Ortho signed off -repeat blood cultures, no growth to date 2. Bilateral hand swelling, present on admission.? Active.? - improved COVID positive - his PCR was positive on admission.? Two PCRs 1 yesterday and 1 today are both negative DISPO needs to finish IV antibiotics through 03/22 for 14 day course. At this point it has been unable to be arranged to get this antibiotic outside the hospital. Time Spent With Patient Critical Care time: I spent a total of [] minutes of critical care time on this patient's care today; this time is exclusive of procedural time. Quality VTE Deep Vein Thrombosis/Pulmonary Embolism Present on Admission: No
[2021-03-17 16:00] VITALS: BP 119/66; PULSE 68; RESP 18; TEMP 36.6; O2SAT 96
[2021-03-17 19:50] VITALS: BP 118/66; PULSE 70; RESP 18; TEMP 36.2; O2SAT 97
[2021-03-17 20:34] VITALS: PULSE 93; RESP 20; O2SAT 98
[2021-03-17] MEDS: ALBUTEROL 2.5 MG/3 ML NEB (ADULT) INH (20:34)
[2021-03-17] MEDS: DOCUSATE 100 MG CAPSULE PO (21:00)
[2021-03-18] MEDS: HYDROCODONE/ACET 5/325 TABLET 2 TAB PO ×4 (03:18→23:40)
[2021-03-18] MEDS: SODIUM CHLORIDE 0.9% FLUSH 10 ML IV ×3 (07:16→21:14)
[2021-03-18] MEDS: HYDROMORPHONE 1 MG INJ IV ×3 (07:16→20:19)
--- NOTE | 2021-03-18 07:34 | PC.NURSE ---
mounting inspector RN had reported that patient had showered early this morning and he changed to dressing and wrapped it with gauze. Upon this RN's arrival patient had removed bandage and again had two incisions open to air with sutures in place. Patient states pain is severe again this morning with itching and burning to his left hand. Patient reports swelling is better than before, and patient can move all fingers with +cap refill. Medicated with dilaudid as ordered prn, and given warm blankets as patient would like to continue to rest at this time.
[2021-03-18 09:49] VITALS: BP 112/70; PULSE 80; RESP 18; TEMP 36.6; O2SAT 99
[2021-03-18] MEDS: ENOXAPARIN 40 MG/0.4 ML SYRINGE SUBCUT (09:59)
[2021-03-18] MEDS: VANCOMYCIN 1,500 MG/300 ML PIGGYBACK 200 MG IV ×2 (09:59→21:13)
[2021-03-18 17:00] VITALS: BP 109/76; PULSE 69; RESP 17; TEMP 36.6; O2SAT 100
--- NOTE | 2021-03-18 17:40 | PM.PN.1 ---
Subjective Subjective Interval history: Patient reports continued improvement in the ROM of his left hand and fingers. He reports daily improvement in the swelling and tenseness of the hand, too. Denies any other complaints. Exam Vital Signs (past 8 hours): - 03/18/21 09:49 Temperature 97.8 F Pulse Rate 80 Respiratory Rate 18 Blood Pressure 112/70 Pulse Oximetry 99 Oxygen Delivery Method Room Air Oxygen Flow Rate 0 Narrative Exam Narrative: GEN: no acute distress CARDIAC:?RRR, S1 and S2 heart sounds normal PULMONARY: lungs are clear to auscultation bilaterally MUSCULOSKELETAL: left hand slightly swollen but improved, better range of motion, no fluctuance noted Objective Labs Result Diagrams: 03/10/21 04:51 03/15/21 09:48 [facility] Medical History No pertinent past medical history Patient denies medical problems Surgical History No significant past surgical history Family History Mother No active medical problems Social History household members: significant other Smoking Status: Current every day smoker alcohol intake: never substance use type: heroin, IV drugs and methamphetamine (per hospital provider notes) Assessment & Plan Assessment & Plan narrative: 40-year-old previously healthy male with recent onset of bilateral hand pain and swelling who now presents with acute pain/swelling in the left hand after a ?bite? 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 1. Left hand cellulitis, present on admission, active -worsened despite 4-5 days of oral doxycycline -CRP elevated at 3.6 with ESR of 10 and white blood count of 11 on admission.? -CRP maximal bump 6.0 trending downward -I&D left hand infection, 2nd and 5th fingers? 03/07/2021 -continue vancomycin -ECHO shows no evidence of endocarditis -cultures growing back MRSA, will need minimum two weeks IV antibiotics with vanco -2 weeks of IV antibiotics last day 03/22/21 -Ortho signed off -repeat blood cultures, no growth to date 2. Bilateral hand swelling, present on admission.? Active.? - improved COVID positive - his PCR was positive on admission.? Two PCRs 1 yesterday and 1 today are both negative DISPO needs to finish IV antibiotics through 03/22 for 14 day course. At this point it has been unable to be arranged to get this antibiotic outside the hospital. Time Spent With Patient Critical Care time: I spent a total of [] minutes of critical care time on this patient's care today; this time is exclusive of procedural time. Quality VTE Deep Vein Thrombosis/Pulmonary Embolism Present on Admission: No MIPS - Admit I confirm the patient?s Advance Care Plan is present, Code status is documented, Surrogate decision maker is in patient?s record [If Yes, STOP here]: Yes
[2021-03-18 20:00] VITALS: BP 140/69; PULSE 66; RESP 16; TEMP 37.1; O2SAT 96
[2021-03-18] MEDS: DOCUSATE 100 MG CAPSULE PO (20:20)
[2021-03-19 04:00] VITALS: BP 131/54; RESP 16; O2SAT 98
[2021-03-19] MEDS: HYDROMORPHONE 1 MG INJ IV ×3 (05:10→19:41)
[2021-03-19 08:25] VITALS: PULSE 67; RESP 16; O2SAT 96
[2021-03-19] MEDS: DOCUSATE 100 MG CAPSULE PO ×2 (09:23→21:43)
[2021-03-19] MEDS: HYDROCODONE/ACET 5/325 TABLET 2 TAB PO ×3 (09:23→17:11)
[2021-03-19] MEDS: ENOXAPARIN 40 MG/0.4 ML SYRINGE SUBCUT (09:24)
[2021-03-19] MEDS: SODIUM CHLORIDE 0.9% FLUSH 10 ML IV ×3 (09:25→21:43)
[2021-03-19] MEDS: VANCOMYCIN 1,500 MG/300 ML PIGGYBACK 200 MG IV ×2 (09:38→21:35)
[2021-03-19 11:33] VITALS: BP 107/57; PULSE 68; RESP 17; TEMP 36.7; O2SAT 96
--- NOTE | 2021-03-19 13:30 | PC.NURSE ---
PA removed stitches and placed a wic but pt reported it fell off. placed another wic, was not really able to place it in the middle because pt refused.
--- NOTE | 2021-03-19 18:28 | DIET.PN1 ---
Dietary Progress Note RD Note: 41y M admitted for L hand infection screened by RD for LOS day 12. Pt appears to be progressing with treatment. Pts POs excellent, consuming 100% meal trays. No nutrition concerns at this time. Ht: 175.26 cm Wt: 88.451 kg BMI: 28.8 UBW: Last BM: 03/16/21 (03/16/21 09:30) MNA: Rubin Score: 22 Diet: 03/08/21 Breakfast General (Regular) Diet Diet Modifications: Nutrition Percent Meal Consumed 100% 03/19/21 12:30 Percent Meal Consumed 100% 03/19/21 09:00 Percent Meal Consumed 100% 03/18/21 18:00 Percent Meal Consumed 100% 03/18/21 14:15 Percent Meal Consumed 100% 03/18/21 09:00 Labs: RBC 4.31 X10^6/uL (4.5-5.9) L 03/10/21 04:51 Hgb 13.2 g/dL (13.5-17.5) L 03/10/21 04:51 Hct 38.5 % (41-53) L 03/10/21 04:51 Creatinine 1.03 mg/dL (0.66-1.25) 03/15/21 09:48 Lactate 1.8 mmol/L (0.7-2.1) 03/07/21 00:40 Electronically Signed by: Karla Azar 03/19/21 18:28 Clinical Dietitian [address] [address]
[2021-03-19 19:00] VITALS: BP 127/72; PULSE 69; RESP 18; TEMP 36.6; O2SAT 98
[2021-03-19 19:27] VITALS: O2SAT 97
--- NOTE | 2021-03-19 19:47 | PM.PN.1 ---
Subjective Subjective Interval history: The patient denies any acute complaints this morning. He does complain of some itchiness around the suture site. Reports good PO intake and good output. Exam Vital Signs (past 8 hours): - 03/19/21 19:27 Pulse Oximetry 97 Oxygen Delivery Method Room Air Oxygen Flow Rate 0 Narrative Exam Narrative: GEN: no acute distress CARDIAC:?RRR, S1 and S2 heart sounds normal PULMONARY: lungs are clear to auscultation bilaterally MUSCULOSKELETAL: left hand slightly swollen but improved, better range of motion, no fluctuance noted Objective Labs Result Diagrams: 03/10/21 04:51 03/15/21 09:48 [facility] Medical History No pertinent past medical history Patient denies medical problems Surgical History No significant past surgical history Family History Mother No active medical problems Social History household members: significant other Smoking Status: Current every day smoker alcohol intake: never substance use type: heroin, IV drugs and methamphetamine (per hospital provider notes) Assessment & Plan Assessment & Plan narrative: 40-year-old previously healthy male with recent onset of bilateral hand pain and swelling who now presents with acute pain/swelling in the left hand after a ?bite? 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 1. Left hand cellulitis, present on admission, active -worsened despite 4-5 days of oral doxycycline -CRP elevated at 3.6 with ESR of 10 and white blood count of 11 on admission.? -CRP maximal bump 6.0 trending downward -I&D left hand infection, 2nd and 5th fingers? 03/07/2021 -continue vancomycin -ECHO shows no evidence of endocarditis -cultures growing back MRSA, will need minimum two weeks IV antibiotics with vanco -2 weeks of IV antibiotics last day 03/22/21 -Ortho signed off -repeat blood cultures, no growth to date 2. Bilateral hand swelling, present on admission.? Active.? - improved COVID positive - his PCR was positive on admission.? Two PCRs 1 yesterday and 1 today are both negative DISPO needs to finish IV antibiotics through Mar 22 for 14 day course. At this point it has been unable to be arranged to get this antibiotic outside the hospital. Time Spent With Patient Critical Care time: I spent a total of [] minutes of critical care time on this patient's care today; this time is exclusive of procedural time. Quality VTE Deep Vein Thrombosis/Pulmonary Embolism Present on Admission: No
[2021-03-20] MEDS: HYDROCODONE/ACET 5/325 TABLET 2 TAB PO ×4 (05:10→23:15)
[2021-03-20] MEDS: HYDROMORPHONE 1 MG INJ IV ×3 (07:41→21:13)
[2021-03-20 08:00] VITALS: BP 134/90; PULSE 63; RESP 18; TEMP 36.5; O2SAT 97
[2021-03-20] MEDS: DOCUSATE 100 MG CAPSULE PO ×2 (08:33→21:14)
[2021-03-20] MEDS: SODIUM CHLORIDE 0.9% FLUSH 10 ML IV ×2 (08:33→21:14)
[2021-03-20] MEDS: ENOXAPARIN 40 MG/0.4 ML SYRINGE SUBCUT (08:33)
[2021-03-20] MEDS: VANCOMYCIN 1,500 MG/300 ML PIGGYBACK 200 MG IV ×2 (09:27→21:18)
--- NOTE | 2021-03-20 09:33 | PC.NURSE ---
applied new wic/dressing to lt. hand. Again, the patient only wanted me to lay the wic on top of his incision, I told the patient that the provider does not want the wound to completely close.
[2021-03-20 12:36] LABS: Add Manual Diff / Slide Review NO; Basophils Absolute Auto 100 /uL (0-100); Basophils Percent Auto 1.4 % (0-2); Eosinophils Absolute Auto 500 /uL (0-450); Eosinophils Percent Auto 7.7 % (2-4); Hematocrit 38.4 % (41-53); Hemoglobin 13.2 g/dL (13.5-17.5); Lymphocytes Absolute Auto 2200 /uL (1100-4500); Lymphocytes Percent Auto 36.3 % (25-40); Mean Corpuscular HGB Conc 34.3 % (30-36); Mean Corpuscular Hemoglobin 31.1 PG (26-34); Mean Corpuscular Volume 90.6 fL (80-100); Monocytes Absolute Auto 500 /uL (0-900); Monocytes Percent Auto 8.8 % (3-14); Neutrophils Absolute Auto 2800 /uL (1500-7000); Neutrophils Percent Auto 45.8 % (50-75); Platelet Count 240 X10^3/uL (150-400); Red Blood Cell Count 4.24 X10^6/uL (4.5-5.9); Red Cell Distribution Width 12.9 % (11.6-14.8)
[2021-03-20 12:51] LABS: BUN Creatinine Ratio 16.3 (6-22); Blood Urea Nitrogen 17 mg/dL (9-20); Calcium 9.1 mg/dL (8.4-10.2); Carbon Dioxide 30 mmol/L (22-32); Chloride 104 mmol/L (98-107); Estimated Glomerular Filt Rate > 60.0 mL/min (>60); Glucose 130 mg/dL (70-100); HEMOLYSIS 33 (0-50); Magnesium 1.7 mg/dL (1.6-2.3); Potassium 4.1 mmol/L (3.4-5.1); Sodium 139 mmol/L (137-145)
--- NOTE | 2021-03-20 14:08 | PM.PN.1 ---
Exam Vital Signs (past 8 hours): - 03/20/21 08:00 Temperature 97.7 F Pulse Rate 63 Respiratory Rate 18 Blood Pressure 134/90 Pulse Oximetry 97 Oxygen Delivery Method Room Air Oxygen Flow Rate 0 Const Other: Sitting up in bed upon my entering the room, wathcing TV, and in no apparent, acute distress. Eyes Other: No scleral icterus appreciated. Resp Other: Lungs clear to auscultation bilaterally. Cardio Other: RRR. Normal S1 and S2 heart sounds. No extra heart sounds or murmurs appreciated. GI Other: Soft, non-distended, non-tender. Bowel sounds present. Skin Other: No grossly abnormal skin lesions appreciated. Extrem Other: Left hand with bandage that is clean, dry and intact. Left hand ROM is full. Palpable and equal bilaterally radial and dorsalis pedis pulses. Objective Labs Result Diagrams: 03/20/21 12:13 03/20/21 12:13 Labs: Laboratory Results - last 24 hr 03/20/21 03/20/21 12:13 12:13 WBC 6.0 RBC 4.24 L Hgb 13.2 L Hct 38.4 L MCV 90.6 MCH 31.1 MCHC 34.3 RDW 12.9 Plt Count 240 Neut % (Auto) 45.8 L Lymph % (Auto) 36.3 Tillman % (Auto) 8.8 Eos % (Auto) 7.7 H Baso % (Auto) 1.4 Neut # (Auto) 2800 Lymph # (Auto) 2200 Tillman # (Auto) 500 Eos # (Auto) 500 H Baso # (Auto) 100 Sodium 139 Potassium 4.1 Chloride 104 Carbon Dioxide 30 BUN 17 Creatinine 1.04 Estimated GFR > 60.0 BUN/Creatinine Ratio 16.3 Glucose 130 H Calcium 9.1 Magnesium 1.7 PFSH Medical History No pertinent past medical history Patient denies medical problems Surgical History No significant past surgical history Family History Mother No active medical problems Social History household members: significant other Smoking Status: Current every day smoker alcohol intake: never substance use type: heroin, IV drugs and methamphetamine (per hospital provider notes) Assessment & Plan Assessment & Plan narrative: 40-year-old previously healthy male with recent onset of bilateral hand pain and swelling who now presents with acute pain/swelling in the left hand after a ?bite? 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 1. Left hand cellulitis, present on admission, active -worsened despite 4-5 days of oral doxycycline -CRP elevated at 3.6 with ESR of 10 and white blood count of 11 on admission.? -CRP maximal bump 6.0 trending downward -I&D left hand infection, 2nd and 5th fingers? 03/07/2021 -continue vancomycin -ECHO shows no evidence of endocarditis -cultures growing back MRSA, will need minimum two weeks IV antibiotics with vanco -2 weeks of IV antibiotics last day 03/22/21 -Ortho signed off -repeat blood cultures, no growth to date 2. Bilateral hand swelling, present on admission.? Active.? - improved COVID positive - his PCR was positive on admission.? Two PCRs 1 yesterday and 1 today are both negative DISPO needs to finish IV antibiotics through Mar 22 for 14 day course. At this point it has been unable to be arranged to get this antibiotic outside the hospital. Time Spent With Patient Critical Care time: I spent a total of [] minutes of critical care time on this patient's care today; this time is exclusive of procedural time. Quality VTE Deep Vein Thrombosis/Pulmonary Embolism Present on Admission: No
[2021-03-20 16:00] VITALS: BP 113/55; PULSE 67; RESP 16; TEMP 36.3; O2SAT 98
[2021-03-21] MEDS: HYDROMORPHONE 1 MG INJ IV ×4 (03:15→21:30)
[2021-03-21] MEDS: HYDROCODONE/ACET 5/325 TABLET 2 TAB PO ×3 (05:34→18:14)
[2021-03-21 05:36] VITALS: BP 124/82; PULSE 67; RESP 16; TEMP 36.5; O2SAT 98
[2021-03-21] MEDS: ENOXAPARIN 40 MG/0.4 ML SYRINGE SUBCUT (09:17)
[2021-03-21] MEDS: DOCUSATE 100 MG CAPSULE PO ×2 (09:17→21:30)
[2021-03-21] MEDS: SODIUM CHLORIDE 0.9% FLUSH 10 ML IV ×2 (09:19→21:30)
[2021-03-21] MEDS: VANCOMYCIN 1,500 MG/300 ML PIGGYBACK 200 MG IV ×2 (11:00→21:30)
[2021-03-21 11:46] VITALS: BP 118/77; PULSE 70; RESP 16; TEMP 36.6; O2SAT 99
--- NOTE | 2021-03-21 16:45 | PM.PN.1 ---
Subjective Subjective Interval history: The patient denies any acute complaints. He reports feeling well overall. Reports good PO intake. He is excited for discharge tomorrow. Exam Vital Signs (past 8 hours): - 03/21/21 11:46 Temperature 98 F Pulse Rate 70 Respiratory Rate 16 Blood Pressure 118/77 Pulse Oximetry 99 Oxygen Delivery Method Room Air Oxygen Flow Rate 0 Narrative Exam Narrative: Const Other: Sitting up in bed upon my entering the room, wathcing TV, and in no apparent, acute distress. Eyes Other: No scleral icterus appreciated. Resp Other: Lungs clear to auscultation bilaterally. Cardio Other: RRR. Normal S1 and S2 heart sounds. No extra heart sounds or murmurs appreciated. GI Other: Soft, non-distended, non-tender. Bowel sounds present. Skin Other: No grossly abnormal skin lesions appreciated. Extrem Other: Left hand with bandage that is clean, dry and intact. Left hand ROM is full. Palpable and equal bilaterally radial and dorsalis pedis pulses. Objective Labs Result Diagrams: 03/20/21 12:13 03/20/21 12:13 [facility] Medical History No pertinent past medical history Patient denies medical problems Surgical History No significant past surgical history Family History Mother No active medical problems Social History household members: significant other Smoking Status: Current every day smoker alcohol intake: never substance use type: heroin, IV drugs and methamphetamine (per hospital provider notes) Assessment & Plan Assessment & Plan narrative: 40-year-old previously healthy male with recent onset of bilateral hand pain and swelling who now presents with acute pain/swelling in the left hand after a ?bite? 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 1. Left hand cellulitis, present on admission, active -worsened despite 4-5 days of oral doxycycline -CRP elevated at 3.6 with ESR of 10 and white blood count of 11 on admission.? -CRP maximal bump 6.0 trending downward -I&D left hand infection, 2nd and 5th fingers? 03/07/2021 -continue vancomycin -ECHO shows no evidence of endocarditis -cultures growing back MRSA, will need minimum two weeks IV antibiotics with vanco -2 weeks of IV antibiotics last day 03/22/21 -Ortho signed off -repeat blood cultures, no growth to date 2. Bilateral hand swelling, present on admission.? Active.? - improved COVID positive - his PCR was positive on admission.? Two PCRs 1 yesterday and 1 today are both negative DISPO needs to finish IV antibiotics through Mar 22 for 14 day course. At this point it has been unable to be arranged to get this antibiotic outside the hospital. Time Spent With Patient Critical Care time: I spent a total of [] minutes of critical care time on this patient's care today; this time is exclusive of procedural time. Quality VTE Deep Vein Thrombosis/Pulmonary Embolism Present on Admission: No
[2021-03-21] MEDS: MAGNESIUM HYDROXIDE 30 ML UDC PO (18:38)
[2021-03-21 20:02] VITALS: BP 119/56; PULSE 66; RESP 18; TEMP 36.2; O2SAT 97
[2021-03-21 20:50] VITALS: PULSE 66; RESP 18; O2SAT 97
[2021-03-22] MEDS: HYDROCODONE/ACET 5/325 TABLET 2 TAB PO ×2 (03:45→08:22)
[2021-03-22] MEDS: HYDROMORPHONE 1 MG INJ IV ×2 (03:46→10:34)
[2021-03-22 04:06] VITALS: BP 97/55; PULSE 60; RESP 18; TEMP 36.6; O2SAT 98
--- NOTE | 2021-03-22 07:55 | P.DS_ITS ---
History of Present Illness History of Present Illness Date Patient Seen: 03/22/21 Chief complaint: left hand pain and swelling Narrative: This is a 40 year old male with a left hand infection. He has no known past medical history. He has recently received Ambien and hydromorphone so is struggling to communicate at 5:00 a.m. today. His girlfriend is in the room and indicates that she is not aware of any other medical history. He does have chronically swollen hands and has been complaining to her about his hands hurting for some months. He was working on a car with his hand in an area that he could not see when he felt a sudden pain that he interpreted to be a ?bite?. No insect or snake or other animal capable of biting was seen. He was seen for this in the emergency department 5 days ago and was started on doxycycline. He returns last evening with increasing pain and swelling. His CRP is 3.6 with a white blood count of 11 and a normal ESR of 10. A CT scan of the left hand shows no discrete fluid collection. He was discussed with orthopedics who recommended that he undergo an MRI today and be kept NPO pending possible need for surgery. He has never had an infection like this before but his hands are caked in grease and appear quite swollen bilaterally. Discharge Providers Provider Date of admission: 03/07/21 01:59 Discharge Date: 03/22/21 Primary care physician: Cherie Diggs MD Consults: 03/07/21 06:13 Consult to Orthopedic Surgery Routine Comment: Consulting Provider: Obdulia Cummings Reason for consultation: Hand Cellulitis Has provider been notified: Yes Discharge provider: Alan Basilio MD Summary Hospital Course Discharge Diagnosis: 1. Left hand cellulitis 2. Bilateral hand swelling COVID positive Hospital Course: 40-year-old previously healthy male with recent onset of bilateral hand pain and swelling who now presents with acute pain/swelling in the left hand after a ?bite? 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 1. Left hand cellulitis, present on admission, active He was treated for 14 days with IV vancomycin for the MRSA hand abscess/cellulitis. I saw him 14 days ago when he was admitted and compared to today he looks much, much better. His caked in grease in his hands is completely resolved. He looks like a new person, without the general sense of illness and distraction that he came in with. -worsened despite 4-5 days of oral doxycycline -CRP elevated at 3.6 with ESR of 10 and white blood count of 11 on admission.? -CRP maximal bump 6.0 trending downward -I&D left hand infection, 2nd and 5th fingers? 03/07/2021 -ECHO shows no evidence of endocarditis -Ortho signed off -repeat blood cultures, no growth to date 2. Bilateral hand swelling, present on admission.? Active.? - improved COVID positive - his PCR was positive on admission.? Status at Discharge Cognitive/behavioral status at discharge: at baseline, oriented Functional status at discharge: independent ambulation Overall status at discharge: patient is back to baseline Time Spent with Patient Time spent: Greater than 30 minutes Exam Vital Signs (past 8 hours): - 03/22/21 04:06 Temperature 97.9 F Pulse Rate 60 Respiratory Rate 18 Blood Pressure 97/55 L Pulse Oximetry 98 Oxygen Delivery Method Room Air Oxygen Flow Rate 0 Narrative Exam Narrative: Heart is regular rate and rhythm without murmur Lungs are clear to auscultation bilaterally Extremities have no ankle edema His hands now look nearly normal with most of the swelling resolved and all of the dirt and grime that was imbedded in his skin completely gone. Objective Labs Result Diagrams: 03/20/21 12:13 03/20/21 12:13 [facility] Medical History No pertinent past medical history Patient denies medical problems Surgical History No significant past surgical history Family History Mother No active medical problems Social History household members: significant other Smoking Status: Current every day smoker alcohol intake: never substance use type: heroin, IV drugs and methamphetamine (per hospital provider notes) Discharge Plan Discharge Plan Patient Disposition: Home Provider Discharge Comment: Make an appointment and follow up this week with a new primary physician at the [facility]. Discharge orders & Medications Prescriptions: New hydrocodone-acetaminophen 5-325 mg Tablet 1 tab PO Q4-8H PRN (Reason: Pain, Severe (7-10)) Qty: 35 7RF Discontinued doxycycline hyclate 100 mg capsule 100 mg PO BID Qty: 20 0RF Follow up/Referrals: Cherie Diggs MD [Primary Care Provider] - Diet/Activity/Treatments Diet: Diet as Tolerated Visit Report/Discharge Packet Instructions: DI for Incision and Drainage of a Joint, DI for Peripherally Inserted Central Catheter Removal, DI for COVID-19 (Suspected or Confirmed ) Discharge Data Primary Care Provider: Cherie Diggs Quality VTE Deep Vein Thrombosis/Pulmonary Embolism Present on Admission: No
[2021-03-22] MEDS: DOCUSATE 100 MG CAPSULE PO (08:22)
[2021-03-22] MEDS: SODIUM CHLORIDE 0.9% FLUSH 10 ML IV (08:23)
[2021-03-22 08:43] VITALS: BP 112/63; PULSE 63; RESP 16; TEMP 37.1; O2SAT 97
--- NOTE | 2021-03-22 12:23 | PC.NURSE ---
Discharge. Pt feels ready to d/c to home. D/c instructions reviewed with pt. Hand is much inmproved and he feels he can care for same at home. PICC removed intact. Rx given for vicodin. Questions answered.
== END 2021-03-22 12:05 | disposition home or self-care (01) | DRG 316 ==
LOC: ED 01:55 → AC 02:00
PROVIDERS: Internal Medicine; Orthopaedic Surgery Foot and Ankle Surgery; Student in an Organized Health Care Education/Training Program; Admitting Provider Family Medicine; Emergency Provider Emergency Medicine; PCP Family Medicine; Referring Provider Emergency Medicine; Visit Provider Family Medicine
PROC: 0LD80ZZ Extraction of Left Hand Tendon, Open Approach (ICD-10-PCS; principal; 2021-03-07 18:00)
DX: M65.142 Other infective (teno)synovitis, left hand (principal); U07.1 COVID-19; L03.114 Cellulitis of left upper limb; B95.62 Methicillin resistant Staphylococcus aureus infection as the cause of diseases classified elsewhere; F17.200 Nicotine dependence, unspecified, uncomplicated
CPT/HCPCS: 36415; 36592; 71045; 73201; 73220; 80048; 80053; 80202; 82565; 83605; 83735; 84145; 85025; 85027; 85651; 86140; 86277; 87040; 87070; 87075; 87077; 87147; 87150; 87186; 87205; 87635; 93306; 94640; 94760; 96365; 96367; 96375; 99284; 99406; C9803; A9579; J0171; J0696; J1170; J1642; J1650; J1885; J2060; J2310; J2704; J3010; J7613; Q9967

== ENCOUNTER 2021-07-17 18:30 | Observation (INO) | payer OTHER, MEDICAID, SELFPAY ==
[2021-03-07 02:43] VITALS: BMI 28.8
[2021-07-17 18:51] VITALS: BP 114/69; PULSE 92; RESP 18; TEMP 35.5; O2SAT 99; BMI 29.5
--- NOTE | 2021-07-17 18:55 | DI.RAD.S_ITS ---
PROCEDURE: XR FINGER RT MIN 2V INDICATIONS: smashed finger, swollen and infected TECHNIQUE: AP hand, 2 views of the 5th finger(s) acquired. COMPARISON: [facility], , FINGER LT, 04/22/2014, 8:13. FINDINGS: Bones: No fractures or dislocations. No suspicious bony lesions. Soft tissues: No suspicious soft tissue calcifications. Soft tissue swelling surrounding distal portion of 5th digit is seen. IMPRESSION: No gross acute 5th finger fracture or dislocation. Diffuse soft tissue swelling surrounding 5th finger. Dictated by: Richi No M.D. on 07/17/2021 at 19:14 Approved by: Richi No M.D. on 07/17/2021 at 19:15
[2021-07-17 20:32] LABS: Add Manual Diff / Slide Review NO; Basophils Absolute Auto 100 /uL (0-100); Basophils Percent Auto 0.6 % (0-2); Eosinophils Absolute Auto 400 /uL (0-450); Eosinophils Percent Auto 3.1 % (2-4); Hematocrit 43.3 % (41-53); Lymphocytes Absolute Auto 1800 /uL (1100-4500); Lymphocytes Percent Auto 14.5 % (25-40); Mean Corpuscular HGB Conc 34.6 % (30-36); Mean Corpuscular Hemoglobin 30.9 PG (26-34); Mean Corpuscular Volume 89.3 fL (80-100); Monocytes Absolute Auto 1000 /uL (0-900); Monocytes Percent Auto 7.8 % (3-14); Neutrophils Absolute Auto 9300 /uL (1500-7000); Platelet Count 290 X10^3/uL (150-400); Red Blood Cell Count 4.85 X10^6/uL (4.5-5.9); Red Cell Distribution Width 13.4 % (11.6-14.8); White Blood Cell Count 12.5 X10^3/uL (4.5-11.0)
[2021-07-17 20:43] LABS: Lactate (Lactic Acid) 1.2 mmol/L (0.7-2.1)
[2021-07-17 20:44] LABS: Alanine Aminotransferase 75 IU/L (<50); Albumin 4.4 g/dL (3.5-5.0); Albumin Globulin Ratio 1.1 (1.0-2.8); Alkaline Phosphatase 103 U/L (38-126); Aspartate Aminotransferase 54 IU/L (17-59); BUN Creatinine Ratio 15.5 (6-22); Bilirubin Total 0.7 mg/dL (0.2-1.3); Blood Urea Nitrogen 16 mg/dL (9-20); Carbon Dioxide 31 mmol/L (22-32); Chloride 101 mmol/L (98-107); Estimated Glomerular Filt Rate > 60 mL/min (>60); Globulin 4.1 g/dL (1.7-4.1); Glucose 114 mg/dL (70-100); HEMOLYSIS < 15 (0-50); Potassium 4.1 mmol/L (3.4-5.1); Sodium 138 mmol/L (137-145); Total Protein 8.5 g/dL (6.3-8.2)
[2021-07-17 21:01] LABS: Procalcitonin 0.12 ng/mL (<0.5)
--- NOTE | 2021-07-17 22:14 | ED_ITS ---
HPI - Wound/Laceration General Chief Complaint: Wound/Laceration Stated Complaint: Non traumatic rt hand infection Time Seen by Provider: 07/17/21 20:06 History of Present Illness HPI narrative: Patient is a 41-year-old male history of IVDA previous MRSA infection presenting today with right 5th finger drainage and redness. He says he smashed it between the tire and something else while working on a car. He passed out for an unknown amount of time. His significant other has been working but now sees his finger and brought him to the emergency department. He is currently afebrile. He has significant pain and swelling in his right hand in little finger. Patient is currently very sleepy overall a poor historian. He previously was admitted to the hospital February 2021 for something similar, at that time initially said he was bit by a snake but later confessed that he injected it. He was admitted for 14 days with MRSA and he did 14 days of IV vancomycin. Related Data Previous Rx's Medication Instructions Recorded hydrocodone 5 mg-acetaminophen 325 1 tab PO Q4-8H PRN #35 tab 03/22/21 mg tablet Allergies Allergy/AdvReac Type Severity Reaction Status Date / Time Sulfa (Sulfonamide Allergy Unknown Verified 07/17/21 18:54 Antibiotics) [SULFA (SULFONAMIDE ANTIBIOTICS)] Review of Systems Review of Systems ROS Unobtainable: All systems reviewed & are unremarkable except as noted in HPI and below Patient History Medical History No pertinent past medical history Patient denies medical problems Surgical History No significant past surgical history Family History Mother No active medical problems Social History household members: significant other Smoking Status: Current every day smoker alcohol intake: never substance use type: heroin, IV drugs and methamphetamine (per hospital provider notes) Smoking Status: Current every day smoker alcohol intake frequency: holidays/special occasions only Substance Use Type: crack/cocaine, heroin and methamphetamine Exam Initial Vital Signs Initial Vital Signs: Vital Signs Temperature 96 F L 07/17/21 18:51 Pulse Rate 92 H 07/17/21 18:51 Respiratory Rate 18 06/02/22 18:51 Blood Pressure 114/69 07/17/21 18:51 Pulse Oximetry 99 07/17/21 18:51 GENERAL: Sleepy but arousable 41-year-old male HEENT: Head atraumatic,EOMI, pupils reactive, face symmetric, moist mucous membranes CARDIOVASCULAR: Regular rate and rhythm without murmurs, rubs or gallops. RESPIRATORY: Breath sounds equal bilaterally, no wheezes rales or rhonchi. EXTREMITIES: Normal range of motion, no clubbing or edema. Neurovascularly intact Right hand 5th finger is held in extension significantly tender to touch NEUROLOGICAL: Alert and oriented x3, no gross deficits SKIN: Right hand is swollen 5th finger is completely erythematous. He has drainage distally and laterally next to the 4th finger. With palpation more drainage comes out more. finger is exquisitely tender Course Orders Ordered: ED Orders 07/17/21 22:36 Urine Drug Screen, Rapid Stat 07/17/21 22:48 COVID19 -Nasal RAPID/Pre-Proc Stat Wound Culture and Gram Stain Stat Acetaminophen (Acetaminophen 325 Mg Tablet) 650 mg PO Q6HR [facility] Last Admin: 07/18/21 06:02 Dose: 650 mg Documented by: NEHAL Hydrocodone Bitart/Acetaminophen (Hydrocodone/Acet 5/325 Tablet) 1 tab PO Q4HR PRN PRN Reason: Pain, Moderate (4-6) Last Admin: 07/18/21 03:00 Dose: 1 tab Documented by: NEHAL Gabapentin (Gabapentin 100 Mg Capsule) 100 mg PO Q12HR [facility] Hydromorphone HCl (Hydromorphone 1 Mg Inj) 1 mg IV Q4H PRN PRN Reason: Pain, Moderate (4-6) Last Admin: 07/18/21 03:59 Dose: 1 mg Documented by: NEHAL Sodium Chloride (Normal Saline 0.9%) 1,000 mls @ 100 mls/hr IV CONT [facility] Last Admin: 07/18/21 01:39 Dose: 100 mls/hr Documented by: NEHAL Piperacillin Sod/Tazobactam (Sod 3.375 gm/ Sodium Chloride) 100 mls @ 25 mls/hr IV Q8H [facility] Last Infusion: 07/18/21 05:52 Dose: 0 mls/hr Documented by: Admin: 07/18/21 01:44 Dose: 25 mls/hr Documented by: NEHAL Morphine Sulfate (Morphine 2 Mg/Ml Inj) 2 mg IV Q4H PRN PRN Reason: Breakthrough pain only (8-10) Last Admin: 07/18/21 01:34 Dose: 2 mg Documented by: NEHAL Naloxone HCl (Naloxone 0.4 Mg/Ml Vial) 0.2 mg IV Q2MIN PRN PRN Reason: Opiate Reversal Ondansetron HCl (Ondansetron 4 Mg/2 Ml Inj) 4 mg IV Q8HR PRN PRN Reason: Nausea And Vomiting Pantoprazole Sodium (Pantoprazole Dr 20 Mg Tablet) 20 mg PO 0600 [facility] Last Admin: 07/18/21 06:02 Dose: 20 mg Documented by: NEHAL Discontinued Medications Ceftriaxone Sodium 2,000 mg/ (Sodium Chloride) 100 mls @ 200 mls/hr IV NOW ONE Stop: 07/17/21 22:35 Last Infusion: 07/17/21 23:14 Dose: 0 mls/hr Documented by: Admin: 07/17/21 22:43 Dose: 200 mls/hr Documented by: ANAMARIA Vancomycin HCl (Vancomycin) 1,250 mg in 250 mls @ 250 mls/hr IV NOW ONE Stop: 07/17/21 23:35 Last Admin: 07/17/21 23:21 Dose: Not Given Documented by: NEHAL Vancomycin HCl 1,750 mg/ (Sodium Chloride) 500 mls @ 250 mls/hr IV NOW ONE Stop: 07/17/21 23:08 Last Admin: 07/17/21 23:33 Dose: Not Given Documented by: NEHAL Vancomycin HCl (Vancomycin) 1,000 mg in 200 mls @ 200 mls/hr IV NOW ONE Stop: 07/18/21 00:29 Last Infusion: 07/18/21 00:49 Dose: 0 mls/hr Documented by: Admin: 07/17/21 23:32 Dose: 200 mls/hr Documented by: NEHAL Vancomycin HCl (Vancomycin) 750 mg in 150 mls @ 150 mls/hr IV NOW ONE Stop: 07/18/21 01:29 Last Infusion: 07/18/21 02:31 Dose: 0 mls/hr Documented by: Admin: 07/18/21 00:49 Dose: 150 mls/hr Documented by: NEHAL Vital Signs Vital signs: Vital Signs - 8 hr 07/17/21 23:42 07/18/21 00:00 Pulse Rate 75 70 Pulse Oximetry 98 98 MDM - Wound/Laceration Lab Data Result diagrams: 07/17/21 20:20 07/17/21 20:20 Labs: Lab Results 07/17/21 07/17/21 07/17/21 Range/Units 20:20 20:20 20:20 WBC 12.5 H (4.5-11.0) X10^3/uL RBC 4.85 (4.5-5.9) X10^6/uL Hgb 15.0 (13.5-17.5) g/dL Hct 43.3 (41-53) % MCV 89.3 (80-100) fL MCH 30.9 (26-34) PG MCHC 34.6 (30-36) % RDW 13.4 (11.6-14.8) % Plt Count 290 (150-400) X10^3/uL Neut % (Auto) 74.0 (50-75) % Lymph % (Auto) 14.5 L (25-40) % [place] % (Auto) 7.8 (3-14) % Eos % (Auto) 3.1 (2-4) % Baso % (Auto) 0.6 (0-2) % Neut # (Auto) 9300 H (1703-9495) /uL Lymph # (Auto) 1800 (1029-7395) /uL [place] # (Auto) 1000 H (0-900) /uL Eos # (Auto) 400 (0-450) /uL Baso # (Auto) 100 (0-100) /uL Sodium 138 (137-145) mmol/L Potassium 4.1 (3.4-5.1) mmol/L Chloride 101 (98-107) mmol/L Carbon Dioxide 31 (22-32) mmol/L BUN 16 (9-20) mg/dL Creatinine 1.03 (0.66-1.25) mg/dL Estimated GFR > 60 (>60) mL/min BUN/Creatinine Ratio 15.5 (6-22) Glucose 114 H (70-100) mg/dL Lactate 1.2 (0.7-2.1) mmol/L Calcium 9.0 (8.4-10.2) mg/dL Total Bilirubin 0.7 (0.2-1.3) mg/dL AST 54 (17-59) IU/L ALT 75 H (<50) IU/L Alkaline Phosphatase 103 (38-126) U/L Total Protein 8.5 H (6.3-8.2) g/dL Albumin 4.4 (3.5-5.0) g/dL Globulin 4.1 (1.7-4.1) g/dL Albumin/Globulin Ratio 1.1 (1.0-2.8) Procalcitonin (<0.5) ng/mL SARS-CoV-2 (PCR) (Negative) 07/17/21 07/17/21 Range/Units 20:20 22:48 WBC (4.5-11.0) X10^3/uL RBC (4.5-5.9) X10^6/uL Hgb (13.5-17.5) g/dL Hct (41-53) % MCV (80-100) fL MCH (26-34) PG MCHC (30-36) % RDW (11.6-14.8) % Plt Count (150-400) X10^3/uL Neut % (Auto) (50-75) % Lymph % (Auto) (25-40) % [place] % (Auto) (3-14) % Eos % (Auto) (2-4) % Baso % (Auto) (0-2) % Neut # (Auto) (6355-4863) /uL Lymph # (Auto) (0872-8881) /uL [place] # (Auto) (0-900) /uL Eos # (Auto) (0-450) /uL Baso # (Auto) (0-100) /uL Sodium (137-145) mmol/L Potassium (3.4-5.1) mmol/L Chloride (98-107) mmol/L Carbon Dioxide (22-32) mmol/L BUN (9-20) mg/dL Creatinine (0.66-1.25) mg/dL Estimated GFR (>60) mL/min BUN/Creatinine Ratio (6-22) Glucose (70-100) mg/dL Lactate (0.7-2.1) mmol/L Calcium (8.4-10.2) mg/dL Total Bilirubin (0.2-1.3) mg/dL AST (17-59) IU/L ALT (<50) IU/L Alkaline Phosphatase (38-126) U/L Total Protein (6.3-8.2) g/dL Albumin (3.5-5.0) g/dL Globulin (1.7-4.1) g/dL Albumin/Globulin Ratio (1.0-2.8) Procalcitonin 0.12 (<0.5) ng/mL SARS-CoV-2 (PCR) Negative (Negative) Imaging Data Extremity x-ray #1: Radiologist's Impression: tient: Remy Payne MR#: [id number] : 1980 Acct:[id number] Age/Sex: 41 / M Date of Service: 07/17/21 Loc: ED Accession Number: [id number] ?? Procedure: XR finger RT min 2V Ordering Provider: Kalyn Jimenez D.O. PROCEDURE:? XR FINGER RT MIN 2V ? INDICATIONS:? smashed finger, swollen and infected ? TECHNIQUE:? AP hand, 2 views of the 5th finger(s) acquired.? ? COMPARISON:? [facility], , FINGER LT, 04/22/2014, 8:13. ? FINDINGS:? ? Bones:? No fractures or dislocations.? No suspicious bony lesions.? ? Soft tissues:? No suspicious soft tissue calcifications.? Soft tissue swelling surrounding distal portion of 5th digit is seen. ? IMPRESSION:? No gross acute 5th finger fracture or dislocation.? Diffuse soft tissue swelling surrounding 5th finger. ? ? Dictated by: Richi No M.D. on 07/17/2021 at 19:14 ? ? Approved by: Richi No M.D. on 07/17/2021 at 19:15 ? [facility] Narrative Medical decision making narrative: Patient has infection in right little finger. Concern for flexor tenosynovitis along with finger abscess. He presented with a similar presentation previously who requiring OR drainage. 1130pm Dr. Elias OR tomorrow, end of day. Also states that previous visitor probably brought him medication during his last visits and cautions allowing visitors. No concern for compartment Dr. Mackey, accepts patient Discharge Plan Departure Patient Disposition: Admitted As Inpatient Clinical Impression: Flexor tenosynovitis of finger, Abscess Admit Date/Time: 07/18/21 00:13 Admit Provider: Jennifer Mackey
[2021-07-17] MEDS: cefTRIAXone 2,000 MG in SODIUM CHLORIDE 0.9% 100 ML 200 MG IV (22:43)
[2021-07-17 23:18] LABS: COVID19 -Nasal RAPID Negative (Negative)
[2021-07-17] MEDS: VANCOMYCIN 1,000 MG/200 ML PIGGYBACK 200 MG IV (23:32)
[2021-07-17 23:42] VITALS: PULSE 75; O2SAT 98
[2021-07-18] VITALS (17 sets, daily range): BP systolic 117–150; BP diastolic 68–91; PULSE 60–82; RESP 10–18; TEMP 36.1–36.8; O2SAT 96–100; BMI 31.8
[2021-07-18] MEDS: VANCOMYCIN 750 MG/150 ML PIGGYBACK 150 MG IV (00:49)
--- NOTE | 2021-07-18 01:12 | PM.HP.1 ---
History of Present Illness History of Present Illness Date Patient Seen: 07/18/21 Date of Onset of Symptoms: 07/15/21 Chief complaint: Non traumatic rt hand infection Narrative: 41-year-old male came to the ER with worsening of the right hand swelling, noted to have significant ulcer and also pus draining. Patient is a poor historian, not interested in having long conversations at this time. He does seem to be very sleepy. This is this even started couple of days ago and continues to get worse, now having heparin discharge in significant pain with hand movement. Initially pain was graded at a rate of 8/10 now improving. Patient does seem to be comfortable. Probably had some fevers yesterday. Restriction of final meds because of the pain. He had similar issues in the past was appropriately drained with surgical intervention, improved. History of IV drug abuse noted. Denies any headaches, nausea, no vomiting, no chest pain. Patient History Medical History No pertinent past medical history Patient denies medical problems Surgical History No significant past surgical history Comment: Had a pyloric stenosis surgery Surgery for Broken jaw Family & Social History Family History Mother No active medical problems Social History: household members significant other Safety & Behavioral: Feels Safe in Current Yes Environment Been Physically Hurt or No Threatened By a Person Tobacco & Substance use: Smoking Status Current every day smoker alcohol intake never alcohol intake frequency holiday/special occasion Substance Use Type crack/cocaine,heroin,methamphetamine Meds Home Medications and Allergies Home Medications Medication Instructions Recorded Confirmed Type hydrocodone 5 mg-acetaminophen 325 1 tab PO Q4-8H PRN #35 tab 03/22/21 Rx mg tablet Allergies Allergy/AdvReac Type Severity Reaction Status Date / Time Sulfa (Sulfonamide Allergy Unknown Verified 07/17/21 18:54 Antibiotics) [SULFA (SULFONAMIDE ANTIBIOTICS)] Review of Systems Review of Systems Narrative: Constitutional, ENT, eyes, cardiovascular, respiratory, GI, genitourinary, skin, neurologic, psychiatric systems has been reviewed. All systems reviewed, negative as other than as mentioned above in HPI. Exam Vital Signs (past 8 hours): - 07/17/21 18:51 Temperature 96 F L Pulse Rate 92 H Respiratory Rate 18 Blood Pressure 114/69 Pulse Oximetry 99 Oxygen Delivery Method Room Air Narrative Exam Narrative: Patient does seem to be little bit uncomfortable on examination. Right upper extremity, right hand positive for swelling, redness, ulceration of the finger, drainage noted. Peripheral pulses in both hands felt. Is still able to move his fingers but limited because of the pain. Constitutional, ENT, eyes, cardiovascular, respiratory, GI, neurologic, skin, psychiatric, organ system examination done, negative other than as mentioned above. Objective Labs Result Diagrams: 07/17/21 20:20 07/17/21 20:20 Labs: Laboratory Results - last 24 hr 07/17/21 07/17/21 07/17/21 20:20 20:20 20:20 WBC 12.5 H RBC 4.85 Hgb 15.0 Hct 43.3 MCV 89.3 MCH 30.9 MCHC 34.6 RDW 13.4 Plt Count 290 Neut % (Auto) 74.0 Lymph % (Auto) 14.5 L [place] % (Auto) 7.8 Eos % (Auto) 3.1 Baso % (Auto) 0.6 Neut # (Auto) 9300 H Lymph # (Auto) 1800 [place] # (Auto) 1000 H Eos # (Auto) 400 Baso # (Auto) 100 Sodium 138 Potassium 4.1 Chloride 101 Carbon Dioxide 31 BUN 16 Creatinine 1.03 Estimated GFR > 60 BUN/Creatinine Ratio 15.5 Glucose 114 H Lactate 1.2 Calcium 9.0 Total Bilirubin 0.7 AST 54 ALT 75 H Alkaline Phosphatase 103 Total Protein 8.5 H Albumin 4.4 Globulin 4.1 Albumin/Globulin Ratio 1.1 Procalcitonin SARS-CoV-2 (PCR) 07/17/21 07/17/21 20:20 22:48 WBC RBC Hgb Hct MCV MCH MCHC RDW Plt Count Neut % (Auto) Lymph % (Auto) [place] % (Auto) Eos % (Auto) Baso % (Auto) Neut # (Auto) Lymph # (Auto) [place] # (Auto) Eos # (Auto) Baso # (Auto) Sodium Potassium Chloride Carbon Dioxide BUN Creatinine Estimated GFR BUN/Creatinine Ratio Glucose Lactate Calcium Total Bilirubin AST ALT Alkaline Phosphatase Total Protein Albumin Globulin Albumin/Globulin Ratio Procalcitonin 0.12 SARS-CoV-2 (PCR) Negative Assessment & Plan Assessment and plan (1) Cellulitis of hand: Status: Acute (2) Flexor tenosynovitis of finger: Status: Acute Plan Admit patient as an inpatient status with an expected length of stay greater than 2 days Patient was already given IV vancomycin and ceftriaxone in the ER, will continue Zosyn during hospitalization Patient is high risk given drug use, IV vancomycin will be continued pharmacy to dose Blood cultures are pending. Discussed with ortho, surgery tomorrow. No further imaging needed at this time as discussed with orthopedic. SCDs for DVT prophylaxis, ppi for GI prophylaxis Appropriate pain control, concern for drug abuse, cautioned. Care plan extensively discussed with the patient, offered to talk to family member. Further discharge disposition as per Ortho after surgical intervention Patient may need long-term antibiotics. Time Spent With Patient Critical Care time: I spent a total of [] minutes of critical care time on this patient's care today; this time is exclusive of procedural time.
[2021-07-18] MEDS: MORPHINE 2 MG/ML INJ IV (01:34)
[2021-07-18] MEDS: SODIUM CHLORIDE 0.9% 1,000 ML 100 ML IV (01:39)
[2021-07-18] MEDS: PIPERACILLIN/TAZO 3.375 GM in SODIUM CHLORIDE 0.9% 100 ML IV ×3 (01:44→17:53)
[2021-07-18] MEDS: HYDROCODONE/ACET 5/325 TABLET 1 TAB PO ×2 (03:00→10:22)
[2021-07-18] MEDS: HYDROMORPHONE 1 MG INJ IV ×3 (03:59→23:47)
[2021-07-18] MEDS: ACETAMINOPHEN 325 MG TABLET 650 MG PO ×4 (06:02→23:45)
[2021-07-18] MEDS: PANTOPRAZOLE DR 20 MG TABLET PO (06:02)
[2021-07-18 07:18] LABS: INR 1.1 (0.9-1.3); Prothrombin Time 11.9 SECONDS (10.1-12.7)
--- NOTE | 2021-07-18 07:34 | P.CONS_ITS ---
History of Present Illness Consult details Date Patient Seen: 07/18/21 Time Patient Seen: 07:34 Chief complaint: Non traumatic rt hand infection Reason for consult: Flexor tenosynovitis right small finger, history of IV drug use, MRSA Requesting provider: Kalyn Jimenez Narrative: 41-year-old male drug a painful right. Been going on for at least a few worse. Patient is sleepy in the ER when seen and does not elaborate history further had mentioned to the ER he may crushed a. Of note he was previously in the hospital in February for flexor tenosynovitis of the left small finger which he 1st endorsed a snake bite and then later admitted to injection drug use. He had an I&D and IV vancomycin at that time. Endorses pain swelling and difficulty moving the finger subjective fever and chills. He is found to have a elevated white count 12.5 in the ER. Meds Home Medications and Allergies Home Medications Medication Instructions Recorded Confirmed Type hydrocodone 5 mg-acetaminophen 325 1 tab PO Q4-8H PRN #35 tab 03/22/21 Rx mg tablet Allergies Allergy/AdvReac Type Severity Reaction Status Date / Time Sulfa (Sulfonamide Allergy Unknown Verified 07/17/21 18:54 Antibiotics) [SULFA (SULFONAMIDE ANTIBIOTICS)] Review of Systems Review of Systems Narrative: Subjective fevers and chills complains of the pain related to right hand otherwise negative and limited due to patient participation ROS: Yes All systems reviewed with the patient and are negative except as otherwise documented Exam Vital Signs (past 8 hours): - 07/17/21 23:42 07/18/21 00:00 07/18/21 00:30 Pulse Rate 75 70 69 Respiratory Rate Blood Pressure Pulse Oximetry 98 98 96 07/18/21 04:30 Pulse Rate 69 Respiratory Rate 16 Blood Pressure 122/70 Pulse Oximetry 99 Oxygen Delivery Method Room Air Narrative Exam Narrative: General alert oriented but sleepy. Responds appropriately to questions, does not elaborate For history exam unlabored on room air. Lungs clear to auscultation CV regular rate and rhythm Musculoskeletal exam left upper extremity demonstrates mild flexion contracture small finger healed previous surgical incisions. No tenderness to palpation no appearance of acute infection Right upper extremity: Fusiform swelling small finger with a draining wound at the radial and distal mid axial line. Tenderness with passive stretch and along the flexor tendon sheath. Also moderate swelling dorsally. No streaking into home. Positive [place] signs. Global mild swelling of the ulnar hand without any fluctuance within the palm. Palpable radial pulses. Forearm compartments are soft. Objective Imaging X-ray right hand: My impression: No fractures. Soft tissue swelling at the 5th finger right hand Radiologist's impression: Soft tissue swelling small finger right hand Labs Result Diagrams: 07/17/21 20:20 07/17/21 20:20 Labs: Laboratory Results - last 24 hr 07/17/21 07/17/21 07/17/21 20:20 20:20 20:20 WBC 12.5 H RBC 4.85 Hgb 15.0 Hct 43.3 MCV 89.3 MCH 30.9 MCHC 34.6 RDW 13.4 Plt Count 290 Neut % (Auto) 74.0 Lymph % (Auto) 14.5 L [place] % (Auto) 7.8 Eos % (Auto) 3.1 Baso % (Auto) 0.6 Neut # (Auto) 9300 H Lymph # (Auto) 1800 [place] # (Auto) 1000 H Eos # (Auto) 400 Baso # (Auto) 100 PT INR Sodium 138 Potassium 4.1 Chloride 101 Carbon Dioxide 31 BUN 16 Creatinine 1.03 Estimated GFR > 60 BUN/Creatinine Ratio 15.5 Glucose 114 H Lactate 1.2 Calcium 9.0 Total Bilirubin 0.7 AST 54 ALT 75 H Alkaline Phosphatase 103 Total Protein 8.5 H Albumin 4.4 Globulin 4.1 Albumin/Globulin Ratio 1.1 Procalcitonin SARS-CoV-2 (PCR) 07/17/21 07/17/21 07/18/21 20:20 22:48 04:45 WBC RBC Hgb Hct MCV MCH MCHC RDW Plt Count Neut % (Auto) Lymph % (Auto) [place] % (Auto) Eos % (Auto) Baso % (Auto) Neut # (Auto) Lymph # (Auto) [place] # (Auto) Eos # (Auto) Baso # (Auto) PT 11.9 INR 1.1 Sodium Potassium Chloride Carbon Dioxide BUN Creatinine Estimated GFR BUN/Creatinine Ratio Glucose Lactate Calcium Total Bilirubin AST ALT Alkaline Phosphatase Total Protein Albumin Globulin Albumin/Globulin Ratio Procalcitonin 0.12 SARS-CoV-2 (PCR) Negative [facility] Medical History No pertinent past medical history Patient denies medical problems Surgical History No significant past surgical history Family History Mother No active medical problems Social History household members: significant other Tobacco & Substance Use Smoking Status: Current every day smoker alcohol intake: never substance use type: heroin, IV drugs and methamphetamine (per hospital provider notes) Assessment & Plan Assessment and plan (1) Flexor tenosynovitis of finger: Status: Acute Plan Patient has an exam consistent with flexor tenosynovitis of the right small finger. He previously had a flexor tenosynovitis of the left small finger 7 months ago. He has history of IV drug use. His allergy list antibiotics. Cultures were taken in the ER. He will be scheduled for I&D of his right small finger flexor tenosynovitis. Discussed risks alternatives and benefits to the surgery. Discussed with infection there may be requirement for additional debridement and or wound care. We discussed stiffness is common after these types of infections and will start early range of motion to help with this. He will be admitted to the hospital team started on IV antibiotics and these will be tailored as appropriate based on cultures. NPO for OR today. The risks and benefits of the procedure have been discussed with the patient even opportunity to ask questions. The risks of surgery include but are not limited to infection, stiffness, persistence of pain, damage to nerves and blood vessels, need for additional procedures, DVT, PE, cardiopulmonary complications and . The patient expressed a thorough understanding of the risks and benefits of surgery and has elected to proceed. Consent was signed the site was marked COVID-19 COVID-19 status: Negative Result date/Date tested (Pos, Neg/Pending): 07/17/21 Time Spent With Patient Time with patient: less than 30 minutes Critical Care time: I spent a total of [] minutes of critical care time on this patient's care today; this time is exclusive of procedural time.
[2021-07-18] MEDS: VANCOMYCIN 1,000 MG/200 ML PIGGYBACK 200 MG IV ×2 (09:04→16:32)
--- NOTE | 2021-07-18 10:24 | PC.NURSE ---
1005 pt up to restroom, ambulatory steady gate, rn asked patient for urine sample and provided cup to pt but pt refused sample. 1020 pt request pain medication, prn meds reviewed for pain and meds given
[2021-07-18] MEDS: GABAPENTIN 100 MG CAPSULE PO ×2 (12:06→23:46)
--- NOTE | 2021-07-18 17:16 | PM.PN.1 ---
Subjective Subjective Interval history: Daily hospitals visit. Main complaint is pain right hand and would like an extra dose of medication. No problems with nausea vomiting or diaphoresis. No abdominal pain constipation or diarrhea. No chest pain. Exam Vital Signs (past 8 hours): - 07/18/21 09:24 07/18/21 12:17 Temperature 98.1 F Pulse Rate 80 61 Respiratory Rate 18 17 Blood Pressure 130/74 118/74 Pulse Oximetry 98 97 Oxygen Delivery Method Room Air Oxygen Flow Rate 0 Narrative Exam Narrative: Patient alert oriented to time place and person HEENT: Pupils equal reactive to light extraocular movements normal Cardiovascular: Heart sounds normal. Respiratory: Clear to auscultation Gastrointestinal: Bowel sounds normal. Nontender. Extremities: Swelling right hand with tenderness in general. Neuro: Normal sensation of all extremities. Objective ECG Impression: Labs Result Diagrams: 07/17/21 20:20 07/17/21 20:20 Labs: Laboratory Results - last 24 hr 07/17/21 07/17/21 07/17/21 20:20 20:20 20:20 WBC 12.5 H RBC 4.85 Hgb 15.0 Hct 43.3 MCV 89.3 MCH 30.9 MCHC 34.6 RDW 13.4 Plt Count 290 Neut % (Auto) 74.0 Lymph % (Auto) 14.5 L [place] % (Auto) 7.8 Eos % (Auto) 3.1 Baso % (Auto) 0.6 Neut # (Auto) 9300 H Lymph # (Auto) 1800 [place] # (Auto) 1000 H Eos # (Auto) 400 Baso # (Auto) 100 PT INR Sodium 138 Potassium 4.1 Chloride 101 Carbon Dioxide 31 BUN 16 Creatinine 1.03 Estimated GFR > 60 BUN/Creatinine Ratio 15.5 Glucose 114 H Lactate 1.2 Calcium 9.0 Total Bilirubin 0.7 AST 54 ALT 75 H Alkaline Phosphatase 103 Total Protein 8.5 H Albumin 4.4 Globulin 4.1 Albumin/Globulin Ratio 1.1 Procalcitonin SARS-CoV-2 (PCR) 07/17/21 07/17/21 07/18/21 20:20 22:48 04:45 WBC RBC Hgb Hct MCV MCH MCHC RDW Plt Count Neut % (Auto) Lymph % (Auto) [place] % (Auto) Eos % (Auto) Baso % (Auto) Neut # (Auto) Lymph # (Auto) [place] # (Auto) Eos # (Auto) Baso # (Auto) PT 11.9 INR 1.1 Sodium Potassium Chloride Carbon Dioxide BUN Creatinine Estimated GFR BUN/Creatinine Ratio Glucose Lactate Calcium Total Bilirubin AST ALT Alkaline Phosphatase Total Protein Albumin Globulin Albumin/Globulin Ratio Procalcitonin 0.12 SARS-CoV-2 (PCR) Negative COUNT INCLUDES THE [facility] Medical History No pertinent past medical history Patient denies medical problems Surgical History No significant past surgical history Family History Mother No active medical problems Social History household members: significant other Smoking Status: Current every day smoker alcohol intake: current substance use type: heroin, IV drugs and methamphetamine (per hospital provider notes) Assessment & Plan Assessment & Plan narrative: 41-year-old male came to the ER with worsening of the right hand swelling, noted to have significant ulcer and also pus draining.? 1) pain and swelling of the right hand infected with pus discharge on presentation. Pending ortho debridement in the OR. 2) pain control. Patient indicating not completely effective. Extra dose of hydromorphone 0.5 mg IV ordered for now. 4) cultures of right hand and blood are still pending. OR procedure pending today. Follow labs in the morning and follow cultures. Time Spent With Patient Critical Care time: I spent a total of [] minutes of critical care time on this patient's care today; this time is exclusive of procedural time. Quality VTE Deep Vein Thrombosis/Pulmonary Embolism Present on Admission: No
[2021-07-18] MEDS: LACTATED RINGERS 1,000 ML 42 ML IV ×2 (19:33→21:56)
--- NOTE | 2021-07-18 19:43 | SUR.OPER ---
Supine on padded OR bed, head on pillow, arms secured on padded arm boards at <90 degrees abduction, legs uncrossed, safety belt at thigh, tape over blanket over lower legs.
--- NOTE | 2021-07-18 19:46 | PC.NURSE ---
Pt is AxOx4, independent. Pt arrived to the unit around 1130 and pt has been NPO since for possible I&D this afternoon. VSS, pt c/o pain on R hand and recieved PRN Dilaudid IV1mg around 18 with good effect. Pt started c/o hunger and threatening the RN that he'll leave if he can't have any food. Pt started yelling, cussing and screaming in the room when RN told him that he is NPO because of surger. Pt got so angry started throwing things in the room. AMA paper brought to the room and pt stated that he'll stay if he can brush his teeth. Thus, pt stayed and went for surgery around 1900. No other changes.
--- NOTE | 2021-07-18 21:46 | PM.OP.1 ---
Operative Date/Time/Diagnoses Date of procedure: 07/18/21 Time of procedure: 21:00 Pre-op diagnosis: Flexor tenosynovitis right small finger M65.9 Abscess small finger Post-op diagnosis: same Procedure & Clinicians Procedure: I&D finger abscess and irrigation flexor tendon sheath for Genex flexor tenosynovitis CPT code 34496-J2 Same procedure as scheduled: Yes Indications: The patient is a 41-year-old male history of IV drug use though denies presents with right small finger swelling pain and purulence drainage. States has been this way for a few days. Not sure how was injured thinks he might have crush did or passed out. Does have a history of MRSA left finger infection with flexor tenosynovitis approximately 4 months ago that required I&D at this facility. He is allergic to sulfa. He was seen in the ER found to have finger infection concern for flexor tenosynovitis. Orthopedics was called. The patient was admitted to the medicine service cultures were taken in the ER and IV antibiotics were started and patient was made NPO for the OR. Orthopedic evaluation was consistent with flexor tenosynovitis with can able signs additionally there was a pointing abscess was the in the mid axial line ulnarly on the digit and tracked both volar and dorsal. The patient was indicated for irrigation debridement of the abscess and irrigation of the flexor tendon sheath, treatment for pyogenic flexor tenosynovitis. The risks and benefits of the procedure have been discussed with the patient even opportunity to ask questions. The risks of surgery include but are not limited to infection, need for additional surgery, stiffness, persistence of pain, damage to nerves and blood vessels, posttraumatic arthritis, DVT, PE, cardiopulmonary complications and . The patient expressed a thorough understanding of the risks and benefits of surgery and has elected to proceed. Consent was signed. Surgeon: Callie Elias Click Yes if Unassisted: Yes Anesthesia Type: General and Local Operative Notes Findings: Small finger swelling fusiform with draining abscess mid axial line distal right 5th finger as this was opened with purulence both into the pulp of the distal phalanx and a dorsally and subcutaneous between the skin and extensor tendon. Volarly purulence tracked deep to the flexor tendon sheath Closure Type: primary Specimen(s): none sent Estimated Blood Loss (mL): 25 Blood products transfused: none Tourniquet time (min): 29 Procedure in detail: Patient was seen in the preoperative area the site of surgery marked informed consent confirmed. He was brought back to the operating room by the anesthesia team positioned supine on operative table. Anesthetic was administered. The patient was prepped and draped in the standard sterile procedure. The right upper extremity was positioned on the hand table. Formal time-out procedure was performed confirming the patient's side and site of surgery. Informed consent was in the room. Additionally the patient was on his scheduled IV antibiotics. Attention was turned to the right arm gravity exsanguination was used the tourniquet was elevated to 250 mmHg attention was turned to the right small finger there was fusiform swelling. There was a draining abscess at the mid axial line ulnarly on the right 5th finger this was extended in the mid axial line from mid length of the distal phalanx to the proximal phalanx short of the web space. Cultures were sent. was dissected down to the flexor tendon sheath distal to the a 4 betty with a the tendon sheath was entered. Additionally purulence was noted to track at the distal pulp of the finger volarly as well as dorsally over the distal phalanx between the extensor tendon and the skin as a subcutaneous abscess. A counter incision was made at the A1 betty level for the 5th finger and the A1 betty was incised in the flexor tendon sheath was entered proximally. A Angiocath was placed proximally and 500 cc of saline was irrigated through and through the tendon sheath from proximal to distal. Additional bulb syringe lavage of the abscess distally was completed. Flexor and extensor tendons were noted to be intact. There was some a epidermal lysis and discrimination distally from the swelling stead epidermal skin was debrided once this was completed a clean drape was placed down. Tourniquet was released. Hemostasis was achieved. A loose 3-0 nylon stitch was placed at the A1 betty home incision site with a wick of packing and then to lose 3-0 sutures were placed in the proximal portion of the mid axial incision with the distal area where the abscess had drained left open and packed with quarter-inch plain gauze. The digit pinked up well. There was no remaining fluctuance. 8 cc of 0.25% Marcaine with epinephrine were injected local anesthetic. Xeroform gauze was placed over the incisions followed by 4 x 4 gauze and Kerlix wrap. Patient was woken from anesthesia and taken to the recovery room in good condition there no immediate complications from this procedure. Counts were correct. Complications: none Post-operative Condition: stable Disposition: PACU Plan for aftercare: Patient will go back to the floor. He will continue on IV antibiotics. These will be tailored based on the cultures. Tomorrow he will start b.i.d. warm soapy soaks. Should soak his hand in warm soapy water 15 minutes twice a day. The dressings were should come down for this and they can be soaks in the packing manuel from the proximal and distal lesions can be removed and changed. These should be changed and repacked with a quick just to keep them open for at least a few days the proximal lesion and likely for a week or more at the distal wound. He will start early active and passive range of motion of the digit to help avoid stiffness. When not soaking the area should be wrapped in clean gauze. Patient is recommended to follow up with the orthopedic clinic in 1-2 weeks for an additional wound check and suture removal.
[2021-07-18] MEDS: EPINEPHrine 1 MG/ML 0.15 MG INJ (21:55)
[2021-07-18] MEDS: OXYCODONE IR 5 MG TABLET PO (22:07)
[2021-07-18] MEDS: fentaNYL 100 MCG/2 ML INJ IV (22:20)
--- NOTE | 2021-07-18 22:45 | SUR.PHASEI ---
Medicated with fentanyl and oxycodone. Stable PACU stay report called, tranported up to room.
--- NOTE | 2021-07-18 22:57 | SUR.PHASEI ---
Pt left with RN and INDUSTRIAL TRACTOR [employer] and left in stable condition.
[2021-07-19] MEDS: VANCOMYCIN 1,000 MG/200 ML PIGGYBACK 200 MG IV ×3 (00:49→18:40)
[2021-07-19 00:53] VITALS: BP 120/70; PULSE 58; RESP 16; TEMP 36.3; O2SAT 97
[2021-07-19] MEDS: PIPERACILLIN/TAZO 3.375 GM in SODIUM CHLORIDE 0.9% 100 ML IV ×2 (02:08→08:57)
[2021-07-19 02:34] VITALS: BP 113/67; PULSE 71; RESP 16; TEMP 36.5; O2SAT 97
[2021-07-19] MEDS: HYDROCODONE/ACET 5/325 TABLET 1 TAB PO ×4 (03:30→17:16)
[2021-07-19 05:06] LABS: Add Manual Diff / Slide Review NO; Basophils Absolute Auto 100 /uL (0-100); Basophils Percent Auto 1.1 % (0-2); Eosinophils Absolute Auto 400 /uL (0-450); Eosinophils Percent Auto 4.7 % (2-4); Hematocrit 40.9 % (41-53); Hemoglobin 14.1 g/dL (13.5-17.5); Lymphocytes Absolute Auto 1600 /uL (1100-4500); Lymphocytes Percent Auto 19.3 % (25-40); Mean Corpuscular HGB Conc 34.3 % (30-36); Mean Corpuscular Hemoglobin 30.8 PG (26-34); Mean Corpuscular Volume 89.8 fL (80-100); Monocytes Absolute Auto 700 /uL (0-900); Monocytes Percent Auto 8.4 % (3-14); Neutrophils Absolute Auto 5600 /uL (1500-7000); Neutrophils Percent Auto 66.5 % (50-75); Platelet Count 255 X10^3/uL (150-400); Red Blood Cell Count 4.56 X10^6/uL (4.5-5.9); White Blood Cell Count 8.5 X10^3/uL (4.5-11.0)
[2021-07-19 05:08] LABS: Albumin 3.6 g/dL (3.5-5.0); BUN Creatinine Ratio 10.5 (6-22); Blood Urea Nitrogen 13 mg/dL (9-20); Calcium 8.4 mg/dL (8.4-10.2); Carbon Dioxide 28 mmol/L (22-32); Chloride 102 mmol/L (98-107); Estimated Glomerular Filt Rate > 60 mL/min (>60); Glucose 121 mg/dL (70-100); HEMOLYSIS < 15 (0-50); Phosphorous 4.7 mg/dL (2.5-4.5); Potassium 3.9 mmol/L (3.4-5.1); Sodium 138 mmol/L (137-145)
[2021-07-19] MEDS: HYDROMORPHONE 1 MG INJ IV ×3 (05:31→23:31)
[2021-07-19 05:32] LABS: C-Reactive Protein Quant 3.3 mg/dL (<1.0)
[2021-07-19] MEDS: PANTOPRAZOLE DR 20 MG TABLET PO (08:15)
[2021-07-19 09:23] VITALS: BP 110/68; PULSE 70; RESP 17; TEMP 37.1; O2SAT 98
--- NOTE | 2021-07-19 09:26 | P.PN_ITS ---
Subjective Subjective Date Patient Seen: 07/19/21 Time Patient Seen: 09:27 Interval history: The patient is quite somnolent this morning. Exam Vital Signs (past 8 hours): - 07/19/21 02:34 Temperature 97.7 F Pulse Rate 71 Respiratory Rate 16 Blood Pressure 113/67 Pulse Oximetry 97 Oxygen Delivery Method Room Air Oxygen Flow Rate 0 Narrative Exam Narrative: Right hand wound is dressed with bloody drainage on the bandage. Light touch is intact in the small finger distal to the dressing. Objective Labs Result Diagrams: 07/19/21 04:40 07/19/21 04:40 Labs: Laboratory Results - last 24 hr 07/19/21 07/19/21 07/19/21 04:40 04:40 08:28 WBC 8.5 RBC 4.56 Hgb 14.1 Hct 40.9 L MCV 89.8 MCH 30.8 MCHC 34.3 RDW 13.0 Plt Count 255 Neut % (Auto) 66.5 Lymph % (Auto) 19.3 L [place] % (Auto) 8.4 Eos % (Auto) 4.7 H Baso % (Auto) 1.1 Neut # (Auto) 5600 Lymph # (Auto) 1600 [place] # (Auto) 700 Eos # (Auto) 400 Baso # (Auto) 100 Sodium 138 Potassium 3.9 Chloride 102 Carbon Dioxide 28 BUN 13 Creatinine 1.24 Estimated GFR > 60 BUN/Creatinine Ratio 10.5 Glucose 121 H Calcium 8.4 Phosphorus 4.7 H C-Reactive Protein 3.3 H Albumin 3.6 Vancomycin Trough 11.0 PFSH Medical History No pertinent past medical history Patient denies medical problems Surgical History No significant past surgical history Family History Mother No active medical problems Social History household members: significant other Smoking Status: Current every day smoker alcohol intake: current substance use type: heroin, IV drugs and methamphetamine (per hospital provider notes) Assessment & Plan Post-op Postoperative Procedures: Procedures Operation Date: 07/18/21 18:30 Actual Procedure Side Surgeon p I&D 5th finger flexor tenosynoutes Right Callie Elias MD Postoperative day: 1 Postoperative status: doing well Postoperative status narrative: The patient is stable postop day 1 status post incision and drainage of a small finger flexor tenosynovitis by Dr. Elias. He is sleepy this morning. Cultures are pending. He is currently on vancomycin and Zosyn. Postoperative plan: routine post-op care and other (Dressing changes) Postoperative plan narrative: I have written orders according to Dr. Elias's postoperative plan for dressing changes and warm soaks twice a day. We will follow the culture results and adjust antibiotics accordingly. He will need to remain hospitalized on intravenous antibiotics for several days until sensitivi ty results are available. Time Spent With Patient Time with patient: less than 15 minutes Quality VTE Deep Vein Thrombosis/Pulmonary Embolism Present on Admission: No
--- NOTE | 2021-07-19 09:50 | PT-IP ANOTE ---
Reviewed EMR and pt s/p I&D for finger abscess flexor tendon sheet. Talked to ortho PA and agreed that pt needs OT for hand ROM and ADL assessment and to d/c PT. informed OT regarding new eval order.
[2021-07-19] MEDS: VANCOMYCIN TROUGH 1 REQUEST MISC (10:15)
--- NOTE | 2021-07-19 10:45 | CM.DANOTE ---
DCP: Payor: Isaac PCP: Cherie Diggs Pt is a 41 y.o. M admitted for a an I&D finger abscess and irrigation flexor tendon. Pt has a history of IV drug usage. Pt had surgery on 07/18/21. Pt is currently on abx, vanco and zosyn. Cultures are pending. MD will adjust abx per culture results. Pt will be in the hospital for IV abx for the next several day per MD. DCP attempted to meet with pt bedside this morning. Pt not interested in talking with DCP. DCP updated the white board and instructed to call if any questions. DCP knows that he lives in [place] and his primary contact is his mom, Penelope. DCP will attempt to talk with pt at a later date. DCP to continue to follow. P: Awaiting MD results on home with IV abx or orals. Laurel Maxwell RN/MANUEL Discharge Planning/Care Management CM Discharge Assessment Start: 07/19/21 10:44 Freq: Status: Active Protocol: Document 07/19/21 10:44 MARTY (Rec: 07/19/21 10:45 [email or web address] [id number]) Discharge Planning Assessment Assigned Community Relations Coordinator Laurel Maxwell RN/MANUEL Advance Directives? No Advance Directives on File No History Provided By Medical Record Type of transporation used prior to Relies on Others admit Independent with ADL's Yes Is patient alert and oriented? Yes Caregiver for Another No Comment Patient has no primary care provider, no insurance as well . He has history of IV Drug user. Discharge Plan Home Referrals Initiated None needed Additional Comment At this time. Whiteboard Updated in Patient Room with Yes name and ext. # of Community Relations Coordinator Comment Instructed pt to call with questions. Review Status In Process Please Provide Date Initial DC 07/19/21 Assessment Was Performed Next Review Type Continued Stay Review
[2021-07-19] MEDS: GABAPENTIN 100 MG CAPSULE PO (11:13)
[2021-07-19] MEDS: HYDROMORPHONE 2 MG INJ IV ×3 (11:35→18:50)
--- NOTE | 2021-07-19 11:39 | PC.NURSE ---
Addendum entered by Marlyn Anaya R.N. 07/19/21 11:59: Culture with staph isolation initiated, education to patient. Original Note: AM shift Pt reports significant pain issues this AM, IV Dilaudid and [place] ineffective and unable to attempt dressing change Wet to dry dressing with old appearing drainage. Dr Choudhary into write orders for BID dressing changes and soak. N.O. obtained for increased Dilaudid to tolerate dressing changes. Pt agreeable to attempt change after meal. VSS. Hand elevated and ice pack provided.
[2021-07-19 13:05] VITALS: BP 115/66; PULSE 68; RESP 16; TEMP 37.1; O2SAT 97
[2021-07-19 15:00] VITALS: TEMP 37.5
--- NOTE | 2021-07-19 15:00 | OT.IPNOTE ---
Spoke to nursing earlier to also encourage pt to active move his right hand.
--- NOTE | 2021-07-19 15:59 | OT.IPNOTE ---
Attempted to see pt for OTeval x2, 1st time pt getting a dressing change for his hand and second time pt states too tired. Pt encouraged to more his right hand especially to make a fist, finger flexion and finger opposition.
--- NOTE | 2021-07-19 17:39 | P.PN_ITS ---
Subjective Subjective Date Patient Seen: 07/19/21 Interval history: Patient is postop day 1 status post incision and drainage of small finger flexor tenosynovitis. He is on vancomycin and Zosyn. Culture preliminary positive for Staph aureus. He is complaining of pain but otherwise stable. Earlier this year he had similar infection which was MRSA sensitive to doxy. Exam Vital Signs (past 8 hours): - 07/19/21 13:05 Temperature 98.7 F Pulse Rate 68 Respiratory Rate 16 Blood Pressure 115/66 Pulse Oximetry 97 Oxygen Delivery Method Room Air Oxygen Flow Rate 0 Narrative Exam Narrative: General: He is sleepy but arousable Postop dressing clean and dry Objective Labs Result Diagrams: 07/19/21 04:40 07/19/21 04:40 Labs: Laboratory Results - last 24 hr 07/19/21 07/19/21 07/19/21 04:40 04:40 08:28 WBC 8.5 RBC 4.56 Hgb 14.1 Hct 40.9 L MCV 89.8 MCH 30.8 MCHC 34.3 RDW 13.0 Plt Count 255 Neut % (Auto) 66.5 Lymph % (Auto) 19.3 L [place] % (Auto) 8.4 Eos % (Auto) 4.7 H Baso % (Auto) 1.1 Neut # (Auto) 5600 Lymph # (Auto) 1600 [place] # (Auto) 700 Eos # (Auto) 400 Baso # (Auto) 100 Sodium 138 Potassium 3.9 Chloride 102 Carbon Dioxide 28 BUN 13 Creatinine 1.24 Estimated GFR > 60 BUN/Creatinine Ratio 10.5 Glucose 121 H Calcium 8.4 Phosphorus 4.7 H C-Reactive Protein 3.3 H Albumin 3.6 Vancomycin Trough 11.0 PFSH Medical History No pertinent past medical history Patient denies medical problems Surgical History No significant past surgical history Family History Mother No active medical problems Social History household members: significant other Smoking Status: Current every day smoker alcohol intake: current substance use type: heroin, IV drugs and methamphetamine (per hospital provider notes) Assessment & Plan Assessment & Plan narrative: 1. Right small finger flexor tenosynovitis -status post incision and drainage on 07/18 -cultures positive for Staph aureus, awaiting sensitivities -stop Zosyn, continue vancomycin -pain control, hydrocodone p.o. for moderate pain and IV Dilaudid for severe pain, monitor for excessive sedation -dressing changes and warm soaks twice a day per Ortho DVT prophylaxis: Enoxaparin Time Spent With Patient Critical Care time: I spent a total of [] minutes of critical care time on this patient's care today; this time is exclusive of procedural time. Quality VTE Deep Vein Thrombosis/Pulmonary Embolism Present on Admission: No
[2021-07-19] MEDS: HYDROCODONE/ACET 5/325 TABLET 2 TAB PO (18:40)
[2021-07-19 20:00] VITALS: BP 119/73; PULSE 61; RESP 15; TEMP 36.3; O2SAT 100
[2021-07-20] VITALS: BP 116/57; PULSE 62; RESP 17; TEMP 36.5; O2SAT 96
[2021-07-20] MEDS: VANCOMYCIN 1,000 MG/200 ML PIGGYBACK 200 MG IV ×2 (01:59→08:44)
[2021-07-20] MEDS: HYDROCODONE/ACET 5/325 TABLET 2 TAB PO ×2 (02:01→08:44)
[2021-07-20] MEDS: HYDROMORPHONE 2 MG INJ IV (03:41)
[2021-07-20 04:00] VITALS: BP 113/55; PULSE 71; RESP 16; TEMP 36.8; O2SAT 96
--- NOTE | 2021-07-20 07:50 | PC.NURSE ---
End of shift note: Care of patient from [id number]. Good pain control with [place] and IV Dilaudid. Pre-medicated patient with Dilaudid 2mg IV before Right hand dressing change and soak this am. Rt. hand dressing change done at 0430, patient tolerated very well.
[2021-07-20 08:00] VITALS: BP 117/68; PULSE 67; RESP 16; TEMP 35; O2SAT 95
[2021-07-20] MEDS: ENOXAPARIN 40 MG/0.4 ML SYRINGE SUBCUT (08:43)
--- NOTE | 2021-07-20 09:12 | PM.PNPO.1 ---
Subjective Subjective Date Patient Seen: 07/20/21 Time Patient Seen: 09:12 Interval history: The patient reports that his hand is doing well. His pain is well controlled. Exam Vital Signs (past 8 hours): - 07/20/21 04:00 07/20/21 08:00 Temperature 98.3 F 95 F L Pulse Rate 71 67 Respiratory Rate 16 16 Blood Pressure 113/55 L 117/68 Pulse Oximetry 96 95 Oxygen Delivery Method Room Air Oxygen Flow Rate 0 Narrative Exam Narrative: Right hand wound is dressed with minimal drainage on the bandage. Light touch is intact in the distal small finger. Objective Labs Result Diagrams: 07/19/21 04:40 07/19/21 04:40 Labs: Laboratory Results - last 24 hr 07/19/21 08:28 Vancomycin Trough 11.0 PFSH Medical History No pertinent past medical history Patient denies medical problems Surgical History No significant past surgical history Family History Mother No active medical problems Social History household members: significant other Smoking Status: Current every day smoker alcohol intake: current substance use type: heroin, IV drugs and methamphetamine (per hospital provider notes) Assessment & Plan Post-op Postoperative Procedures: Procedures Operation Date: 07/18/21 18:30 Actual Procedure Side Surgeon p I&D 5th finger flexor tenosynoutes Right Callie Elias MD Postoperative day: 2 Postoperative status: doing well Postoperative status narrative: The patient is postoperative day 2 status post incision and drainage of a right small finger flexor tenosynovitis by Dr. Callie Elias. He has been undergoing wound soaks and dressing changes. We are awaiting the sensitivity results. Cultures are positive for Staph aureus. Postoperative plan: routine post-op care Postoperative plan narrative: Continue wound care as ordered by Dr. Elias. Once sensitivities are available, antibiotics will be tailored to his infection and he will potentially be able to be discharged. Time Spent With Patient Time with patient: less than 15 minutes Quality VTE Deep Vein Thrombosis/Pulmonary Embolism Present on Admission: No
[2021-07-20] MEDS: HYDROMORPHONE 1 MG INJ IV (10:45)
[2021-07-20 11:04] VITALS: BP 101/52; PULSE 64; RESP 14; TEMP 35.9; O2SAT 95
--- NOTE | 2021-07-20 11:11 | CM.DPC ---
Addendum entered by Patricia Burris R.N. 07/20/21 14:33: Patient is to be discharged home today on oral antibiotics. He was reluctant, originally, due his concerns about being able to do his own hygiene care. Nurse, Laura, did some teaching, and patient is feeling better about going home. He had some dressing change teaching. His girl friend picked him up. Original Note: DCP Cont: Discussed patient during team rounds. Mentioned challenges if patient does need IV ABO upon discharge, as patient had been here a few months ago with the same problem, secondary to his IV drug use. [facility] would not accept, nor would any home health agencies. Dr. Calderon mentioned, he is hopeful that patient can discharge tomorrow on oral antibiotics. P: DCP to continue to follow for any needs. Patricia Burris RN/Director Of Search Engine Marketing
[2021-07-20 12:04] LABS: Estimated Glomerular Filt Rate > 60 mL/min (>60)
[2021-07-20] MEDS: ACETAMINOPHEN 325 MG TABLET 650 MG PO (12:43)
--- NOTE | 2021-07-20 13:48 | PC.NURSE ---
Pt is dressed and ready for discharge home with girlfriend. IV has been removed. Performed dsg change with girlfriend present and answered all questions. Reviewed stroke education, time of last dose, reviewed s/s of infection, reminded both that Pt would need to make an appointment to follow up with Amanda Crowell this week and his PCP as needed. Reminded Pt to drink plenty of fluids to prevent constipation or dehydration and to complete his full course of antibiotics as prescribed. Pt denied further questions and was taken out via w/c by [employer] to POV with S.O. and all belongings.
--- NOTE | 2021-07-20 17:03 | PM.DS.1 ---
History of Present Illness History of Present Illness Chief complaint: Non traumatic rt hand infection Narrative: 41-year-old male came to the ER with worsening of the right hand swelling, noted to have significant ulcer and also pus draining.? Patient is a poor historian, not interested in having long conversations at this time.? He does seem to be very sleepy.? This is this even started couple of days ago and continues to get worse, now having heparin discharge in significant pain with hand movement.? Initially pain was graded at a rate of 8/10 now improving.? Patient does seem to be comfortable.? Probably had some fevers yesterday.? Restriction of final meds because of the pain.? He had similar issues in the past was appropriately drained with surgical intervention, improved.? History of IV drug abuse noted.? Denies any headaches, nausea, no vomiting, no chest pain. Discharge Providers Provider Date of admission: 07/18/21 00:13 Discharge Date: 07/20/21 Primary care physician: Cherie Diggs MD Consults: 07/18/21 22:57 Consult to Discharge Planning Routine Comment: Consult to Physical Therapy Evaluate & Treat Comment: finger rom as tolerated, wbat Physician Instructions: Evaluate and Treat Consult to Respiratory Therapy Evaluate & Treat Comment: Physician Instructions: Evaluate and treat 07/19/21 09:53 Consult to Occupational Therapy Evaluate & Treat Comment: ROM on finger; WBAT Physician Instructions: Evaluate and treat 07/19/21 09:55 Consult to Occupational Therapy Evaluate & Treat Comment: Physician Instructions: Evaluate and treat Discharge provider: Ar Calderon MD Summary Hospital Course Discharge Diagnosis: 1. Right small finger flexor tenosynovitis due to MRSA 2. History of IVDU Procedure: I&D finger abscess and irrigation flexor tendon sheath by Dr. Callie Elias [facility] Course: Patient was admitted and started on broad-spectrum IV antibiotics including to treat MRSA. He had open I&D in the OR. Wound cultures grew MRSA which was susceptible to doxycycline for home oral outpatient therapy. He will follow-up at ortho clinic. Status at Discharge Cognitive/behavioral status at discharge: oriented Functional status at discharge: independent ambulation Overall status at discharge: patient is progressing back to baseline Time Spent with Patient Time spent: Less than 30 minutes Exam Vital Signs (past 8 hours): - 07/20/21 11:04 Temperature 96.7 F L Pulse Rate 64 Respiratory Rate 14 Blood Pressure 101/52 L Pulse Oximetry 95 Oxygen Delivery Method Room Air Oxygen Flow Rate 0 Narrative Exam Narrative: General: Alert male who is in no acute distress There is dry dressing on right hand Objective Labs Result Diagrams: 07/19/21 04:40 07/20/21 11:50 Labs: Laboratory Results - last 24 hr 07/20/21 11:50 Creatinine 0.94 Estimated GFR > 60 PFSH Medical History No pertinent past medical history Patient denies medical problems Surgical History No significant past surgical history Family History Mother No active medical problems Social History household members: significant other Smoking Status: Current every day smoker alcohol intake: current substance use type: heroin, IV drugs and methamphetamine (per hospital provider notes) Discharge Plan Discharge Plan Patient Disposition: Home Provider Discharge Comment: Please fill antibiotic Rx today. Follow up with Orthopedic surgery this week for wound check. Continue warm soaks twice daily for 15 minutes but otherwise keep hand wrapped with clean gauze. Leave wick in unless it falls out on its own. Discharge orders & Medications Prescriptions: New doxycycline monohydrate 100 mg tablet 100 mg PO BID Qty: 28 0RF Continued hydrocodone-acetaminophen 5-325 mg Tablet 1 tab PO Q4-8H PRN (Reason: Pain, Severe (7-10)) Qty: 35 0RF Follow up/Referrals: [facility] [Provider Group] - 1 Week Cherie Diggs MD [Primary Care Provider] - Discharge Health Status Multidrug resistant organism: MRSA Diet/Activity/Treatments Diet: Regular Visit Report/Discharge Packet Instructions: How to Change a Wet to Dry Wound Dressing, DI for Incision and Drainage, Doxycycline (By mouth) Discharge Data Primary Care Provider: Cherie Diggs Quality VTE Deep Vein Thrombosis/Pulmonary Embolism Present on Admission: No
== END 2021-07-20 13:54 | disposition home or self-care (01) | DRG 316 ==
LOC: ED 20:06 → AC 07-18 02:59
PROVIDERS: Neuromusculoskeletal Medicine, Sports Medicine; Orthopaedic Surgery Foot and Ankle Surgery; Admitting Provider Family Medicine; Emergency Provider Emergency Medicine; PCP Family Medicine; Referring Provider Emergency Medicine; Visit Provider Family Medicine
PROC: (CPT 26020; principal; 2021-07-18 18:30)
DX: M65.9 Synovitis and tenosynovitis, unspecified (principal); L03.011 Cellulitis of right finger; L03.113 Cellulitis of right upper limb; F15.10 Other stimulant abuse, uncomplicated; F11.10 Opioid abuse, uncomplicated; B95.62 Methicillin resistant Staphylococcus aureus infection as the cause of diseases classified elsewhere; F17.200 Nicotine dependence, unspecified, uncomplicated; Z20.822 Contact with and (suspected) exposure to COVID-19
CPT/HCPCS: 26020; 36415; 73140; 80053; 80069; 80202; 82565; 83605; 84145; 85025; 85610; 86140; 87040; 87070; 87075; 87077; 87147; 87185; 87186; 87205; 87635; 93005; 96365; 96366; 96367; 96375; 99284; C9803; G0378; J0171; J0696; J1170; J1650; J2270; J2543; J2704; J3010

== ENCOUNTER 2022-03-29 14:50 | Emergency (ER) | payer OTHER, MEDICAID, SELFPAY ==
[2021-07-18 11:21] VITALS: BMI 31.8
--- NOTE | 2022-03-29 15:01 | PC.NURSE ---
called patient x 2, he is in the restroom .
[2022-03-29 15:07] VITALS: BP 147/89; PULSE 81; RESP 19; TEMP 36.6; O2SAT 100; BMI 34.0
[2022-03-29 16:56] LABS: Add Manual Diff / Slide Review NO; Basophils Absolute Auto 100 /uL (0-100); Basophils Percent Auto 1.2 % (0-2); Eosinophils Absolute Auto 400 /uL (0-450); Eosinophils Percent Auto 3.6 % (2-4); Lymphocytes Absolute Auto 2200 /uL (1100-4500); Lymphocytes Percent Auto 20.7 % (25-40); Mean Corpuscular HGB Conc 34.1 % (30-36); Mean Corpuscular Hemoglobin 31.3 PG (26-34); Mean Corpuscular Volume 91.6 fL (80-100); Monocytes Absolute Auto 700 /uL (0-900); Neutrophils Absolute Auto 7200 /uL (1500-7000); Neutrophils Percent Auto 67.5 % (50-75); Platelet Count 300 X10^3/uL (150-400); Red Cell Distribution Width 13.5 % (11.6-14.8); White Blood Cell Count 10.7 X10^3/uL (4.5-11.0)
[2022-03-29 17:05] LABS: Alanine Aminotransferase 120 IU/L (<50); Albumin 4.3 g/dL (3.5-5.0); Albumin Globulin Ratio 1.2 (1.0-2.8); Alkaline Phosphatase 89 U/L (38-126); Aspartate Aminotransferase 78 IU/L (17-59); BUN Creatinine Ratio 10.8 (6-22); Bilirubin Total 0.9 mg/dL (0.2-1.3); Blood Urea Nitrogen 11 mg/dL (9-20); Calcium 8.9 mg/dL (8.4-10.2); Carbon Dioxide 30 mmol/L (22-32); Chloride 100 mmol/L (98-107); Estimated Glomerular Filt Rate > 60 mL/min (>60); Globulin 3.7 g/dL (1.7-4.1); Glucose 95 mg/dL (70-100); HEMOLYSIS < 15 (0-50); Lipase 64 U/L (23-300); Potassium 4.7 mmol/L (3.4-5.1); Sodium 139 mmol/L (137-145)
[2022-03-29 17:19] LABS: Amorphous Sediment Urine 1+; Bacteria Urine Many (>30); RBC Urine 1-5/HPF (0-5/HPF); Squamous Epithelial Cell Urine 0-1 /HPF (0-5/HPF); WBC Urine >100/HPF (0-5/HPF)
[2022-03-29 17:20] LABS: Culture Indicated Urine Specimen Cultured; Mucus Urine 1+ (Negative); Sperm Urine 3-5 /HPF
--- NOTE | 2022-03-29 18:17 | ED_ITS ---
HPI - General Adult General Chief complaint: Urogenital-Male Stated complaint: Blood in urine, abd pain insides exploding Time Seen by Provider: 03/29/22 17:25 Source: patient Mode of arrival: Family Vehicle History of Present Illness HPI narrative: Patient is a 42-year-old male here for evaluation of several days urinary hesitancy, blood in his urine, lower abdominal pain, constipation, and feeling like his ?insides are exploding?. Has never had this in the past. Has never had a urinary tract infection in the past. Did have a surgery for pyloric stenosis as a child with no other abdominal surgeries. Symptoms been consistent over the past couple days. No skin rashes. Patient has no concern about sexually transmitted infections. No testicular pain. No vomiting. No fevers. Related Data Previous Rx's Medication Instructions Recorded doxycycline monohydrate 100 mg 100 mg PO BID #28 tabs 07/20/21 tablet hydrocodone 5 mg-acetaminophen 325 1 tab PO Q4-8H PRN Pain, Severe 07/20/21 mg tablet (7-10) #35 tabs cephalexin 500 mg capsule 500 mg PO TID 10 days #30 caps 03/29/22 phenazopyridine 100 mg tablet 100 mg PO TID PRN pain 6 doses #6 03/29/22 (Pyridium) tabs Allergies Allergy/AdvReac Type Severity Reaction Status Date / Time Sulfa (Sulfonamide Allergy Unknown Verified 03/29/22 15:12 Antibiotics) [SULFA (SULFONAMIDE ANTIBIOTICS)] Review of Systems Review of Systems ROS Unobtainable: All systems reviewed & are unremarkable except as noted in HPI and below Patient History Medical History No pertinent past medical history Patient denies medical problems Surgical History No significant past surgical history Family History Mother No active medical problems Social History household members: significant other Smoking Status: Current every day smoker alcohol intake: current substance use type: heroin, IV drugs and methamphetamine (per hospital provider notes) Smoking Status: Current every day smoker tobacco type: cigarettes alcohol intake frequency: 0-2 drinks per day Substance Use Type: crack/cocaine, heroin and methamphetamine Exam Initial Vital Signs Initial Vital Signs: Vital Signs Temperature 97.8 F 03/29/22 15:07 Pulse Rate 81 03/29/22 15:07 Respiratory Rate 19 03/29/22 15:07 Blood Pressure 147/89 H 03/29/22 15:07 Pulse Oximetry 100 03/29/22 15:07 Oxygen Delivery Method 03/29/22 15:07 Const General: cooperative and No ill appearing HENMT Head: normal to inspection Resp Effort & Inspection: normal respiratory effort Auscultation: clear to auscultation bilaterally Cardio Rate: regular rate Rhythm: regular rhythm GI Inspection: normal to inspection and non-distended Palpation: soft, No firm and tender (Diffuse tenderness) Back/Spine/Pelvis Back: No CVA tenderness Skin General: no rashes or lesions noted Neuro General: patient alert and patient awake Extrem General: normal to inspection Scores GCS [place] coma scale eye opening: Spontaneous [place] coma scale verbal response: Orientated [place] coma scale motor response: Obey commands [place] coma scale total score: 15 Course Orders Ordered: ED Orders 03/29/22 16:38 Urine Culture Stat Urine Microscopic Stat 03/29/22 16:42 Complete Blood Count AUTO DIFF Stat Comprehensive Metabolic Panel Stat Lipase Stat 03/29/22 18:18 CT kidney ureter bladder (KUB) Stat Discontinued Medications Ceftriaxone Sodium 2,000 mg/ (Sodium Chloride) 100 mls @ 200 mls/hr IV NOW ONE Stop: 03/29/22 19:03 Last Infusion: 03/29/22 19:53 Dose: 0 mls/hr Documented By: Admin: 03/29/22 19:20 Dose: 200 mls/hr Documented By: KAREN Ketorolac Tromethamine (Ketorolac 30 Mg/Ml Vial) 30 mg IV NOW ONE Stop: 03/29/22 19:03 Last Admin: 03/29/22 19:20 Dose: 30 mg Documented By: KAREN Ondansetron HCl (Ondansetron 4 Mg/2 Ml Inj) 4 mg IV NOW PRN PRN Reason: Nausea And Vomiting Ondansetron HCl (Ondansetron 4 Mg Odt) 4 mg SL NOW PRN PRN Reason: Nausea And Vomiting Phenazopyridine HCl (Phenazopyridine 100 Mg Tablet) 100 mg PO NOW ONE Stop: 03/29/22 19:03 Last Admin: 03/29/22 19:19 Dose: 100 mg Documented By: KAREN Vital Signs Vital signs: Vital Signs - 8 hr 03/29/22 15:07 03/29/22 20:32 Temperature 97.8 F Pulse Rate 81 71 Respiratory Rate 19 18 Blood Pressure 147/89 H 130/78 Pulse Oximetry 100 100 Oxygen Delivery Method Room Air Room Air Medical Decision Making Lab Data Lab results reviewed: Yes I reviewed the patient's lab results. 03/29/22 16:42 03/29/22 16:42 Labs: Lab Results 03/29/22 03/29/22 03/29/22 Range/Units 16:38 16:42 16:42 WBC 10.7 (4.5-11.0) X10^3/uL RBC 4.80 (4.5-5.9) X10^6/uL Hgb 15.0 (13.5-17.5) g/dL Hct 44.0 (41-53) % MCV 91.6 (80-100) fL MCH 31.3 (26-34) PG MCHC 34.1 (30-36) % RDW 13.5 (11.6-14.8) % Plt Count 300 (150-400) X10^3/uL Neut % (Auto) 67.5 (50-75) % Lymph % (Auto) 20.7 L (25-40) % [place] % (Auto) 7.0 (3-14) % Eos % (Auto) 3.6 (2-4) % Baso % (Auto) 1.2 (0-2) % Neut # (Auto) 7200 H (9119-9035) /uL Lymph # (Auto) 2200 (0917-1341) /uL [place] # (Auto) 700 (0-900) /uL Eos # (Auto) 400 (0-450) /uL Baso # (Auto) 100 (0-100) /uL Sodium 139 (137-145) mmol/L Potassium 4.7 (3.4-5.1) mmol/L Chloride 100 (98-107) mmol/L Carbon Dioxide 30 (22-32) mmol/L BUN 11 (9-20) mg/dL Creatinine 1.02 (0.66-1.25) mg/dL Estimated GFR > 60 (>60) mL/min BUN/Creatinine Ratio 10.8 (6-22) Glucose 95 (70-100) mg/dL Calcium 8.9 (8.4-10.2) mg/dL Total Bilirubin 0.9 (0.2-1.3) mg/dL AST 78 H (17-59) IU/L ALT 120 H (<50) IU/L Alkaline Phosphatase 89 (38-126) U/L Total Protein 8.0 (6.3-8.2) g/dL Albumin 4.3 (3.5-5.0) g/dL Globulin 3.7 (1.7-4.1) g/dL Albumin/Globulin Ratio 1.2 (1.0-2.8) Lipase 64 (23-300) U/L Urine RBC 1-5/hpf (0-5/HPF) Urine WBC >100/hpf H (0-5/HPF) Ur Squamous Epith Cells 0-1 /hpf (0-5/HPF) Amorphous Sediment 1+ Urine Bacteria Many (>30) H (None) Urine Mucus 1+ H (Negative) Urine Sperm 3-5 /hpf Ur Culture Indicated? Specimen cultured Urine Dip Bedside Urine Glucose Negative Bedside Urine Bilirubin - Negative Bedside Urine Ketone - Negative Urine Specific [place] 1.020 Bedside Urine Occult Blood +++ Bedside Urine pH 6.0 Bedside Urine Protein + 30 Bedside Urine Urobilinogen - Negative Bedside Urine Nitrite + Positive Bedside Urine Leukocytes ++ 125 Esterase Point of care testing: Urine Dip Bedside Urine Glucose Negative Bedside Urine Bilirubin - Negative Bedside Urine Ketone - Negative Urine Specific [place] 1.020 Bedside Urine Occult Blood +++ Bedside Urine pH 6.0 Bedside Urine Protein + 30 Bedside Urine Urobilinogen - Negative Bedside Urine Nitrite + Positive Bedside Urine Leukocytes ++ [address] scan - abdomen/pelvis: Radiologist's Impression: [address] [address] [address] Scan Report Signed Patient: Remy Ramirez JR MR#: [id number] : 1980 Acct:[id number] Age/Sex: 42 / M Date of Service: 03/29/22 Loc: ED Accession Number: [id number] ?? Procedure: CT kidney ureter bladder (KUB) Ordering Provider: Stuart Contreras D.O. PROCEDURE:? CT KIDNEY URETER BLADDER (KUB) ? INDICATIONS:? RLQ abd pain eval for stone ? TECHNIQUE:? Axial sections were acquired from the lung bases to the pubic symphysis.? Coronal and sagittal reformats were performed.? For radiation dose reduction, the following was used: ?automated exposure control, adjustment of mA and/or kV according to patient size.? ? COMPARISON:? None. ? FINDINGS:? Image quality:? Excellent.? ? Lung bases:? Unremarkable.? ? Heart:? No significant findings. ? URINARY: Right Kidney:? No stones or hydronephrosis. Right Ureter:? Mild prominence of distal ureter extending to right UVJ is seen with periureteral fat stranding. ? Left Kidney:? No stones or hydronephrosis.? Left Ureter:? There is mild left-sided hydroureter extending to left UVJ.? No obstructing stone is seen. ? Bladder:? Diffuse bladder wall thickening with extensive pericystic fat stranding is noted, no discrete bladder wall mass.? No calcified bladder stone. ? ABDOMEN: Liver:? Unremarkable.? ? Gallbladder:? Within normal limits.? Biliary ducts:? Unremarkable.? ? Pancreas:? Unremarkable.? ? Spleen:? Unremarkable.? ? Adrenal Glands:? Unremarkable.? ? ? Stomach and Bowel:? Stomach, small bowel loops, and colon are unremarkable.? Appendix is visualized in right lower quadrant and is within normal limits.? No abscess collection. Peritoneum:? No abnormal intraperitoneal fluid.? No free air.? ? Ventral Wall: ? No hernia.? Abdominal Nodes:? No enlarged retroperitoneal or mesenteric lymph nodes.? Vessels:? Aorta and inferior vena cava are normal in size.? ? PELVIS: Pelvic Organs:? Unremarkable.? ? Pelvic Nodes: Unremarkable. Miscellaneous: No inguinal hernias are seen. ? ? ? Bones:? No suspicious bony lesions.? No acute vertebral body compression fracture. ? IMPRESSION:? ? 1. No renal stones or hydronephrosis.? No perinephric fluid collection or fat stranding. ? 2. Mild distal right hydroureter and mild left hydroureter without obstructing ureteral stones.? Mild bilateral periureteral fat stranding.? Marked bladder wall thickening with extensive adjacent fat stranding .? Finding is concerning for cystitis possibly extending to involve bilateral ureters.? Urological correlation is recommended. ? 3. Normal appendix.? No bowel obstruction or abnormal bowel wall thickening.? No free fluid or free air.? ? Dictated by: Richi No M.D. on 03/29/2022 at 18:42 ? ? Approved by: Richi No M.D. on 03/29/2022 at 18:47?? [facility] Narrative Medical decision making narrative: Patient does have diffuse abdominal tenderness. Does have hematuria and also n itrite positive urine. He reports no concern for sexually transmitted infections. He is never had a urinary tract infection in the past. The CT scan does show findings that are consistent with a ascending urinary tract infection. It does not appear to have findings associated with the kidneys but the ureters or certainly infected. He is no CVA tenderness. He is tolerating oral intake. He did report improvement of all of his symptoms after medications here in the emergency department. The CT scan does not show any signs of the patient, appendicitis, diverticulitis, bowel obstruction or other intra-abdominal surgical pathology. Given his urinalysis in the finding of the CT scans this does appear to be a urinary issue. Was given a dose of antibiotics here in the emergency department and a prescription was sent to the pharmacy of his choice. Patient does not require admission to the hospital today given his presentation however given strict return precautions. Given the apparent nature of an ascending infection will treat him as pyelonephritis follow it does not appear to be affecting the kidneys on the CT scans. He expressed understanding and agreement plan. Discharge Plan Departure Patient Disposition: Home Clinical Impression: Urinary tract infection Instructions: DI for Urinary Tract Infection (UTI) Activity Restrictions/Additional Instructions: I do recommend that you increase your fluid intake. Take the antibiotics as directed. They were electronically transmitted to [employer]. There is a medicine called Pyridium that was sent as well. This medication can help with some of the bladder symptoms. It will turn your urine a bright yellow color. Return to the emergency department for new or worsening symptoms. Prescriptions: New cephalexin 500 mg capsule 500 mg PO TID 10 Days Qty: 30 0RF phenazopyridine [Pyridium] 100 mg tablet 100 mg PO TID PRN (Reason: pain) Qty: 6 0RF No Action doxycycline monohydrate 100 mg tablet 100 mg PO BID Qty: 28 0RF hydrocodone-acetaminophen 5-325 mg Tablet 1 tab PO Q4-8H PRN (Reason: Pain, Severe (7-10)) Qty: 35 0RF Stand Alone Forms: Patient Portal/API
--- NOTE | 2022-03-29 18:18 | DI.CT.S_ITS ---
PROCEDURE: CT KIDNEY URETER BLADDER (KUB) INDICATIONS: RLQ abd pain eval for stone TECHNIQUE: Axial sections were acquired from the lung bases to the pubic symphysis. Coronal and sagittal reformats were performed. For radiation dose reduction, the following was used: automated exposure control, adjustment of mA and/or kV according to patient size. COMPARISON: None. FINDINGS: Image quality: Excellent. Lung bases: Unremarkable. Heart: No significant findings. URINARY: Right Kidney: No stones or hydronephrosis. Right Ureter: Mild prominence of distal ureter extending to right UVJ is seen with periureteral fat stranding. Left Kidney: No stones or hydronephrosis. Left Ureter: There is mild left-sided hydroureter extending to left UVJ. No obstructing stone is seen. Bladder: Diffuse bladder wall thickening with extensive pericystic fat stranding is noted, no discrete bladder wall mass. No calcified bladder stone. ABDOMEN: Liver: Unremarkable. Gallbladder: Within normal limits. Biliary ducts: Unremarkable. Pancreas: Unremarkable. Spleen: Unremarkable. Adrenal Glands: Unremarkable. Stomach and Bowel: Stomach, small bowel loops, and colon are unremarkable. Appendix is visualized in right lower quadrant and is within normal limits. No abscess collection. Peritoneum: No abnormal intraperitoneal fluid. No free air. Ventral Wall: No hernia. Abdominal Nodes: No enlarged retroperitoneal or mesenteric lymph nodes. Vessels: Aorta and inferior vena cava are normal in size. PELVIS: Pelvic Organs: Unremarkable. Pelvic Nodes: Unremarkable. Miscellaneous: No inguinal hernias are seen. Bones: No suspicious bony lesions. No acute vertebral body compression fracture. IMPRESSION: 1. No renal stones or hydronephrosis. No perinephric fluid collection or fat stranding. 2. Mild distal right hydroureter and mild left hydroureter without obstructing ureteral stones. Mild bilateral periureteral fat stranding. Marked bladder wall thickening with extensive adjacent fat stranding . Finding is concerning for cystitis possibly extending to involve bilateral ureters. Urological correlation is recommended. 3. Normal appendix. No bowel obstruction or abnormal bowel wall thickening. No free fluid or free air. Dictated by: Richi No M.D. on 03/29/2022 at 18:42 Approved by: Richi No M.D. on 03/29/2022 at 18:47
[2022-03-29] MEDS: PHENAZOPYRIDINE 100 MG TABLET PO (19:19)
[2022-03-29] MEDS: KETOROLAC 30 MG/ML VIAL IV (19:20)
[2022-03-29] MEDS: cefTRIAXone 2,000 MG in SODIUM CHLORIDE 0.9% 100 ML 200 MG IV (19:20)
[2022-03-29 20:32] VITALS: BP 130/78; PULSE 71; RESP 18; O2SAT 100
== END 2022-03-29 20:33 | disposition home or self-care (01) ==
PROVIDERS: Emergency Medicine; Emergency Provider Emergency Medicine
DX: N39.0 Urinary tract infection, site not specified (principal); R10.30 Lower abdominal pain, unspecified; R31.9 Hematuria, unspecified
CPT/HCPCS: 36415; 51798; 74176; 80053; 81003; 81015; 83690; 85025; 87077; 87086; 87186; 96365; 96375; 99284; J0696; J1885

== ENCOUNTER 2022-09-06 18:29 | Emergency (ER) | payer OTHER, MEDICAID, SELFPAY ==
[2021-07-18 11:21] VITALS: BMI 31.8
[2022-09-06 18:34] VITALS: BP 113/67; PULSE 75; RESP 18; TEMP 36.2; O2SAT 99; BMI 29.5
--- NOTE | 2022-09-06 19:01 | PC.NURSE ---
Pt denies wanting to speak with [employer], consult not placed
[2022-09-06 20:44] VITALS: BP 125/69; PULSE 66; O2SAT 98
--- NOTE | 2022-09-06 20:47 | PC.NURSE ---
Pt in waiting room sitting in wheelchair, slumped over. Vital signs obtained and stable, pt alert but lethargic. pt states I'm having a hard time seeing Myself and another RN assisted pt to stretcher. Dr. White updated.
--- NOTE | 2022-09-06 23:51 | ED.SKABFB ---
HPI - Skin/Abscess/Foreign Bdy General Chief complaint: Skin/Abscess/Foreign Body Stated complaint: spider bite/groin area Time Seen by Provider: 09/06/22 18:34 Source: patient Mode of arrival: Ambulatory Limitations: no limitations History of Present Illness HPI narrative: 42-year-old male daily smoker with prior skin infections presents with a chief complaint of a painful red lump in his right groin and he is concerned about a spider bite. He states it has been there for the past few days and is causing pain. He squeezed a fairly large amount of green pus out of it a day or 2 ago. He denies any fever or chills. Denies nausea, vomiting or diarrhea. He denies any injections in this region. Related Data Previous Rx's Medication Instructions Recorded doxycycline monohydrate 100 mg 100 mg PO BID #28 tabs 07/20/21 tablet hydrocodone 5 mg-acetaminophen 325 1 tab PO Q4-8H PRN Pain, Severe 07/20/21 mg tablet (7-10) #35 tabs phenazopyridine 100 mg tablet 100 mg PO TID PRN pain 6 doses #6 03/29/22 (Pyridium) tabs doxycycline hyclate 100 mg tablet 100 mg PO BID #20 tabs 09/07/22 Allergies Allergy/AdvReac Type Severity Reaction Status Date / Time Sulfa (Sulfonamide Allergy Unknown Verified 03/29/22 15:12 Antibiotics) [SULFA (SULFONAMIDE ANTIBIOTICS)] Review of Systems Review of Systems Narrative: GENERAL: Denies chills, fatigue, malaise, fever, sweats. HEENT: Denies sinus pain, ear pain, sore throat, difficulty swallowing, dizziness. RESPIRATORY: Denies dyspnea, cough, wheezing, hemoptysis, sputum. CARDIOVASCULAR: Denies chest pain, palpitations, orthopnea, edema, GASTROINTESTINAL: Denies nausea, vomiting, abdominal pain, diarrhea, constipation, melena. : Denies dysuria, frequency, incontinence, hematuria, urinary retention. MUSCULOSKELETAL: denies weakness, joint pain, or bony pain SKIN: See HPI NEUROLOGIC: Denies weakness, headache, numbness, change in speech, confusion, seizures, incoordination. PSYCHIATRIC: No concerning psychosocial issues. 12 point review of systems is negative except for those stated above Patient History Medical History No pertinent past medical history Patient denies medical problems Surgical History No significant past surgical history Family History Mother No active medical problems Social History household members: significant other Smoking Status: Current every day smoker alcohol intake: current substance use type: heroin, IV drugs and methamphetamine (per hospital provider notes) Smoking Status: Current every day smoker tobacco type: cigarettes alcohol intake frequency: 0-2 drinks per day Substance Use Type: crack/cocaine, heroin and methamphetamine Exam Narrative Exam Narrative: GENERAL: [42] year old patient appears stated age. Well-developed patient, in mild distress. HEAD: Atraumatic. Normocephalic. EYES: Pupils equal round and reactive. Extraocular motions intact. No scleral icterus. No injection or drainage. ENT: Nose without bleeding, purulent drainage. Throat without erythema, tonsillar hypertrophy or exudate. Airway patent. NECK: Trachea midline. Non tender CARDIOVASCULAR: Regular rate and rhythm without murmurs, gallops, or rubs. RESPIRATORY: Clear to auscultation. Breath sounds equal bilaterally. No wheezes, rales, or rhonchi. GASTROINTESTINAL: Abdomen soft, non-tender, nondistended. EXTREMITIES: No edema or joint tenderness. BACK: Nontender without deformity or crepitance. No flank tenderness. NEURO: AOx3. SKIN: 2 x 4 cm area of erythema, warmth, tenderness and minimal fluctuance in right groin with evidence of spontaneous drainage. No lymphangitis, no current drainage Initial Vital Signs Initial Vital Signs: Vital Signs Temperature 97.2 F L 09/06/22 18:34 Pulse Rate 75 09/06/22 18:34 Respiratory Rate 18 09/06/22 18:34 Blood Pressure 113/67 09/06/22 18:34 Pulse Oximetry 99 09/06/22 18:34 Oxygen Delivery Method Room Air 09/06/22 18:34 Procedures Abscess I/D I&D #1: Site: abdomen (Right inguinal region) Side (if applicable): right Local Anesthetic: lidocaine 1% and with epi Amount of anesthesia used (mL): 5 Technique: incised with #11 blade Amount of fluid expressed (mL): 3 Irrigation: Yes Packing used?: none Complications: pain Course Orders Ordered: Discontinued Medications Hydrocodone Bitart/Acetaminophen (Hydrocodone/Acet 5/325 Prepack) 1 bottle MISC SEEINSTR ONE Stop: 09/07/22 01:03 Last Admin: 09/07/22 01:13 Dose: Not Given Documented By: HOOD Doxycycline Hyclate (Doxycycline Hyclate 100 Mg Tablet) 100 mg PO NOW ONE Stop: 09/07/22 01:03 Last Admin: 09/07/22 01:11 Dose: 100 mg Documented By: HOOD Vital Signs Vital signs: Vital Signs - 8 hr 09/06/22 18:34 09/06/22 20:44 09/07/22 00:09 Temperature 97.2 F L Pulse Rate 75 66 70 Respiratory Rate 18 18 Blood Pressure 113/67 125/69 109/56 L Pulse Oximetry 99 98 97 Oxygen Delivery Method Room Air Room Air Room Air MDM - Skin/Abscess/Foreign Bdy MDM Narrative Medical decision making narrative: 42-year-old male with painful red lump in right groin. Though he is concerned about possible spider bite he denies seeing any spider does admit to a history of MRSA skin infections. He has no systemic complaints and is generally otherwise well. There is incision and drainage of small amount of purulent material which is cultured and sent to the lab. He is placed on doxycycline with prescription sent to his pharmacy of choice. His questions have been answered to his apparent satisfaction. Return precautions including increasing pain, fever, vomiting or other concerning symptoms related to the patient. He states he understands and agrees with diagnosis and plan and has had questions answered to his apparent satisfaction Discharge Plan Departure Patient Disposition: Home Clinical Impression: Cutaneous abscess Instructions: DI for Skin Abscess Activity Restrictions/Additional Instructions: *You have been diagnosed with [Right inguinal skin abscess ] *What to do: *Please continue to take your regular medications as directed. [ x] New medication prescriptions sent to your pharmacy: [ [facility]] [ ] New medication written as a paper prescription [ ] No new medications given *Please follow up with your primary care provider in 2-3 days, call for an appointment. Let them know you were seen in the Emergency Department and that we ask that you be seen in follow up. We will electronically transmit a record of today's note if your PCP is in our system *If you do not have a primary care provider please contact the [facility] Resource line at [phone]. They will ask some questions about your medical history and help get you set up with a doctor in the community. *Return to Emergency Department if you should have any new, worsening or concerning symptoms, such as [fever greater than 101 F, shaking chills, worsening pain, persistent vomiting or other bothersome symptoms] Prescriptions: New doxycycline hyclate 100 mg tablet 100 mg PO BID Qty: 20 0RF No Action doxycycline monohydrate 100 mg tablet 100 mg PO BID Qty: 28 0RF hydrocodone-acetaminophen 5-325 mg Tablet 1 tab PO Q4-8H PRN (Reason: Pain, Severe (7-10)) Qty: 35 0RF phenazopyridine [Pyridium] 100 mg tablet 100 mg PO TID PRN (Reason: pain) Qty: 6 0RF Stand Alone Forms: Patient Portal/API
[2022-09-07 00:09] VITALS: BP 109/56; PULSE 70; RESP 18; O2SAT 97
--- NOTE | 2022-09-07 00:30 | PC.NURSE ---
pt received to [facility] 10 Dr White in to evaluate and drain abscess, evaluation and assessment per Dr White
[2022-09-07] MEDS: DOXYCYCLINE HYCLATE 100 MG TABLET PO (01:11)
== END 2022-09-07 01:18 | disposition home or self-care (01) ==
PROVIDERS: Emergency Provider Emergency Medicine
DX: L02.214 Cutaneous abscess of groin (principal)
CPT/HCPCS: 10060; 99283

== ENCOUNTER 2022-09-07 06:09 | Emergency (ER) | payer OTHER, MEDICAID, SELFPAY ==
[2021-07-18 11:21] VITALS: BMI 31.8
--- NOTE | 2022-09-07 06:16 | PC.NURSE ---
pt was brought in by EMS and taken to triage pt began yelling obscenities at staff instructed that yelling would not be tolerated as there are other pts in the ED. pt continued to yell obscenities stating all you had to fucking do is get me a ride home I would get in the taxi right now. explained to pt as was explained when he was previously dc that he was responsible for his way home and the taxis did not run after 1am when he was dx. pt continued to yell at staff stating just get away from me bitch, Attempted to explain to pt that we would obtain his vital signs and then he would go to the waiting room. pt stated again just get away from me bitch. pt radu to leave and stated how do you get out of this ed. the door was opened for him and he was shone the way out. pt left the department and went out side continously yelling obscenities. pt was also told when he was talking about the ride home that his brother recently came by to pick him up he stated he won't come back and I don't know his number security was called by registration when pt first started yelling obscenities
== END 2022-09-07 06:27 | disposition left against medical advice (07) ==
PROVIDERS: Emergency Provider Emergency Medicine